=== PATIENT | male | born 1960 | race Caucasian/White ===

== ENCOUNTER 2018-07-07 12:13 | Inpatient (IN) | payer MEDICARE, MEDICAID ==
--- NOTE | 2018-07-07 12:55 | ED ---
General Adult HPI - General Chief complaint: Psychiatric Symptoms Stated complaint: mental health Time Seen by Provider: 07/07/18 12:26 Source: patient, RN notes reviewed Mode of arrival: ambulatory Limitations: no limitations - History of Present Illness Initial comments: Patient is a 58-year-old male presenting to the emergency room today with chief complaint of increased suicidal thoughts. Patient does admit that he had thoughts of jumping in front of a truck or a train. He states that the thoughts were becoming stronger last night so he came here today to be evaluated. Patient denies any thoughts of hurting anyone else. He denies any recent medication changes. Patient denies any recent fever, chills, shortness of breath, chest pain, back pain, abdominal pain, nausea or vomiting, numbness or tingling, dysuria or hematuria, constipation or diarrhea, headaches or visual changes, or any other complaints. - Related Data Home Medications Medication Instructions Recorded Confirmed Aspirin EC [Ecotrin Low Dose] 81 mg PO DAILY 07/07/18 07/07/18 Atorvastatin [Lipitor] 80 mg PO HS 07/07/18 07/07/18 Cyclobenzaprine [Flexeril] 5 mg PO HS PRN 07/07/18 07/07/18 Ergocalciferol (Vitamin D2) 50,000 unit PO Q7D 07/07/18 07/07/18 [Vitamin D2] Gabapentin 600 mg PO TID 07/07/18 07/07/18 HYDROcodone/APAP 10-325MG [[place] 1 tab PO BID PRN 07/07/18 07/07/18 10-325] Isosorbide Mononitrate ER [Imdur] 30 mg PO DAILY 07/07/18 07/07/18 Metoprolol Tartrate 25 mg PO DAILY 07/07/18 07/07/18 Multivitamin,Therapeutic [Thera] 1 tab PO DAILY 07/07/18 07/07/18 Nitroglycerin Sl Tabs [Nitrostat] 0.4 mg SUBLINGUAL Q5M PRN 07/07/18 07/07/18 Omeprazole 20 mg PO DAILY 07/07/18 07/07/18 QUEtiapine FUMARATE 400 mg PO HS 07/07/18 07/07/18 Ranitidine HCl 150 mg PO HS 07/07/18 07/07/18 Sertraline [Zoloft] 100 mg PO DAILY 07/07/18 07/07/18 buPROPion [Wellbutrin] 100 mg PO DAILY 07/07/18 07/07/18 traZODone HCL 12.5 mg PO QID PRN 07/07/18 07/07/18 Allergies Allergy/AdvReac Type Severity Reaction Status Date / Time No Known Allergies Allergy Verified 07/07/18 13:00 Review of Systems ROS Statement: Those systems with pertinent positive or pertinent negative responses have been documented in the HPI. ROS Other: All systems not noted in ROS Statement are negative. Past Medical History Past Medical History: Coronary Artery Disease (CAD), CVA/TIA, Hyperlipidemia, Myocardial Infarction ([place]) Additional Past Medical History / Comment(s): pneumonia, closed head injury History of Any Multi-Drug Resistant Organisms: None Reported Past Surgical History: Heart Catheterization With Stent, Orthopedic Surgery Additional Past Surgical History / Comment(s): esophogeal surgery, left femur and left hip with rods Past Psychological History: Anxiety, Depression Smoking Status: Current every day smoker Past Alcohol Use History: None Reported Past Drug Use History: Marijuana General Exam - General Exam Comments Initial Comments: General: The patient is awake and alert, in no distress, and does not appear acutely ill. Eye: There is normal conjunctiva bilaterally. No signs of icterus. Ears, nose, mouth and throat: There are moist mucous membranes and no oral lesions. Neck: The neck is supple Cardiovascular: There is a regular rate and rhythm. No murmur, rub or gallop is appreciated. Respiratory: Lungs are clear to auscultation, respirations are non-labored, breath sounds are equal. No wheezes, stridor, rales, or rhonchi. Musculoskeletal: Normal ROM, no tenderness. Neurological: A&O x 3. CN II-XII intact, There are no obvious motor or sensory deficits. Coordination appears grossly intact. Speech is normal. Skin: Skin is warm and dry and no rashes or lesions are noted. Psychiatric: Cooperative Limitations: no limitations Course Vital Signs 07/07/18 12:20 Temperature 98.2 F Pulse Rate 95 Respiratory 18 Rate Blood Pressure 130/82 O2 Sat by Pulse 97 Oximetry Medical Decision Making - Medical Decision Making Patient seen here in the emergency room by [facility]. They've recommended the patient be admitted to the hospital. Patient is willing to sign himself in. - Lab Data Lab Results 07/07/18 Range/Units 13:07 Urine Opiates Screen Not Detected (NotDetected) Ur Oxycodone Screen Not Detected (NotDetected) Urine Methadone Screen Not Detected (NotDetected) Ur Propoxyphene Screen Not Detected (NotDetected) Ur Barbiturates Screen Not Detected (NotDetected) U Tricyclic Antidepress Detected H (NotDetected) Ur Phencyclidine Scrn Not Detected (NotDetected) Ur Amphetamines Screen Not Detected (NotDetected) U Methamphetamines Scrn Not Detected (NotDetected) U Benzodiazepines Scrn Not Detected (NotDetected) Urine Cocaine Screen Not Detected (NotDetected) U Marijuana (THC) Screen Detected H (NotDetected) Disposition Clinical Impression: Suicidal ideation Disposition: TRANSFER TO PSYCH HOSP/UNIT Condition: Stable Is patient prescribed a controlled substance at d/c from ED?: No Referrals: [facility] [Primary Care Provider] - 1-2 days Time of Disposition: 15:28
[2018-07-07 13:38] LABS: Amphetamine Screen,Urine Not Detected (NotDetected); Barbiturate Screen,Urine Not Detected (NotDetected); Benzodiazepines Screen,Urine Not Detected (NotDetected); Cocaine Screen,Urine Not Detected (NotDetected); Methadone Screen, Urine Not Detected (NotDetected); Opiate Screen,Urine Not Detected (NotDetected); Oxycodone Screen, Urine Not Detected (NotDetected); Phencyclidine Screen,Urine Not Detected (NotDetected); Tricyclic Antidepressant,Urine Detected (NotDetected); Urn Cannabinoid Scrn Detected (NotDetected)
[2018-07-07] MEDS ORDERED: ACETAMINOPHEN TAB 500 MG TAB PO STA (16:34)
[2018-07-07] MEDS ORDERED: LORazepam 1 MG TAB PO PRN (17:54)
[2018-07-07] MEDS ORDERED: MAGNESIUM HYDROXIDE 2,400 MG/10 ML CUP PO PRN (17:54)
[2018-07-07] MEDS ORDERED: ZIPRASIDONE 20 MG VIAL IM PRN (17:54)
[2018-07-07] MEDS ORDERED: MAG HYDROX/AL HYDROX/SIMETH 30 ML CUP PO PRN (17:54)
[2018-07-07] MEDS ORDERED: CYCLOBENZAPRINE 5 MG TAB PO PRN (17:56)
[2018-07-07] MEDS ORDERED: traZODone HCL 50 MG TAB PO PRN (17:56)
[2018-07-07] MEDS ORDERED: NITROGLYCERIN SL TABS 0.4 MG TAB SUBLINGUAL PRN (17:56)
[2018-07-07] MEDS ORDERED: LORazepam 2 MG/ML INJ IM PRN (17:56)
[2018-07-07] MEDS: NICOTINE 14MG/24HR PATCH TRANSDERM SCH (19:18)
[2018-07-07] MEDS ORDERED: QUEtiapine 400 MG TAB PO SCH (21:00)
[2018-07-07] MEDS: FAMOTIDINE 20 MG TAB PO SCH (21:42)
[2018-07-07] MEDS: ATORVASTATIN 80 MG TAB PO SCH (21:42)
[2018-07-07] MEDS: GABAPENTIN 300 MG CAP PO SCH (21:42)
--- NOTE | 2018-07-08 00:55 | P.HPIM ---
History of Present Illness H&P Date: 07/08/18 Patient is a 58-year-old male with a PMH of lumbar spinal DJD, coronary artery disease status post multiple stents, and history of CVA presented to the ED due to worsening depression and suicidal ideation. The patient notes that he has been under a lot of stress recently and feels that he is not able to cope. He notes that along with caring for his disabled son and the patient's chronic debility due to his lower back pain and history of fracture, he has been having a difficult time with performing his ADLs. The patient notes that he had thought about possibly stepping in front of a bus or laying down on the train tracks and his life. He otherwise denied any active complaints including chest pain, shortness of breath, nausea, vomiting, fever, chills, or dysuria. The patient denied any active homicidal or suicidal ideations. Review of Systems Pertinent positives and negatives as discussed in HPI, a complete review of systems was performed and all other systems are negative. Past Medical History Past Medical History: Coronary Artery Disease (CAD), CVA/TIA, Hyperlipidemia, Myocardial Infarction ([place]) Additional Past Medical History / Comment(s): pneumonia, closed head injury History of Any Multi-Drug Resistant Organisms: None Reported Past Surgical History: Heart Catheterization With Stent, Orthopedic Surgery Additional Past Surgical History / Comment(s): esophogeal surgery, left femur and left hip with rods Past Psychological History: Anxiety, Depression Smoking Status: Current every day smoker Past Alcohol Use History: None Reported Past Drug Use History: Marijuana Medications and Allergies Home Medications Medication Instructions Recorded Confirmed Type Apixaban [Eliquis] 5 mg PO BID 07/07/18 07/07/18 History Aspirin EC [Ecotrin Low Dose] 81 mg PO DAILY 07/07/18 07/07/18 History Atorvastatin [Lipitor] 80 mg PO HS 07/07/18 07/07/18 History Cyclobenzaprine [Flexeril] 5 mg PO TID PRN 07/07/18 07/07/18 History Ergocalciferol (Vitamin D2) 50,000 unit PO Q7D 07/07/18 07/07/18 History [Vitamin D2] Gabapentin 600 mg PO TID 07/07/18 07/07/18 History Isosorbide Mononitrate ER [Imdur] 30 mg PO DAILY 07/07/18 07/07/18 History Metoprolol Tartrate 25 mg PO DAILY 07/07/18 07/07/18 History Multivitamin,Therapeutic [Thera] 1 tab PO DAILY 07/07/18 07/07/18 History Nitroglycerin Sl Tabs [Nitrostat] 0.4 mg SUBLINGUAL Q5M PRN 07/07/18 07/07/18 History Omeprazole 20 mg PO DAILY 07/07/18 07/07/18 History Pregabalin [Lyrica] 75 mg PO BID 07/07/18 07/07/18 History QUEtiapine FUMARATE [SEROquel] 300 mg PO HS 07/07/18 07/07/18 History Ranitidine HCl 150 mg PO HS 07/07/18 07/07/18 History Sertraline [Zoloft] 100 mg PO DAILY 07/07/18 07/07/18 History buPROPion [Wellbutrin] 100 mg PO DAILY 07/07/18 07/07/18 History traZODone HCL 12.5 mg PO QID PRN 07/07/18 07/07/18 History Allergies Allergy/AdvReac Type Severity Reaction Status Date / Time No Known Allergies Allergy Verified 07/07/18 13:00 Physical Exam Vitals: Vital Signs Temp Pulse Pulse Resp BP BP Pulse Ox 07/07/18 18:30 96.9 F L 72 16 117/72 07/07/18 16:03 86 15 136/77 96 07/07/18 12:20 98.2 F 95 18 130/82 97 Intake and Output 07/07/18 07/07/18 07/08/18 14:59 22:59 06:59 Other: Weight 90.628 kg General: non toxic, no distress, appears at stated age, normal weight Derm: no unusual rashes/lesions no unusual ecchymoses, warm, dry Head: atraumatic, normocephalic, symmetric Eyes: EOMI, no lid lag, anicteric sclera, pupils equal round reactive to light ENT: Nose and ears atraumatic, no thrush, no pharyngeal erythema Neck: No thyromegaly, no cervical lymphadenopathy, trachea midline, supple Mouth: no lip lesion, mucus membranes moist Cardiovascular: S1S2 reg, no murmur, positive posterior tibial pulse bilateral, no edema, capillary refill less than 2 seconds Lungs: CTA bilateral, no rhonchi, no rales , no accessory muscle use Abdominal: soft, nontender to palpation, no guarding, no appreciable organomegaly, normal bowel sounds Ext: no gross muscle atrophy, muscle strength 5 out of 5 in all 4 extremities grossly, no contractures, Neuro: CN II-XI grossly intact, light touch intact all 4 extremities, finger to nose within normal limits, Psych: Alert, oriented, appropriate affect Results Labs: Abnormal Lab Results - Last 24 Hours (Table) 07/07/18 Range/Units 13:07 U Tricyclic Antidepress Detected H (NotDetected) U Marijuana (THC) Screen Detected H (NotDetected) Assessment and Plan Plan: Suicidal ideation, depression -As per psychiatry -Follow-up TSH Coronary artery disease and history of CVA -Continue with home medications: Aspirin, Lipitor Thank you for allowing us to participate in the care of this patient. We will follow peripherally. Do not hesitate to contact us with questions. Someone can be reached from the [facility] hospitalist group at all hours of the day at [phone].
[2018-07-08 08:33] LABS: Basophils % (A) 1 %; Eosinophils # (A) 0.1 k/uL (0-0.7); Eosinophils % (A) 2 %; HCT 46.7 % (39.0-53.0); Lymphocytes # (A) 1.4 k/uL (1.0-4.8); Lymphocytes % (A) 25 %; MCH 28.9 pg (25.0-35.0); MCHC 32.2 g/dL (31.0-37.0); MCV 89.8 fL (80.0-100.0); Mean Platelet Volume 7.5; Monocytes # (A) 0.3 k/uL (0-1.0); Monocytes % (A) 6 %; Neutrophils # (A) 3.7 k/uL (1.3-7.7); Neutrophils % (A) 66 %; Platelet Count 190 k/uL (150-450); WBC 5.6 k/uL (3.8-10.6)
[2018-07-08] MEDS: PANTOPRAZOLE 40 MG TABLET PO SCH (08:46)
[2018-07-08] MEDS: ASPIRIN 81 MG PO SCH (08:46)
[2018-07-08] MEDS: ISOSORBIDE MONONITRATE ER 30 MG TAB.ER.24H PO SCH (08:47)
[2018-07-08] MEDS: METOPROLOL TARTRATE 25 MG TAB PO SCH (08:47)
[2018-07-08] MEDS: NICOTINE 14MG/24HR PATCH TRANSDERM SCH (08:47)
[2018-07-08] MEDS: SERTRALINE 100 MG TAB PO SCH (08:47)
[2018-07-08 08:49] LABS: ALT 34 U/L (21-72); AST 22 U/L (17-59); Albumin 3.8 g/dL (3.5-5.0); Alkaline Phosphatase 170 U/L (38-126); Anion Gap 5 mmol/L; Blood Urea Nitrogen 13 mg/dL (9-20); Calcium 9.6 mg/dL (8.4-10.2); Carbon Dioxide 26 mmol/L (22-30); Chloride 109 mmol/L (98-107); Cholesterol 160 mg/dL (<200); Glucose 97 mg/dL (74-99); HDL Cholesterol 54 mg/dL (40-60); LDL Cholesterol,Calculated 69 mg/dL (0-99); Potassium 4.7 mmol/L (3.5-5.1); Sodium 140 mmol/L (137-145); Total Bilirubin 0.4 mg/dL (0.2-1.3); Total Protein 6.3 g/dL (6.3-8.2); Triglycerides 185 mg/dL (<150)
[2018-07-08] MEDS: GABAPENTIN 300 MG CAP PO SCH ×3 (08:50→20:53)
[2018-07-08] MEDS ORDERED: buPROPion 100 MG TAB PO SCH (09:00)
--- NOTE | 2018-07-08 11:27 | HP ---
HISTORY AND PHYSICAL DATE OF SERVICE DICTATION: 07/08/2018 IDENTIFYING DATA: This patient is a 58-year-old male who was admitted to the mental health unit through the emergency room for acute suicidal ideation. HISTORY OF PRESENT ILLNESS: The patient had presented to the emergency room as he drove himself to the hospital stating he had acute suicidal ideation. He reported a plan of wanting to jump in front of a train or a semi-truck. He indicates his mood has been markedly depressed. He feels hopeless. He has been tearful on a regular basis. Sleep has been disturbed. Appetite is decreased. He finds he has low energy, motivation, and has feelings of anhedonia. He indicates that he is prescribed psychotropic medication, but has been noncompliant with those for approximately 12 days out of the last 30 days. He states he stopped taking them consistently as it did not matter as he was going to end his life anyway. He reports that he is homeless and he is overwhelmed with having nowhere to live and not being able to find any resources to get his own place. He indicates he has applied for senior housing [place] response. He reports his concentration and memory have been impacted by the stroke he suffered this past summer. He reports no thoughts of harming others. He endorses no current auditory or visual hallucinations or any specific delusions. He states for the last 3 years he had intermittently experienced an auditory hallucination that he named JED. He states that this voice would make several derogatory statements. He reports that he has not had that hallucination for the last 2 months. He endorses no hypomanic or manic episodes. He reports no ownership of firearms. PAST PSYCHIATRIC HISTORY: This would be his third or fourth inpatient admission. His last was at [facility] approximately 3 months ago. He indicates that he is open with [facility] and sees a therapist named Renee. He is unsure as to who his prescribing clinician is. He describes a history of being on Zoloft 100 mg daily, Seroquel 300 mg at bedtime, Wellbutrin 100 mg daily, trazodone 12.5 mg up to 4 times daily as needed. He does have a history of suicide attempts in the recent past where he stood on the train tracks, hoping an [employer] train would come. He states he was found by another individual and was talked into going to the hospital, which precipitated his admission to [facility]. He does not recall what other psychotropic medications he has been on in the past. PAST MEDICAL HISTORY: History of cerebrovascular accident last summer, history of 2 myocardial infarctions. He has a total of 4 stents placed, history of closed head injury where he fell off of a porch face-first, fracturing his cheek bones and palate. MEDICATIONS: He is currently on aspirin, Lipitor, Flexeril, vitamin D, Pepcid, Neurontin, Imdur, Lopressor, multivitamin, Nitrostat as needed, Protonix. ALLERGIES: No known drug allergies. CHEMICAL DEPENDENCY HISTORY: He reports using 1 to 2 beers per week. He reports using marijuana on a frequent basis for pain, as he is no longer on [place]. He reports no use of any other illicit drugs. He has never been placed in residential treatment for chemical dependency reasons. FAMILY PSYCHIATRIC HISTORY: A sibling had an undescribed psychiatric illness. No history of suicides in the family. FAMILY CHEMICAL DEPENDENCY HISTORY: Alcohol use has been prevalent in both sides of his family. SOCIAL HISTORY: The patient is 58 years old. He is . He is homeless. He is unemployed and has a disability income. He has an 8th grade education. No history of service. He has 1 living brother, 1 living sister. Two sisters are . He has 2 children, a 34-year-old daughter and a 36-year-old son. He states that his son incurred what appears to be an anoxic injury and has subsequent cognitive impairment. He is originally from [place]. LEGAL HISTORY: He was arrested in the s for DUI. ABUSE HISTORY: None reported. MENTAL STATUS EXAM: The patient is a male appearing his stated age. He has a disheveled appearance. He is dressed in hospital attire. He is ambulating with a wheeled walker. He indicates his mood is depressed. He feels hopeless. He has ongoing suicidal thoughts, although he feels safe here in the hospital. He reports no homicidal ideation, intent, or plan. He describes no current auditory or visual hallucinations or any specific delusions. He demonstrates no tangential thinking, loose associations or flight of ideas and does not appear hypomanic or manic. He does demonstrate word- finding difficulties throughout the conversation and he indicates having memory impairment. He demonstrates no verbal or physical aggressiveness. He demonstrates no involuntary repetitive movements. Affect is dysphoric. He is oriented to person, place, and dates. He has difficulty with short-term recall. He could not name the days of the week backwards as he omitted several days with his attempt. STRENGTHS: Willingness to receive treatment, income, open with [facility]. WEAKNESSES: Homelessness, medical comorbidities, intellect average. IMPRESSION: 1. Major depressive disorder, recurrent, severe, without psychosis. Rule out cannabis use disorder. 2. Medical comorbidities include history of cerebrovascular accident, myocardial infarction. 3. Homelessness, limited support. PLAN OF TREATMENT: The patient has been admitted to the mental health unit voluntarily. We reviewed his presenting symptoms and treatment options. We will continue him on the Seroquel at 300 mg at bedtime, Zoloft 100 mg daily, Wellbutrin will be changed to the XL formulation using 150 mg daily. We will review any available [facility] records in terms of medication management. He has already been seen by Internal Medicine for routine history and physical exam. Social Work has met with the patient to complete a psychosocial assessment and begin discharge planning. We will monitor him for safety and encourage full participation in the milieu. We will involve any available family, friends in treatment and discharge planning as he will allow. GRACE / ERIK: [id number] /
[2018-07-08] MEDS: MULTIVITAMINS, THERA 1 EACH TAB PO SCH (12:31)
[2018-07-08] MEDS: ACETAMINOPHEN TAB 325 MG TAB PO PRN (12:31)
[2018-07-08 17:36] LABS: Hemoglobin A1C 5.7 % (4.0-6.0)
[2018-07-08] MEDS: NYSTATIN 100,000 UNIT/GM POWD 15 GM TOPICAL SCH (20:52)
[2018-07-08] MEDS: FAMOTIDINE 20 MG TAB PO SCH (20:53)
[2018-07-08] MEDS: ATORVASTATIN 80 MG TAB PO SCH (20:53)
[2018-07-08] MEDS: QUEtiapine 100 MG TAB PO SCH (20:53)
[2018-07-09] MEDS: NICOTINE 14MG/24HR PATCH TRANSDERM SCH (09:06)
[2018-07-09] MEDS: PANTOPRAZOLE 40 MG TABLET PO SCH (09:06)
[2018-07-09] MEDS: GABAPENTIN 300 MG CAP PO SCH ×3 (09:06→21:36)
[2018-07-09] MEDS: ASPIRIN 81 MG PO SCH (09:06)
[2018-07-09] MEDS: SERTRALINE 100 MG TAB PO SCH (09:06)
[2018-07-09] MEDS: METOPROLOL TARTRATE 25 MG TAB PO SCH (09:06)
[2018-07-09] MEDS: buPROPion XL 150 MG TAB.ER.24H PO SCH (09:06)
[2018-07-09] MEDS: ISOSORBIDE MONONITRATE ER 30 MG TAB.ER.24H PO SCH (09:09)
[2018-07-09] MEDS: NYSTATIN 100,000 UNIT/GM POWD 15 GM TOPICAL SCH ×2 (09:40→21:34)
--- NOTE | 2018-07-09 10:57 | P.PN ---
Progress Note - Text Interval history: The patient is found at the medication window he follows me to an interview room. He indicates his mood is about the same in terms of feeling depressed and hopeless. He reports making an effort to attend some groups. Sleep was interrupted last night but staff reported he slept 7 hours. Appetite stable. He discussed having some phone contact with his son. The patient indicates that he has somewhere to stay for approximately a week and a half upon discharge but is still concerned that he needs another place to say permanently. We reviewed his psychotropic medications he has no questions or concerns regarding those today. Interestingly the patient states he does not recall our conversation at all from yesterday. Staff report that he does clearly have some short-term memory impairment as well as word finding difficulty. Mental status exam: The patient is alert he is a disheveled appearance he is ambulating without his walker. Hygiene grooming fair. Eye contact is intermittent. He does have spontaneous speech. He reports continued hopelessness thoughts with suicidal ideation although he feels safe here in the hospital. No homicidal ideation intent or plan. He is reporting no auditory or visual hallucinations or any specific delusions. He demonstrates no verbal or physical aggressiveness no involuntary repetitive movements. Insight and judgment impaired. Throughout the session he describes word finding difficulties and reports no recollection of our interaction yesterday. Plan: The patient will continue on his current psychotropic medications. We will continue to encourage his full participation in the milieu. We will monitor his vital signs. He requires continued psychiatric hospitalization for acute safety reasons.
[2018-07-09 11:54] VITALS: BMI 30.7
[2018-07-09] MEDS: MULTIVITAMINS, THERA 1 EACH TAB PO SCH (13:26)
[2018-07-09] MEDS ORDERED: INFLUENZA VACCINE (6 MOS+) 60 MCG/0.5 ML SYRINGE IM ONE (14:27)
[2018-07-09] MEDS: ACETAMINOPHEN TAB 325 MG TAB PO PRN (14:58)
[2018-07-09] MEDS: QUEtiapine 100 MG TAB PO SCH (21:30)
[2018-07-09] MEDS: FAMOTIDINE 20 MG TAB PO SCH (21:33)
[2018-07-09] MEDS: ATORVASTATIN 80 MG TAB PO SCH (21:33)
[2018-07-10] MEDS: buPROPion XL 150 MG TAB.ER.24H PO SCH (09:00)
[2018-07-10] MEDS: NICOTINE 14MG/24HR PATCH TRANSDERM SCH (09:00)
[2018-07-10] MEDS: ASPIRIN 81 MG PO SCH (09:00)
[2018-07-10] MEDS: NYSTATIN 100,000 UNIT/GM POWD 15 GM TOPICAL SCH ×2 (09:01→21:14)
[2018-07-10] MEDS: PANTOPRAZOLE 40 MG TABLET PO SCH (09:01)
[2018-07-10] MEDS: GABAPENTIN 300 MG CAP PO SCH ×3 (09:01→21:14)
[2018-07-10] MEDS: ISOSORBIDE MONONITRATE ER 30 MG TAB.ER.24H PO SCH (09:01)
[2018-07-10] MEDS: SERTRALINE 100 MG TAB PO SCH (09:01)
[2018-07-10] MEDS: METOPROLOL TARTRATE 25 MG TAB PO SCH (09:01)
--- NOTE | 2018-07-10 09:33 | P.PN ---
Progress Note - Text Interval history: The patient is found in the hallway he follows me to an interview room. He indicates that he feels a little better than yesterday. He still feels depressed and hopeless at times. He is feeling less anxious. Describes having some difficulty sleeping. He states historically he has done better with Seroquel at 400 mg at bedtime. He indicates he has been eating. He has no other questions regarding his psychotropic medication. He reports attending some groups. Mental status exam: The patient is alert he is a disheveled appearance he is dressed in his own clothing. Hygiene is adequate. Eye contact is appropriate speech is fluent spontaneous nonpressured. He indicates his mood is a little better than yesterday. He still feels down and sad at times with some hopeless thinking. He reports feeling safe here in the hospital in terms of suicidal ideation. He reports no homicidal ideation intent or plan. He is reporting no auditory or visual hallucinations or any specific delusions. He demonstrates no objective evidence of psychosis. He does struggle with word finding throughout the conversation. Short-term memory is impacted we presumed from his prior stroke. He is apologetic when he cannot remember details from yesterday. He demonstrates no verbal or physical aggressiveness. He maintains a constricted affect. He demonstrates no involuntary repetitive movements. He is oriented to day the week as is June is 2018. Plan: The patient will continue on his current medications however we will titrate the Seroquel to 400 mg at bedtime. We will monitor him for safety and encourage continued participation in the milieu. There appears to be some improvement since he has been here he may be appropriate for discharge as soon as Friday. We will continue to assess him for safety. Vital signs reviewed. He requires continued psychiatric hospitalization for assessment and treatment.
[2018-07-10] MEDS: MULTIVITAMINS, THERA 1 EACH TAB PO SCH (12:49)
[2018-07-10] MEDS: ACETAMINOPHEN TAB 325 MG TAB PO PRN (16:16)
[2018-07-10] MEDS: QUEtiapine 400 MG TAB PO SCH (21:14)
[2018-07-10] MEDS: FAMOTIDINE 20 MG TAB PO SCH (21:14)
[2018-07-10] MEDS: ATORVASTATIN 80 MG TAB PO SCH (21:14)
[2018-07-11] MEDS: METOPROLOL TARTRATE 25 MG TAB PO SCH (09:08)
[2018-07-11] MEDS: SERTRALINE 100 MG TAB PO SCH (09:08)
[2018-07-11] MEDS: PANTOPRAZOLE 40 MG TABLET PO SCH (09:08)
[2018-07-11] MEDS: buPROPion XL 150 MG TAB.ER.24H PO SCH (09:08)
[2018-07-11] MEDS: ASPIRIN 81 MG PO SCH (09:08)
[2018-07-11] MEDS: NICOTINE 14MG/24HR PATCH TRANSDERM SCH (09:08)
--- NOTE | 2018-07-11 09:10 | P.PN ---
Progress Note - Text Interval history: The patient is found in the hallway he follows me to an interview room. He indicates his mood is improving. He is looking forward to being discharged and we discussed Friday as a possible discharge date. He reports no suicidal ideation. Hopeless thinking is resolving. He states he slept much better with the titration of Seroquel staff reportedly slept 7 hours. Appetite stable he has been attending groups. He describes significant physical pain and acid we titrate the Neurontin further. Mental status exam: The patient is an overweight male he seated calmly in his chair. He is pleasant and cooperative. He denies having any acute suicidal or homicidal ideation intent or plan. Affect is brighter. He is reporting no auditory or visual hallucinations or any specific delusions. There is no observed evidence of psychosis. He does not appear hypomanic or manic. He demonstrates no verbal or physical aggressiveness he demonstrates no repetitive involuntary movements. Insight and judgment slowly improving. He continues to demonstrate the same word finding difficulty with short-term memory impairment. Plan: The patient will continue on his current psychotropics we will titrate the Neurontin 800 mg 3 times daily for pain. Vital signs reviewed. He is encouraged to continue participating in the milieu. We will monitor him for safety. If he continues to clinically improving anticipate a discharge of Friday.
[2018-07-11] MEDS: NYSTATIN 100,000 UNIT/GM POWD 15 GM TOPICAL SCH ×2 (09:13→21:08)
[2018-07-11] MEDS: ACETAMINOPHEN TAB 325 MG TAB PO PRN ×2 (09:14→17:42)
[2018-07-11] MEDS: ISOSORBIDE MONONITRATE ER 30 MG TAB.ER.24H PO SCH (09:25)
[2018-07-11] MEDS: GABAPENTIN 300 MG CAP PO SCH (09:28)
[2018-07-11] MEDS ORDERED: GABAPENTIN 300 MG CAP PO STA (10:39)
[2018-07-11] MEDS: MULTIVITAMINS, THERA 1 EACH TAB PO SCH (12:57)
[2018-07-11] MEDS: GABAPENTIN 400 MG CAP PO SCH ×2 (15:57→21:08)
[2018-07-11] MEDS: FAMOTIDINE 20 MG TAB PO SCH (21:08)
[2018-07-11] MEDS: ATORVASTATIN 80 MG TAB PO SCH (21:08)
[2018-07-11] MEDS: QUEtiapine 400 MG TAB PO SCH (21:08)
[2018-07-12] MEDS: buPROPion XL 150 MG TAB.ER.24H PO SCH (08:54)
[2018-07-12] MEDS: PANTOPRAZOLE 40 MG TABLET PO SCH (08:55)
[2018-07-12] MEDS: ASPIRIN 81 MG PO SCH (08:55)
[2018-07-12] MEDS: ISOSORBIDE MONONITRATE ER 30 MG TAB.ER.24H PO SCH (08:55)
[2018-07-12] MEDS: METOPROLOL TARTRATE 25 MG TAB PO SCH (08:55)
[2018-07-12] MEDS: GABAPENTIN 400 MG CAP PO SCH ×3 (08:55→21:03)
[2018-07-12] MEDS: NICOTINE 14MG/24HR PATCH TRANSDERM SCH (08:56)
[2018-07-12] MEDS: SERTRALINE 100 MG TAB PO SCH (08:56)
[2018-07-12] MEDS: NYSTATIN 100,000 UNIT/GM POWD 15 GM TOPICAL SCH ×2 (09:53→21:04)
[2018-07-12] MEDS: MULTIVITAMINS, THERA 1 EACH TAB PO SCH (11:50)
[2018-07-12] MEDS ORDERED: ERGOCALCIFEROL 50,000 UNIT CAP PO SCH (12:00)
--- NOTE | 2018-07-12 13:57 | P.PN ---
Progress Note - Text Interval history: The patient is found in the [facility] he follows me to an interview room. He indicates his mood is happy. He feels he progressively is doing better each day in terms of mood. He is looking forward to being discharged tomorrow. He has been attending groups. He has no questions or concerns regarding his medication. Mental status exam: The patient is alert he is dressed in his own clothing hygiene grooming are adequate. Speech is fluent spontaneous nonpressured. He denies having any suicidal or homicidal ideation intent or plan. He is no longer feeling hopeless. He is reporting no auditory or visual hallucinations or any specific delusions. He demonstrates no tangential thinking loose associations or flight of ideas he does not appear hypomanic or manic. He demonstrates no verbal or physical aggressiveness. Insight and judgment are improving. Plan: The patient will continue on his current psychiatric medication. He is clinically stabilizing we will anticipate a discharge tomorrow. We will continue monitoring him for safety and encouraging full participation in the milieu. Vital signs reviewed.
[2018-07-12] MEDS: FAMOTIDINE 20 MG TAB PO SCH (21:03)
[2018-07-12] MEDS: ATORVASTATIN 80 MG TAB PO SCH (21:03)
[2018-07-12] MEDS: QUEtiapine 400 MG TAB PO SCH (21:03)
[2018-07-13 06:49] VITALS: TEMP 98
[2018-07-13] MEDS: GABAPENTIN 400 MG CAP PO SCH (07:49)
[2018-07-13] MEDS: NICOTINE 14MG/24HR PATCH TRANSDERM SCH (07:49)
[2018-07-13] MEDS: ASPIRIN 81 MG PO SCH (07:49)
[2018-07-13] MEDS: buPROPion XL 150 MG TAB.ER.24H PO SCH (07:49)
[2018-07-13] MEDS: METOPROLOL TARTRATE 25 MG TAB PO SCH (07:49)
[2018-07-13] MEDS: ISOSORBIDE MONONITRATE ER 30 MG TAB.ER.24H PO SCH (07:49)
[2018-07-13] MEDS: PANTOPRAZOLE 40 MG TABLET PO SCH (07:50)
[2018-07-13] MEDS: SERTRALINE 100 MG TAB PO SCH (07:50)
[2018-07-13] MEDS: NYSTATIN 100,000 UNIT/GM POWD 15 GM TOPICAL SCH (07:56)
[2018-07-13 07:57] VITALS: BP 110/65; PULSE 74; RESP 18
--- NOTE | 2018-07-13 09:34 | P.DS ---
Providers Date of admission: 07/07/18 17:47 Expected date of discharge: 07/13/18 Attending physician: Ramon Hwang Consults: 07/07/18 17:54 Consult Physician Routine Consulting Provider: Keri Simental Consult Reason/Comments: H&P and medical Do you want consulting provider notified?: Yes Primary care physician: [facility] - Discharge Diagnosis(es) (1) Major depressive disorder, recurrent severe without psychotic features Current Visit: Yes Status: Acute Priority: High Hospital Course: Brief summary of admission note: This patient is a 58-year-old male who was admitted to the mental health unit through the emergency room for acute suicidal ideation. The patient had driven himself to the hospital with suicidal thoughts with a plan of jumping in front of a train or a semitruck. He reported feeling markedly depressed he was feeling hopeless and was tearful on a regular basis. Sleep appetite and energy were impaired. He had been partially compliant with his medications but reported missing numerous days. Confounding his situation, he is homeless. For full details please refer to my psychiatric evaluation dated 07/08/2018. Summary of hospital course: The patient was admitted to the mental health unit voluntarily. We reviewed his presenting symptoms and treatment options. We reinitiated his Zoloft Seroquel and Wellbutrin XL. The patient attended groups he demonstrated no agitated behavior. He was seen by internal medicine for routine history and physical exam. Social work met with the patient to complete a psychosocial assessment and for discharge planning purposes. During the course of the hospitalization the patient reported a resolution of his suicidal ideation. He demonstrated future oriented thinking. The patient attended groups and was able to attend to his activities of daily living here on the mental health unit. Mental status exam: The patient is a male appearing his stated age. He presents with adequate hygiene grooming eye contact is appropriate. He is dressed in his own clothing. Speech is fluent spontaneous nonpressured. He demonstrates no tangential thinking loose associations or flight of ideas. He does not appear hypomanic or manic. He is reporting no auditory or visual hallucinations or any specific delusions. There is no observed evidence of psychosis. He demonstrates no verbal or physical aggressiveness he demonstrates no involuntary repetitive movements. Affect is brighter he demonstrates an appropriate range of affect he identifies his mood as being good. Again he spontaneously describes future oriented thoughts. Insight and judgment have improved. Cognitively he does struggle with word finding and some short-term memory most likely due to his history of cerebrovascular accident. Impressions 1. Major depressive disorder recurrent severe without psychosis, rule out cannabis use disorder 2. Medical comorbidities include history of cerebrovascular accident myocardial infarction 3. Limited support Plan: The patient will be discharged mental health unit today he will reside with an acquaintance where he is renting a room. Social work will arrange his outpatient mental health follow-up. He will continue on Wellbutrin XL 150 mg in the morning Zoloft 100 mg in the evening Seroquel 400 mg in the evening. He will follow up with primary care and other specialists as needed. He is instructed to abstain from any use of alcohol marijuana or illicit drugs as these will elevate his safety risk. He did not wish to participate in inpatient chemical dependency treatment. At this time there is no imminent safety risk he is appropriate for transition to outpatient care. He is instructed to return to the hospital with any acute safety concerns. Patient Condition at Discharge: Stable Plan - Discharge Summary New Discharge Prescriptions: New buPROPion XL [Wellbutrin XL] 150 mg PO DAILY #30 tab.er.24h Cyclobenzaprine [Flexeril] 5 mg PO HS PRN #30 tab PRN Reason: Muscle Spasm Gabapentin [Neurontin] 800 mg PO TID #45 tablet Nicotine 14Mg/24Hr Patch [Habitrol] 1 patch TRANSDERM DAILY #10 patch Nystatin 100,000 Unit/gm Powd [Mycostatin Powder] 1 applic TOPICAL BID #1 applic QUEtiapine [SEROquel] 400 mg PO HS #30 tab Continue Aspirin EC [Ecotrin Low Dose] 81 mg PO DAILY #30 tablet. Atorvastatin [Lipitor] 80 mg PO HS #30 tab Ergocalciferol (Vitamin D2) [Vitamin D2] 50,000 unit PO Q7D #4 capsule Isosorbide Mononitrate ER [Imdur] 30 mg PO DAILY #30 tab.er.24h Metoprolol Tartrate 25 mg PO DAILY #30 tablet Multivitamin,Therapeutic [Thera] 1 tab PO DAILY #30 tablet Nitroglycerin Sl Tabs [Nitrostat] 0.4 mg SUBLINGUAL Q5M PRN #10 tab PRN Reason: CHEST PAIN Omeprazole 20 mg PO DAILY #30 capsule. Ranitidine HCl 150 mg PO HS #30 tablet Sertraline [Zoloft] 100 mg PO DAILY #30 tab Discontinued traZODone HCL 12.5 mg PO QID PRN PRN Reason: Pain Gabapentin 600 mg PO TID buPROPion [Wellbutrin] 100 mg PO DAILY Cyclobenzaprine [Flexeril] 5 mg PO TID PRN PRN Reason: Muscle Spasm QUEtiapine FUMARATE [SEROquel] 300 mg PO HS Pregabalin [Lyrica] 75 mg PO BID Apixaban [Eliquis] 5 mg PO BID Discharge Medication List Aspirin EC [Ecotrin Low Dose] 81 mg PO DAILY #30 tablet. 07/13/18 [Rx] Atorvastatin [Lipitor] 80 mg PO HS #30 tab 07/13/18 [Rx] Cyclobenzaprine [Flexeril] 5 mg PO HS PRN #30 tab 07/13/18 [Rx] Ergocalciferol (Vitamin D2) [Vitamin D2] 50,000 unit PO Q7D #4 capsule 07/13/18 [Rx] Gabapentin [Neurontin] 800 mg PO TID #45 tablet 07/13/18 [Rx] Isosorbide Mononitrate ER [Imdur] 30 mg PO DAILY #30 tab.er.24h 07/13/18 [Rx] Metoprolol Tartrate 25 mg PO DAILY #30 tablet 07/13/18 [Rx] Multivitamin,Therapeutic [Thera] 1 tab PO DAILY #30 tablet 07/13/18 [Rx] Nicotine 14Mg/24Hr Patch [Habitrol] 1 patch TRANSDERM DAILY #10 patch 07/13/18 [ Rx] Nitroglycerin Sl Tabs [Nitrostat] 0.4 mg SUBLINGUAL Q5M PRN #10 tab 07/13/18 [Rx ] Nystatin 100,000 Unit/gm Powd [Mycostatin Powder] 1 applic TOPICAL BID #1 applic 07/13/18 [Rx] Omeprazole 20 mg PO DAILY #30 capsule. 07/13/18 [Rx] QUEtiapine [SEROquel] 400 mg PO HS #30 tab 07/13/18 [Rx] Ranitidine HCl 150 mg PO HS #30 tablet 07/13/18 [Rx] Sertraline [Zoloft] 100 mg PO DAILY #30 tab 07/13/18 [Rx] buPROPion XL [Wellbutrin XL] 150 mg PO DAILY #30 tab.er.24h 07/13/18 [Rx] Follow up Appointment(s)/Referral(s): [facility] [Primary Care Provider] - 1-2 days
[2018-07-13] MEDS: MULTIVITAMINS, THERA 1 EACH TAB PO SCH (11:53)
== END 2018-07-13 12:08 | disposition home or self-care (01) | DRG 885 ==
LOC: EC 12:13 → 3MHU 17:47
PROVIDERS: ADMIT Psychiatry & Neurology Psychiatry; ATTEND Psychiatry & Neurology Psychiatry
DX: F33.2 Major depressive disorder, recurrent severe without psychotic features (principal); R45.851 Suicidal ideations; I69.311 Memory deficit following cerebral infarction; Z91.128 Patient's intentional underdosing of medication regimen for other reason; R40.2362 Coma scale, best motor response, obeys commands, at arrival to emergency department; R40.2142 Coma scale, eyes open, spontaneous, at arrival to emergency department; R40.2252 Coma scale, best verbal response, oriented, at arrival to emergency department; E78.5 Hyperlipidemia, unspecified; B37.2 Candidiasis of skin and nail; Z23 Encounter for immunization; F41.9 Anxiety disorder, unspecified; I25.10 Atherosclerotic heart disease of native coronary artery without angina pectoris; T43.96XA Underdosing of unspecified psychotropic drug, initial encounter; M19.90 Unspecified osteoarthritis, unspecified site; M54.5 Low back pain; G47.9 Sleep disorder, unspecified; F17.200 Nicotine dependence, unspecified, uncomplicated; Z71.6 Tobacco abuse counseling; Z79.01 Long term (current) use of anticoagulants; Z79.82 Long term (current) use of aspirin; Z79.899 Other long term (current) drug therapy; Z59.0 Homelessness; I25.2 Old myocardial infarction; Z87.01 Personal history of pneumonia (recurrent); Z87.820 Personal history of traumatic brain injury; Z95.5 Presence of coronary angioplasty implant and graft; Z91.5 Personal history of self-harm
CPT/HCPCS: 80053; 80061; 80306; 82075; 83036; 84443; 85025; 90686; 99285

== ENCOUNTER → 2021-12-19 | Outpatient (CLI) | payer MEDICARE, OTHER ==
[2021-12-19 14:28] VITALS: BP 115/79; PULSE 79; RESP 18; TEMP 97.7
--- NOTE | 2021-12-19 15:28 | P.PAINPG ---
PQRS Measure Charge Sheet Comment: HISTORY OF PRESENT ILLNESS: 64 yr old male as a referral from Dr Froylan Hawkins presents today with severe and chronic LBP x 3 yrs secondary to DDD and facet arthropathy for evaluation. Pt states his pain level is currently at 6/10 in intensity, constant, localized in the mid to lower aspect of his lumbar spine, sharp, shooting in character w radiation of pain towards the B hips. Pain is provoked w walking/ bending/ lifting consecutively for 15 minutes. Pain is alleviated with PT for 6 weeks 5 months ago, heat, medications (Crestview, Neurontin), laying supine, heat and rest. PMH: HTN, MDD/ Anxiety, Hyperlipidemia PSH: R TKA (2020), L hip Maurice Placement (1989), L Femur Fx s/p Fall (1989), Esophageal Surgery, Colonoscopy (2018) SH: 1/2 ppd tobacco user, Rare ETOH use, No illicit drug use FH: Non contributory All: NKDA Meds: See list REVIEW OF ORGAN SYSTEMS: CONSTITUTIONAL: No fevers or chills. No recent weight loss. NEUROLOGICAL: + numbness and tingling along the distal extremities. No seizure disorders or headaches. MUSCULOSKELETAL: + pain PSYCHIATRIC: Denies current depression or suicidal thoughts. Physical Examinations : Constitutional : Cooperative , not in acute distress . Neurologic : Cranial nerve II to XII intact. No focal neurological deficits. Psychiatric : alert & oriented x 3. Matching mood & appropriate affect. Judgment & insight intact. Musculoskeletal : Cervical Spine Motor strength in the deltoid and biceps: Normal right side. Normal Left side Motor strength biceps and the wrist extensors: Normal right side . Normal left side Motor strength in the triceps muscle: Normal right side. Normal left side Deep tendon reflexes: Normal at the biceps. Normal at Brachioradialis. Normal at triceps Vertebral body tenderness to deep palpation over Cervical facet loading test: positive bilaterally Spurling test: positive bilaterally Neck distraction test: positive bilaterally Ean sign: positive bilaterally Lumbar spine Motor strength lower extremities ,thigh and legs 5/5 Right side , 5/5 Left side Deep tendon reflexes : Normal Knee Jerk. Normal Ankle Jerk Vertebral body tenderness over L3, L4, L5 Lumbar facet Loading Test: positive Right / positive Left Range of motion of the lumbar spine Flexion 30 degrees, extension 10 degrees Straight Leg Raise test: Left/ Right positive at <30 degree Onesimo test: positive right / positive left. Severe tenderness over the Sacroiliac joint on the Right / Left sides Gaenslen test: positive bilaterally Seated flexion test: positive bilaterally. Sacral spine : Severe tenderness over the Sacroiliac joint: right side / left side Range of motion: Flexion of the lumbar spine <60 degrees Range of motion: Extension of the lumbar spine <20 degrees Gaenslen's Test positive Que's Test positive Onesimo test: positive right side / left side Thigh Thrust Test Sacral Thrust Test Imaging: At Dr Hamm's office in [place]. Attempts to call office but they closed at 1pm. Will need medical records for continuity of care. Assessment/ Plan : Lumbar DDD Recommendation of medication fills. Crestview 100/325 #18 NR, Zanaflex 4mg #90 NR. Pt may return to our clinic within 2-4 weeks when we obtain medical records for a re evaluation and to explore further treatment options. Risks, benefits of procedure discussed and patient verbalized understanding. Admits to Eliquis use and denies medical history of diabetes. Protocol for discontinuation/ continuation of medications honey procedure discussed. Need medical clearance from Dr. Larson in [place]. All questions answered. I have spent greater than 30 minutes on patient care today. Dr Snowden was available by phone for the evaluation of this patient. The time was used to review the medical records including relevant urine studies and Prescription history (MAPs), review of the available imaging, evaluation and examination of the patient, coordination of care with the medical staff and if applicable referring physicians, as well as creation of the medical record PQRS Narrative: Smoking Status Current every day smoker Home Medications: Ambulatory Orders Aspirin EC [Ecotrin Low Dose] 81 mg PO DAILY #30 tablet. 07/13/18 Atorvastatin [Lipitor] 80 mg PO HS #30 tab 07/13/18 Cyclobenzaprine [Flexeril] 5 mg PO HS PRN #30 tab 07/13/18 Ergocalciferol (Vitamin D2) [Vitamin D2] 50,000 unit PO Q7D #4 capsule 07/13/18 Gabapentin [Neurontin] 800 mg PO TID #45 tablet 07/13/18 Isosorbide Mononitrate ER [Imdur] 30 mg PO DAILY #30 tab.er.24h 07/13/18 Metoprolol Tartrate 25 mg PO DAILY #30 tablet 07/13/18 Multivitamin,Therapeutic [Thera] 1 tab PO DAILY #30 tablet 07/13/18 Nicotine 14Mg/24Hr Patch [Habitrol] 1 patch TRANSDERM DAILY #10 patch 07/13/18 Nitroglycerin Sl Tabs [Nitrostat] 0.4 mg SUBLINGUAL Q5M PRN #10 tab 07/13/18 Nystatin 100,000 Unit/gm Powd [Mycostatin Powder] 1 applic TOPICAL BID #1 applic 07/13/18 Omeprazole 20 mg PO DAILY #30 capsule.dr 07/13/18 QUEtiapine [SEROquel] 400 mg PO HS #30 tab 07/13/18 Sertraline [Zoloft] 100 mg PO DAILY #30 tab 07/13/18 buPROPion XL [Wellbutrin XL] 150 mg PO DAILY #30 tab.er.24h 07/13/18 raNITIdine HCL [Zantac] 150 mg PO HS #30 tablet 07/13/18 Controlled Substance Measures - Controlled Substance Measures Is patient prescribed a controlled substance at discharge?: Yes When asked, does pt state using other controlled substances?: Yes If prescribed controlled substance>3 days was MAPS reviewed?: Yes If Rx opioid, was Start Talking consent form obtained?: Yes If opioid is for acute pain is fill amount 7 days or less?: Yes Was information provided regarding opioid addiction?: Yes
== END ==
LOC: PNWHC3 13:24
PROVIDERS: ATTEND Specialist
DX: M51.36 Other intervertebral disc degeneration, lumbar region (principal); I10 Essential (primary) hypertension; F17.210 Nicotine dependence, cigarettes, uncomplicated; E78.2 Mixed hyperlipidemia; G47.09 Other insomnia; F41.0 Panic disorder [episodic paroxysmal anxiety]; G62.9 Polyneuropathy, unspecified; Z79.899 Other long term (current) drug therapy
CPT/HCPCS: 99211

== ENCOUNTER 2022-09-18 03:09 | Inpatient (IN) | payer MEDICAID, MEDICARE, OTHER ==
--- NOTE | 2022-09-18 03:38 | ED ---
Psych HPI - General Source: patient, RN notes reviewed Mode of arrival: ambulatory Limitations: no limitations <Paul Bull - Last Filed: 09/18/22 03:36> <Ghulam Trimble - Last Filed: 09/25/22 04:23> - General Chief Complaint: Psychiatric Symptoms Stated Complaint: DEPRESSION Time Seen by Provider: 09/18/22 03:32 - History of Present Illness Initial Comments: 62-year-old male presents emergency Department with chief complaint of depression, suicidal ideation. Patient states she's been having thoughts of harming himself he has not attempted to harm himself in any way. He does admit that he drinks alcohol on a regular basis states she's been trying to reach out to places but is not getting any help. He does admit to marijuana use. States that he started her mother himself in the past. Denies any homicidal ideation denies any physical complaints. (Paul Bull) - Related Data Home Medications Medication Instructions Recorded Confirmed HYDROcodone/APAP 5-325MG [[place] 1 tab PO BID PRN 09/18/22 09/18/22 5-325] Meloxicam [Mobic] 15 mg PO DAILY 09/18/22 09/18/22 Previous Rx's Medication Instructions Recorded ARIPiprazole [Abilify] 10 mg PO DAILY 30 Days #30 tab 09/20/22 Gabapentin [Neurontin] 800 mg PO TID 15 Days #45 tablet 09/20/22 Mirtazapine [Remeron] 15 mg PO HS 30 Days #30 tab 09/20/22 Multivitamins, Thera [Multivitamin 1 each PO DAILY 30 Days #30 tab 09/20/22 (formulary)] Nicotine 14Mg/24Hr Patch [Habitrol] 1 patch TRANSDERM DAILY 30 Days 09/20/22 #30 patch Thiamine [Vitamin B-1] 100 mg PO DAILY 30 Days #30 tab 09/20/22 Allergies Allergy/AdvReac Type Severity Reaction Status Date / Time No Known Allergies Allergy Verified 09/18/22 06:16 Review of Systems ROS Other: All systems not noted in ROS Statement are negative. <Paul Bull - Last Filed: 09/18/22 03:36> ROS Other: All systems not noted in ROS Statement are negative. <Ghulam Trimble - Last Filed: 09/25/22 04:23> ROS Statement: Those systems with pertinent positive or pertinent negative responses have been documented in the HPI. Past Medical History Past Medical History: Coronary Artery Disease (CAD), CVA/TIA, Hyperlipidemia, Myocardial Infarction (ID), Pneumonia Additional Past Medical History / Comment(s): pneumonia, closed head injury, neuropathy Last Myocardial Infarction Date:: unknown History of Any Multi-Drug Resistant Organisms: None Reported Past Surgical History: Heart Catheterization With Stent, Joint Replacement, Orthopedic Surgery Additional Past Surgical History / Comment(s): esophogeal surgery, left femur and left hip with rods, bilateral knee replacement Past Anesthesia/Blood Transfusion Reactions: No Reported Reaction Date of Last Stent Placement:: unknown Past Psychological History: Anxiety, Depression Smoking Status: Current every day smoker Past Alcohol Use History: Daily, Occasional Past Drug Use History: Marijuana <Paul Bull - Last Filed: 09/18/22 03:36> General Exam Limitations: no limitations General appearance: alert, in no apparent distress Head exam: Present: atraumatic, normocephalic, normal inspection Eye exam: Present: normal appearance, PERRL, EOMI. Absent: scleral icterus, conjunctival injection, periorbital swelling ENT exam: Present: normal exam, normal oropharynx, mucous membranes moist Neck exam: Present: normal inspection, full ROM. Absent: tenderness, meningismus, lymphadenopathy Respiratory exam: Present: normal lung sounds bilaterally. Absent: respiratory distress, wheezes, rales, rhonchi, stridor Cardiovascular Exam: Present: regular rate, normal rhythm, normal heart sounds. Absent: systolic murmur, diastolic murmur, rubs, gallop, clicks GI/Abdominal exam: Present: soft, normal bowel sounds. Absent: distended, tenderness, guarding, rebound, rigid Neurological exam: Present: alert, oriented X3 Psychiatric exam: Present: depressed Skin exam: Present: warm, dry, intact, normal color. Absent: rash <Paul Bull - Last Filed: 09/18/22 03:36> Course Vital Signs 09/18/22 03:13 Temperature 97.6 F Pulse Rate 79 Respiratory 18 Rate Blood Pressure 112/77 O2 Sat by Pulse 99 Oximetry Medical Decision Making - Lab Data Result diagrams: 09/19/22 07:55 09/19/22 07:55 <Ghulam Trimble - Last Filed: 09/25/22 04:23> - Medical Decision Making Was pt. sent in by a medical professional or institution (, [facility], [facility], urgent care, hospital, or assisted...) When possible be specific @ -[No] Did you speak to anyone other than the patient for history (EMS, parent, family, police, friend...)? What history was obtained from this source @ -[No] Did you review nursing and triage notes (agree or disagree)? Why? @ -[I reviewed and agree with nursing and triage notes] Were old charts reviewed (outside hosp., previous admission, EMS record, old EKG, old radiological studies, urgent care reports/EKG's, assisted records)? Report findings @ -[No old charts were reviewed] Differential Diagnosis (chest pain, altered mental status, abdominal pain women, abdominal pain men, vaginal bleeding, weakness, fever, dyspnea, syncope, headache, dizziness, GI bleed, back pain, seizure, CVA, palpatations, mental health, musculoskeletal)? @ -[Differential Mental Health Depression, anxiety, bipolar, psychosis, schizophrenia, borderline personality, situational depression, adjustment disorder, behavioral disorder, brain tumor, malingering, substance abuse, encephalopathy, medication reaction, dementia, hypothyroidism, degenerative neurologic disorder, lupus.... This is not meant to be all-inclusive list EKG interpreted by me (3pts min.). @ -[ X-rays interpreted by me (1pt min.). @ -[None done] CT interpreted by me (1pt min.). @ -[None done] U/S interpreted by me (1pt. min.). @ -[None done] What testing was considered but not performed or refused? (CT, X-rays, U/S, labs)? Why? @ -[None] What meds were considered but not given or refused? Why? @ -[None] Did you discuss the management of the patient with other professionals (professionals i.e. [facility]GAN Almeida, GEOCHEMIST, lab, RT, psych nurse, social welfare clerk, cardiovascular physician assistant, teacher, dog control officer, case maker)? Give summary @ -[Yes, EPS personnel Was smoking cessation discussed for >3mins.? @ -[No] Was critical care preformed (if so, how long)? @ -[No] Were there social determinants of health that impacted care today? How? (Homelessness, low income, unemployed, alcoholism, drug addiction, transportation, low edu. Level, literacy, decrease access to med. care, alf, rehab)? @ -[No] Was there de-escalation of care discussed even if they declined (Discuss DNR or withdrawal of care, Hospice)? DNR status @ -[No] What co-morbidities impacted this encounter? (DM, HTN, Smoking, COPD, CAD, Cancer, CVA, ARF, Chemo, Hep., AIDS, mental health diagnosis, sleep apnea, morbid obesity)? @ -[None] Was patient admitted / discharged? Hospital course, mention meds given and route, prescriptions, significant lab abnormalities, going to OR and other pertinent info. @ -[Admitted Undiagnosed new problem with uncertain prognosis? @ -[No] Drug Therapy requiring intensive monitoring for toxicity (Heparin, Nitro, Insulin, Cardizem)? @ -[No] Were any procedures done? @ -[No] Diagnosis/symptom? @ -[Mood disorder with suicidal ideation Acute, or Chronic, or Acute on Chronic? @ -[Acute Uncomplicated (without systemic symptoms) or Complicated (systemic symptoms)? @ -[default] Side effects of treatment? @ -[No] Exacerbation, Progression, or Severe Exacerbation? @ -[No] Poses a threat to life or bodily function? How? (Chest pain, [place], ID, pneumonia, PE, COPD, DKA, ARF, appy, cholecystitis, CVA, Diverticulitis, Homicidal, Suicidal, threat to staff... and all critical care pts) @ -[Yes, untreated suicidal ideation mainly to suicide attempt and (Ghulam Trimble) - Lab Data Lab Results 09/18/22 Range/Units 03:40 Coronavirus (PCR) Not Detected (Not Detectd) Disposition <Paul Bull - Last Filed: 09/18/22 03:36> Is patient prescribed a controlled substance at d/c from ED?: No <hGulam Trimble - Last Filed: 09/25/22 04:23> Clinical Impression: Suicidal ideation Disposition: ADMITTED IP TO THIS HOSP Condition: Stable
[2022-09-18] MEDS ORDERED: haloperidoL 5 MG TAB PO PRN (06:08)
[2022-09-18] MEDS ORDERED: HALOPERIDOL LACTATE 5 MG/ML 1 ML VIAL IM PRN (06:08)
[2022-09-18] MEDS ORDERED: MAG HYDROX/AL HYDROX/SIMETH 30 ML CUP PO PRN (06:08)
[2022-09-18] MEDS ORDERED: ACETAMINOPHEN TAB 325 MG TAB PO PRN (06:08)
[2022-09-18] MEDS ORDERED: MAGNESIUM HYDROXIDE 2,400 MG/10 ML CUP PO PRN (06:08)
[2022-09-18] MEDS ORDERED: diphenhydrAMINE 25 MG CAP PO PRN (06:14)
[2022-09-18] MEDS ORDERED: diphenhydrAMINE 50 MG/ML 1 ML VIAL IM PRN (06:14)
[2022-09-18] MEDS ORDERED: ARIPiprazole 5 MG TAB PO STA (10:01)
[2022-09-18] MEDS: NICOTINE 14MG/24HR PATCH TRANSDERM SCH (10:41)
[2022-09-18] MEDS: HYDROcodone/APAP 5-325MG 1 EACH TAB PO PRN ×2 (10:43→20:24)
--- NOTE | 2022-09-18 11:05 | P.HP ---
Psychiatric H&P - . H&P Date: 09/18/22 History & Physical: Allergies Allergy/AdvReac Type Severity Reaction Status Date / Time No Known Allergies Allergy Verified 09/18/22 06:16 Vital Signs Temp 97.9 F 09/18/22 07:04 Pulse 69 09/18/22 07:04 Resp 14 09/18/22 07:04 BP 112/66 09/18/22 07:04 Pulse Ox 98 09/18/22 07:04 FiO2 Intake & Output 09/17/22 09/18/22 09/18/22 18:59 06:59 18:59 Weight 73.482 kg 69.853 kg Laboratory Last Values Coronavirus (PCR) Not Detected (Not Detectd) 09/18/22 03:40 09/18/22 11:05 IDENTIFYING DATA: Patient is a 62-year-old single, on disability, male with significant history of depression who presented to our hospital on 09/18/2022, complaining of suicidal ideation with plan to "step in front of a train or jump off a bridge." HPI: Patient presented to the hospital on 09/18/2022 with a chief complaint of depression and suicidal ideation with a plan to step in front of a train. He was subsequently admitted to the psychiatric unit and signed voluntarily. He does report to this provider that he has been experiencing depression for the past few months and suicidal ideation over the past few weeks. He is unable to idenfy any acute stressors, but states that he and his long-time girlfriend broke up 7 months ago. He endorses low mood, anhedonia, low energy, poor sleep, decreased appetite, and suicidal ideation. He reports no prior attempts at suicide. Further worsening his depression, is the patient's alcohol use. He reports drinking 6-12 beers per day. He does admit to a history of withdrawal tremors but denies any history of seizure or DTs. The patient denies any homicidal ideation, intention, and/or plan. He reports no significant history of bipolar disorder and denies any periods of excessive energy, grandiosity, mood lability, or increased goal directed activity. The patient does endorse auditory hallucinations. He reports he hears a male voice that is often telling him he is "worthless." He states the voice also tells him, "The world [id number] better off if you're not around." He denies any visual hallucinations. He reports no paranoia or other delusions. He is agreeable for psychiatric admission. PAST PSYCHIATRIC HISTORY: Patient states that he has been previously diagnosed with depression. He reports being previously prescribed Zoloft. He denies any history of inpatient admissions. He reports that he is seeing a psychiatrist at the [facility]. He reports no prior attempts at suicide in the past. PMH: Past Medical History: Coronary Artery Disease (CAD), CVA/TIA, Hyperlipidemia, Myocardial Infarction ([place]), Pneumonia Additional Past Medical History / Comment(s): pneumonia, closed head injury, neuropathy Last Myocardial Infarction Date:: unknown History of Any Multi-Drug Resistant Organisms: None Reported Past Surgical History: Heart Catheterization With Stent, Joint Replacement, Orthopedic Surgery Additional Past Surgical History / Comment(s): esophogeal surgery, left femur and left hip with rods, bilateral knee replacement Past Anesthesia/Blood Transfusion Reactions: No Reported Reaction Date of Last Stent Placement:: unknown Past Psychological History: Anxiety, Depression Smoking Status: Current every day smoker Past Alcohol Use History: Daily, Occasional Past Drug Use History: Marijuana ALLERGIES: NO KNOWN DRUG ALLERGIES CHEMICAL DEPENDENCY HISTORY: The patient admits to heavy alcohol use. He reports that he has been drinking between 6-12 beers per day. He does this report that he has a pending charge for drunk driving. He reports marijuana use every other day. He denies any illicit drug use. He reports half pack per day of tobacco use. He does report that he went to rehab in the past for alcohol use however states that it has been many years. FAMILY PSYCHIATRIC/SUBSTANCE USE HISTORY: The patient reports that both his sister suffered from depression. SOCIAL HISTORY: Patient was born and raised in [place], [place]. He is single, never , but has 2 adult children. He currently lives with a friend at a mobile home. He is on disability. He completed only up to the ninth grade. He states that he is [employer]. Aside from his current charge of drunk driving, he denies any history of legal issues or concerns. MENTAL STATUS EXAM: General Appearance: Patient appears to be stated age is alert, directable, and attempts to cooperate. Patient appears to have slightly disheveled hygiene and grooming. Behavior: Patient is seated without any agitated behavior. Eye contact is appropriate. Speech: Patient's speech is fluent and nonpressured. Mood/Affect: Patient reports their mood is depressed, affect is congruent and constricted. Suicidality/Homicidality: Patient denies having any homicidal ideation, intention, and/or plan. He reports suicidal ideation. Perceptions: Patient denies any visual hallucinations her, the patient reports mood congruent auditory hallucinations. Though content/process: There is no evidence of any delusional thought content and thought process is linear and goal-directed. Memory and concentration: AOX3, grossly intact for the purposes of this session. Can spell "WORLD" backwards Judgment and insight: Fair STRENGTHS/WEAKNESSES: Strength is that the patient appears to have good insight and judgment. Weakness that the patient engages in heavy alcohol use. INTELLECT: average IMPRESSIONS: Major depressive disorder, recurrent, severe, with mood congruent psychotic features Alcohol use disorder Nicotine dependence Cannabis abuse PLAN: -Patient is admitted under voluntary status to MHU for stabilization of psychiatric symptoms and safety. Patient signed adult voluntary form and medication consent and is placed in patient's chart. -Medications : Will start patient on Remeron 7.5 mg by mouth at bedtime for depression/insomnia/appetite stimulation Abilify 5 mg by mouth daily for mood congruent psychotic features Continue home medications of gabapentin -Haldol PRN for agitation/aggression -Started thiamine, MVM for etoh use -Patient is currently not reporting any withdrawal symptoms. -Patient was counselled on substance abuse and desired to cut back on use -Patient was informed of the risks, benefits and side effects of the medication and patient verbally consented to taking the medications. Patient signed med consent form and was placed in chart. -Internal Medicine consult to perform medical evaluation and physical. -NRT - nicotine patch -SW on board for discharge planning. Encourage patient to participate in groups to work on coping skills. 09/18/22 11:05
--- NOTE | 2022-09-18 13:12 | P.MDCNMH ---
History of Present Illness H&P Date: 09/18/22 History of present illness; patient is 62-year-old gentleman with past medical significant for hyperlipidemia, depression who presented to the ER because of worsening depression. Patient stated that he has been having thoughts of hurting himself. Patient stated that he was planning to jump in front of the train. Patient denies any auditory or visual hallucinations. Patient denies any homicidal thoughts. Patient states that he used to take Eliquis in the past but his slabber took him off that couple of years ago. Patient stated that he has stents in his heart but does not any medications. Patient denies any history of high blood pressure, diabetes. Patient denies any chest chest pain or shortness of breath. Denies any lightheadedness or dizziness. Patient was admitted to inpatient psych for further evaluation and treatment REVIEW OF SYSTEMS: CONSTITUTIONAL: No fever, no malaise, no fatigue. HEENT: No recent visual problems or hearing problems. Denied any sore throat. CARDIOVASCULAR: No chest pain, orthopnea, PND, no palpitations, no syncope. PULMONARY: No shortness of breath, no cough, no hemoptysis. GASTROINTESTINAL: No diarrhea, no nausea, no vomiting, no abdominal pain. NEUROLOGICAL: No headaches, no weakness, no numbness. HEMATOLOGICAL: Denies any bleeding or petechiae. GENITOURINARY: Denies any burning micturition, frequency, or urgency. MUSCULOSKELETAL/RHEUMATOLOGICAL: Denies any joint pain, swelling, or any muscle pain. ENDOCRINE: Denies any polyuria or polydipsia. The rest of the 14-point review of systems is negative. PHYSICAL EXAMINATION: GENERAL: The patient is alert and oriented x3, not in any acute distress. Well developed, well nourished. HEENT: Pupils are round and equally reacting to light. EOMI. No scleral icterus. No conjunctival pallor. Normocephalic, atraumatic. No pharyngeal erythema. No thyromegaly. CARDIOVASCULAR: S1 and S2 present. No murmurs, rubs, or gallops. PULMONARY: Chest is clear to auscultation, no wheezing or crackles. ABDOMEN: Soft, nontender, nondistended, normoactive bowel sounds. No palpable organomegaly. MUSCULOSKELETAL: No joint swelling or deformity. EXTREMITIES: No cyanosis, clubbing, or pedal edema. NEUROLOGICAL: Gross neurological examination did not reveal any focal deficits. SKIN: No rashes. Assessment and plan Severe depression Suicidal thoughts Alcohol abuse History of coronary artery disease Plan; Suicide precautions Elopement precautions Continue psych meds per psychiatry team Patient med rec reviewed, when questioned about Eliquis he stated that he was taken off it. Patient denies taking any cardiac medications. Patient needs to follow-up outpatient with PCP, stated he recently moved to [facility], needs to follow up with a PCP here. Past Medical History Past Medical History: Coronary Artery Disease (CAD), CVA/TIA, Hyperlipidemia, Myocardial Infarction ([place]), Pneumonia Additional Past Medical History / Comment(s): pneumonia, closed head injury, neuropathy Last Myocardial Infarction Date:: unknown History of Any Multi-Drug Resistant Organisms: None Reported Past Surgical History: Heart Catheterization With Stent, Joint Replacement, Orthopedic Surgery Additional Past Surgical History / Comment(s): esophogeal surgery, left femur and left hip with rods, bilateral knee replacement Past Anesthesia/Blood Transfusion Reactions: No Reported Reaction Date of Last Stent Placement:: unknown Past Psychological History: Anxiety, Depression Smoking Status: Current every day smoker Past Alcohol Use History: Daily, Occasional Past Drug Use History: Marijuana Medications and Allergies Home Medications Medication Instructions Recorded Confirmed Type Gabapentin [Neurontin] 800 mg PO TID #45 tablet 07/13/18 09/18/22 Rx HYDROcodone/APAP 5-325MG [[place] 1 tab PO BID PRN 09/18/22 09/18/22 History 5-325] LORazepam 0.5 mg PO DAILY 09/18/22 09/18/22 History Meloxicam [Mobic] 15 mg PO DAILY 09/18/22 09/18/22 History QUEtiapine [SEROquel] 100 mg PO HS 09/18/22 09/18/22 History Sertraline HCl [Zoloft] 50 mg PO DAILY 09/18/22 09/18/22 History busPIRone HCL [Buspar] 30 mg PO BID 09/18/22 09/18/22 History traZODone HCL [Desyrel] 100 mg PO HS 09/18/22 09/18/22 History Allergies Allergy/AdvReac Type Severity Reaction Status Date / Time No Known Allergies Allergy Verified 09/18/22 06:16 Physical Exam Vitals: Vital Signs Temp Pulse Pulse Resp BP BP Pulse Ox 09/18/22 07:04 97.9 F 69 14 112/66 98 09/18/22 03:13 97.6 F 79 18 112/77 99 Intake and Output 09/17/22 09/18/22 09/18/22 22:59 06:59 14:59 Other: Weight 73.482 kg 69.853 kg Cranial Nerve Examination - Cranial Nerves Cranial Nerve II- Optic: Intact (Cranial nerve II through XII intact) Cranial Nerve III- Oculomotor: Intact Cranial Nerve IV- Trochlear: Intact Cranial Nerve V- Trigeminal: Intact Cranial Nerve - Abducens: Intact Cranial Nerve VII- Facial: Intact Cranial Nerve VIII- Auditory: Intact Cranial Nerve IX- Glossopharyngeal: Intact Cranial Nerve X- Vagus: Intact Cranial Nerve XI- Accessory: Intact Cranial Nerve XII- Hypoglossal: Intact
[2022-09-18 13:55] VITALS: BMI 24.8
[2022-09-18] MEDS: GABAPENTIN 400 MG CAP PO SCH ×2 (16:19→20:23)
[2022-09-18] MEDS ORDERED: MIRTAZAPINE 15 MG TAB PO SCH (21:00)
[2022-09-19 06:47] VITALS: RESP 16
[2022-09-19] MEDS: GABAPENTIN 400 MG CAP PO SCH ×3 (08:32→20:32)
[2022-09-19] MEDS: MULTIVITAMINS, THERA 1 EACH TAB PO SCH (08:33)
[2022-09-19] MEDS: THIAMINE 100 MG TAB PO SCH (08:33)
[2022-09-19] MEDS: ARIPiprazole 10 MG TAB PO SCH (08:33)
[2022-09-19] MEDS: NICOTINE 14MG/24HR PATCH TRANSDERM SCH (08:33)
[2022-09-19] MEDS: HYDROcodone/APAP 5-325MG 1 EACH TAB PO PRN ×2 (08:34→16:15)
[2022-09-19 08:47] LABS: Basophils % (A) 0 %; Eosinophils # (A) 0.1 k/uL (0-0.7); Eosinophils % (A) 1 %; HCT 47.3 % (39.0-53.0); HGB 14.9 gm/dL (13.0-17.5); Lymphocytes # (A) 1.5 k/uL (1.0-4.8); Lymphocytes % (A) 26 %; MCH 30.6 pg (25.0-35.0); MCHC 31.6 g/dL (31.0-37.0); MCV 97.1 fL (80.0-100.0); Mean Platelet Volume 8.3; Monocytes # (A) 0.4 k/uL (0-1.0); Monocytes % (A) 6 %; Neutrophils % (A) 66 %; Platelet Count 220 k/uL (150-450); RBC 4.87 m/uL (4.30-5.90); RDW 13.9 % (11.5-15.5)
[2022-09-19 09:05] LABS: ALT 22 U/L (4-49); AST 31 U/L (17-59); African American GFR (CKD) >90 (>60 ml/min/1.73 sqM); Albumin 2.8 g/dL (3.5-5.0); Alkaline Phosphatase 149 U/L (38-126); Anion Gap 6 mmol/L; Bilirubin, Delta 0.2 mg/dL (0.0-0.2); Bilirubin,Unconjugated 0.3 mg/dL (0.0-1.1); Blood Urea Nitrogen 5 mg/dL (9-20); Calcium 8.7 mg/dL (8.4-10.2); Carbon Dioxide 20 mmol/L (22-30); Chloride 110 mmol/L (98-107); Glucose 90 mg/dL (74-99); Non-African American GFR(CKD) >90 (>60 ml/min/1.73 sqM); Potassium 4.1 mmol/L (3.5-5.1); Sodium 136 mmol/L (137-145); Total Bilirubin 0.5 mg/dL (0.2-1.3)
[2022-09-19] MEDS: LORazepam 1 MG TAB PO PRN ×2 (10:30→20:11)
--- NOTE | 2022-09-19 11:06 | P.PN ---
Progress Note - Text Progress Note Date: 09/19/22 Interval History: Patient was seen in the common room and was directable and agreeable to speak with field underwriter in the office. At this time, the patient continues to endorse suicidal ideation and low mood. He does not mention and intention or plan. He states he feels like he is in a hole that he cannot get out of no matter how much he tries. He states he continues to have very poor appetite and difficulty with sleep. He reports that his anxiety is elevated. We discussed at length that he has been chronically prescribed narcotics and benzodiazepines and how these contribute to worsening mood and anxiety overall. He expresses understanding. He reports no auditory or visual hallucinations. He denies any paranoia or other delusions. Mental Status Exam: General Appearance: Patient appears to be stated age is alert, directable, and attempts to cooperate. Behavior: Patient is seated without any agitated behavior. Eye contact is appropriate. Ambulates with a wheelchair Speech: Patient's speech is fluent and nonpressured. Mood/Affect: Patient reports their mood is depressed, affect is congruent and constricted. Suicidality/Homicidality: Patient denies having any homicidal ideation, intention, and/or plan. He reports suicidal ideation. Perceptions: Patient denies any visual hallucinations her, the patient reports mood congruent auditory hallucinations. Though content/process: There is no evidence of any delusional thought content and thought process is linear and goal-directed. Memory and concentration: AOX3, grossly intact for the purposes of this session. Can spell "WORLD" backwards Judgment and insight: Fair Vital Signs Temp 97.6 F 09/19/22 06:46 Pulse 77 09/19/22 06:46 Resp 16 09/19/22 06:46 BP 130/68 09/19/22 06:46 Pulse Ox 97 09/19/22 06:46 FiO2 Intake & Output 09/18/22 09/19/22 09/19/22 18:59 06:59 18:59 Weight 69.853 kg Laboratory Results WBC 6.0 k/uL (3.8-10.6) 09/19/22 07:55 RBC 4.87 m/uL (4.30-5.90) 09/19/22 07:55 Hgb 14.9 gm/dL (13.0-17.5) 09/19/22 07:55 Hct 47.3 % (39.0-53.0) 09/19/22 07:55 MCV 97.1 fL (80.0-100.0) 09/19/22 07:55 MCH 30.6 pg (25.0-35.0) 09/19/22 07:55 MCHC 31.6 g/dL (31.0-37.0) 09/19/22 07:55 RDW 13.9 % (11.5-15.5) 09/19/22 07:55 Plt Count 220 k/uL (150-450) 09/19/22 07:55 MPV 8.3 09/19/22 07:55 Neutrophils % 66 % 09/19/22 07:55 Lymphocytes % 26 % 09/19/22 07:55 Monocytes % 6 % 09/19/22 07:55 Eosinophils % 1 % 09/19/22 07:55 Basophils % 0 % 09/19/22 07:55 Neutrophils # 4.0 k/uL (1.3-7.7) 09/19/22 07:55 Lymphocytes # 1.5 k/uL (1.0-4.8) 09/19/22 07:55 Monocytes # 0.4 k/uL (0-1.0) 09/19/22 07:55 Eosinophils # 0.1 k/uL (0-0.7) 09/19/22 07:55 Basophils # 0.0 k/uL (0-0.2) 09/19/22 07:55 Sodium 136 mmol/L (137-145) L 09/19/22 07:55 Potassium 4.1 mmol/L (3.5-5.1) 09/19/22 07:55 Chloride 110 mmol/L (98-107) H 09/19/22 07:55 Carbon Dioxide 20 mmol/L (22-30) L 09/19/22 07:55 Anion Gap 6 mmol/L 09/19/22 07:55 BUN 5 mg/dL (9-20) L 09/19/22 07:55 Creatinine 0.59 mg/dL (0.66-1.25) L 09/19/22 07:55 Est GFR (CKD-EPI)AfAm >90 (>60 ml/min/1.73 sqM) 09/19/22 07:55 Est GFR (CKD-EPI)NonAf >90 (>60 ml/min/1.73 sqM) 09/19/22 07:55 Glucose 90 mg/dL (74-99) 09/19/22 07:55 Calcium 8.7 mg/dL (8.4-10.2) 09/19/22 07:55 Total Bilirubin 0.5 mg/dL (0.2-1.3) 09/19/22 07:55 Conjugated Bilirubin 0.0 mg/dL (0.0-0.3) 09/19/22 07:55 Unconjugated Bilirubin 0.3 mg/dL (0.0-1.1) 09/19/22 07:55 Delta Bilirubin 0.2 mg/dL (0.0-0.2) 09/19/22 07:55 AST 31 U/L (17-59) 09/19/22 07:55 ALT 22 U/L (4-49) 09/19/22 07:55 Alkaline Phosphatase 149 U/L (38-126) H 09/19/22 07:55 Total Protein 5.0 g/dL (6.3-8.2) L 09/19/22 07:55 Albumin 2.8 g/dL (3.5-5.0) L 09/19/22 07:55 TSH 1.890 mIU/L (0.465-4.680) 09/19/22 07:55 Coronavirus (PCR) Not Detected (Not Detectd) 09/18/22 03:40 Assessment Major depressive disorder, recurrent, severe, with mood congruent psychotic features Alcohol use disorder Nicotine dependence Cannabis abuse Opiate dependence Benzodiazepine dependence. Plan: -Patient continues to meet criteria for inpatient psychiatric admission for symptom stabilization and safety. Patient has signed adult voluntary form and medication consent and was placed in patient's chart. -Medications: Remeron 15 mg by mouth at bedtime for depression/insomnia/appetite stimulation Abilify 10 mg by mouth daily for mood congruent psychotic features -MVM, thiamin -When necessary Ativan and Haldol for agitation/aggression. -NRT - nicotine patch -SW on board for discharge planning. Encouraged the patient to participate in milieu.
[2022-09-19 16:24] LABS: Chol/HDL Ratio 2.52 Ratio; LDL Cholesterol,Calculated 102.1 mg/dL (0.0-131.0)
[2022-09-19 16:57] LABS: Appearance,Urine Clear (Clear); Bilirubin,Urine Negative (Negative); Blood,Urine Negative (Negative); Color,Urine Yellow; Glucose,Urine (UA) Negative (Negative); Ketones,Urine Negative (Negative); Leukocyte Esterase,Urine Negative (Negative); Nitrite,Urine Negative (Negative); Protein,Urine Negative (Negative); Specific Gravity,Urine 1.014 (1.001-1.035); Urobilinogen,Urine <2.0 mg/dL (<2.0)
[2022-09-19 17:34] LABS: Amphetamine Screen,Urine Not Detected (NotDetected); Barbiturate Screen,Urine Not Detected (NotDetected); Benzodiazepines Screen,Urine Detected (NotDetected); Cocaine Screen,Urine Not Detected (NotDetected); Methadone Screen, Urine Not Detected (NotDetected); Opiate Screen,Urine Detected (NotDetected); Oxycodone Screen, Urine Not Detected (NotDetected); Phencyclidine Screen,Urine Not Detected (NotDetected); Tricyclic Antidepressant,Urine Not Detected (NotDetected); Urn Cannabinoid Scrn Detected (NotDetected)
[2022-09-19] MEDS ORDERED: MIRTAZAPINE 15 MG TAB PO SCH (21:00)
[2022-09-20 06:51] VITALS: BP 125/59; PULSE 71; TEMP 98.4
[2022-09-20] MEDS: NICOTINE 14MG/24HR PATCH TRANSDERM SCH (08:40)
[2022-09-20] MEDS: GABAPENTIN 400 MG CAP PO SCH (08:41)
[2022-09-20] MEDS: THIAMINE 100 MG TAB PO SCH (08:42)
[2022-09-20] MEDS: ARIPiprazole 10 MG TAB PO SCH (08:42)
[2022-09-20] MEDS: MULTIVITAMINS, THERA 1 EACH TAB PO SCH (08:42)
[2022-09-20] MEDS: HYDROcodone/APAP 5-325MG 1 EACH TAB PO PRN (08:42)
--- NOTE | 2022-09-20 11:43 | P.DS ---
Providers Date of admission: 09/18/22 06:03 Expected date of discharge: 09/20/22 Attending physician: Aly Boone MD Consults: 09/18/22 06:08 Consult Physician Routine Consulting Provider: [facility] Hospitalists Consult Reason/Comments: For H & P for Medical Follow Up Do you want consulting provider notified?: Yes, Notify in am Primary care physician: Froylan Hawkins - Discharge Diagnosis(es) (1) Major depressive disorder, recurrent, severe with psychotic features Current Visit: Yes Status: Acute Priority: High (2) Alcohol use disorder Current Visit: Yes Status: Chronic Priority: Medium (3) Nicotine dependence Current Visit: Yes Status: Chronic Priority: Medium (4) Cannabis abuse Current Visit: Yes Status: Chronic Priority: Medium Hospital Course: Admission HPI: Patient is a 62-year-old single, on disability, male with significant history of depression who presented to our hospital on 09/18/2022, complaining of suicidal ideation with plan to "step in front of a train or jump off a bridge." Patient presented to the hospital on 09/18/2022 with a chief complaint of depression and suicidal ideation with a plan to step in front of a train. He was subsequently admitted to the psychiatric unit and signed voluntarily. He does report to this provider that he has been experiencing depression for the past few months and suicidal ideation over the past few weeks. He is unable to idenfy any acute stressors, but states that he and his long-time girlfriend broke up 7 months ago. He endorses low mood, anhedonia, low energy, poor sleep, decreased appetite, and suicidal ideation. He reports no prior attempts at suicide. Further worsening his depression, is the patient's alcohol use. He reports drinking 6-12 beers per day. He does admit to a history of withdrawal tremors but denies any history of seizure or DTs. The patient denies any homicidal ideation, intention, and/or plan. He reports no significant history of bipolar disorder and denies any periods of excessive energy, grandiosity, mood lability, or increased goal directed activity. The patient does endorse auditory hallucinations. He reports he hears a male voice that is often telling him he is "worthless." He states the voice also tells him, "The world [id number] be better off if you're not around." He denies any visual hallucinations. He reports no paranoia or other delusions. He is agreeable for psychiatric admission. Patient states that he has been previously diagnosed with depression. He reports being previously prescribed Zoloft. He denies any history of inpatient admissions. He reports that he is seeing a psychiatrist at the [facility]. He reports no prior attempts at suicide in the past. Hospital course: Upon admission to the unit patient was initially presenting as depressed, suicidal, and endorsing congruent auditory hallucinations in the context of alcohol use. Patient was however directable and agreeable to commence treatment. Patient got along well with other patients on the unit and followed unit protocol. Patient was compliant with the medications and denied any side effects throughout hospital course. Patient was started on a regimen of Remeron and Abilify for management of depression and psychotic features. Patient spoke of his stressors and engaged in therapy both group and individual. Patient was also seen by medical team for history and physical exam. Over the course of the hospitalization, the patient displayed significant improvement in regards to his target symptoms of depression including improved appetite, improved sleep, decreased auditory hallucinations, and increased energy. He became more future and goal oriented and developed better insight and judgment. He was much more motivated to quit alcohol. On the day of discharge, the patient is not reporting any suicidal or homicidal ideation, intention, and/or plan. He is not reporting any auditory or visual hallucinations. He reports no access to firearms or other weapons. Patient denied any paranoia and did not endorse any delusions. Patient does have a significant history of substance abuse however was counseled on abstaining from all substances including tobacco, alcohol, marijuana, and all illicit drugs. Patient reports that he is interested in going to rehab shortly after discharge. Patient was also counseled on the medications and need for regular compliance and was encouraged to follow-up with their outpatient appointment for mental health and also for primary care. As the patient no longer met criteria for continued inpatient psychiatric hospitalization and reported no significant medical issues or concerns, he was subsequently discharged. Mental status exam: General Appearance: Patient appears to be stated age is alert, pleasant, and cooperative. Patient is in no acute distress and has fair hygiene and grooming Behavior: Patient is calmly seated without any agitated behavior. Ambulates via wheelchair. Slow antalgic gait secondary to arthritis. Speech: Patient's speech is fluent and nonpressured. Mood/Affect: Patient reports their mood is "much better", affect is congruent and euthymic to bright. Suicidality/Homicidality: Patient denies having any suicidal or homicidal ideation intent or plan. Perceptions: Patient denies any auditory or visual hallucinations. Though content/process: There is no evidence of any delusional thought content and thought process is linear and goal-directed. Patient is future oriented. Memory and concentration: AOX3, grossly intact for the purposes of this session. Can spell "WORLD" backwards correctly. Judgment and insight: Improved with guarded prognosis Impression: Major depressive disorder, recurrent, severe, with mood congruent psychotic features Alcohol use disorder Nicotine dependence Cannabis abuse Plan: -Continue with discharge today as patient has improved and stabilized psychiatrically and is not currently an imminent threat to himself and/or others. No remain at chronically elevated risk for suicide and self-harm due to his age, race, and gender demographic as well as his heavy alcohol use. -Continue medications: Abilify 10 mg by mouth daily for mood augmentation Remeron 15 mg by mouth at bedtime for depression/appetite stimulation Gabapentin 800 mg by mouth 3 times a day for neuropathy and for off label use f or anxiety Habitrol patches for nicotine cessation. -Patient was counseled on the need for medication compliance and appropriate follow-up at mental health and also primary care for medical issues. Patient verbalized understanding and agreed. -Social work to arrange for and conduct family meeting to ensure safety upon discharge and answer any questions/concerns. Social work also [facility] for [facility] care along with follow up with primary care provider. -Patient counseled on abstaining from recreational drugs and marijuana and alcohol. Was informed/educated on the adverse effects on their physical and mental health. Patient verbally agreed and understood. Patient plans to go to rehab in the near future. -Patient was instructed to return to the hospital or seek immediate medical care if their psychiatric or medical symptoms do worsen or reoccur. -Psychoeducation and supportive therapy provided to patient. Risks and benefits of pharmacological treatment versus the risks and benefits of nontreatment weight and discussed. Informed consent discussion held. Common side effects of psychotropics discussed such as, but not limited to headache, GI disturbance, sexual dysfunction, movement disorders, sedation, and orthostatic hypotension. Life threatening and blackbox warnings of prescribed medications also discussed. Potential risks of operating a vehicle or heavy machinery discussed with patient at length. Advised on importance of compliance and a reliable and responsible manner. Patient advised to review FDA consumer labeling of all medications prior to taking. Patient verbalized understanding of potential risks, and agrees with current treatment plan. Patient advised to medically contact physician/emergency personnel if any acute changes in condition occur. Vital Signs Temp 98.4 F 09/20/22 06:00 Pulse 71 09/20/22 06:00 Resp 16 09/20/22 06:00 BP 125/59 09/20/22 06:00 Pulse Ox 94 L 09/20/22 06:00 FiO2 Laboratory Results WBC 6.0 k/uL (3.8-10.6) 09/19/22 07:55 RBC 4.87 m/uL (4.30-5.90) 09/19/22 07:55 Hgb 14.9 gm/dL (13.0-17.5) 09/19/22 07:55 Hct 47.3 % (39.0-53.0) 09/19/22 07:55 MCV 97.1 fL (80.0-100.0) 09/19/22 07:55 MCH 30.6 pg (25.0-35.0) 09/19/22 07:55 MCHC 31.6 g/dL (31.0-37.0) 09/19/22 07:55 RDW 13.9 % (11.5-15.5) 09/19/22 07:55 Plt Count 220 k/uL (150-450) 09/19/22 07:55 MPV 8.3 09/19/22 07:55 Neutrophils % 66 % 09/19/22 07:55 Lymphocytes % 26 % 09/19/22 07:55 Monocytes % 6 % 09/19/22 07:55 Eosinophils % 1 % 09/19/22 07:55 Basophils % 0 % 09/19/22 07:55 Neutrophils # 4.0 k/uL (1.3-7.7) 09/19/22 07:55 Lymphocytes # 1.5 k/uL (1.0-4.8) 09/19/22 07:55 Monocytes # 0.4 k/uL (0-1.0) 09/19/22 07:55 Eosinophils # 0.1 k/uL (0-0.7) 09/19/22 07:55 Basophils # 0.0 k/uL (0-0.2) 09/19/22 07:55 Sodium 136 mmol/L (137-145) L 09/19/22 07:55 Potassium 4.1 mmol/L (3.5-5.1) 09/19/22 07:55 Chloride 110 mmol/L (98-107) H 09/19/22 07:55 Carbon Dioxide 20 mmol/L (22-30) L 09/19/22 07:55 Anion Gap 6 mmol/L 09/19/22 07:55 BUN 5 mg/dL (9-20) L 09/19/22 07:55 Creatinine 0.59 mg/dL (0.66-1.25) L 09/19/22 07:55 Est GFR (CKD-EPI)AfAm >90 (>60 ml/min/1.73 sqM) 09/19/22 07:55 Est GFR (CKD-EPI)NonAf >90 (>60 ml/min/1.73 sqM) 09/19/22 07:55 Glucose 90 mg/dL (74-99) 09/19/22 07:[address] Glu mg/dL 95 09/19/22 07:55 Hemoglobin A1c 4.9 % (0.0-6.0) 09/19/22 07:55 Calcium 8.7 mg/dL (8.4-10.2) 09/19/22 07:55 Total Bilirubin 0.5 mg/dL (0.2-1.3) 09/19/22 07:55 Conjugated Bilirubin 0.0 mg/dL (0.0-0.3) 09/19/22 07:55 Unconjugated Bilirubin 0.3 mg/dL (0.0-1.1) 09/19/22 07:55 Delta Bilirubin 0.2 mg/dL (0.0-0.2) 09/19/22 07:55 AST 31 U/L (17-59) 09/19/22 07:55 ALT 22 U/L (4-49) 09/19/22 07:55 Alkaline Phosphatase 149 U/L (38-126) H 09/19/22 07:55 Total Protein 5.0 g/dL (6.3-8.2) L 09/19/22 07:55 Albumin 2.8 g/dL (3.5-5.0) L 09/19/22 07:55 Triglycerides 104.00 mg/dL (0.00-149.00) 09/19/22 07:55 Cholesterol 204.00 mg/dL (0.00-200.00) H 09/19/22 07:55 LDL Cholesterol, Calc 102.1 mg/dL (0.0-131.0) 09/19/22 07:55 VLDL Cholesterol, Calc 20.80 mg/dL (5.00-40.00) 09/19/22 07:55 HDL Cholesterol 81.10 mg/dL (40.00-60.00) H 09/19/22 07:55 Cholesterol/HDL Ratio 2.52 Ratio 09/19/22 07:55 TSH 1.890 mIU/L (0.465-4.680) 09/19/22 07:55 Urine Color Yellow 09/19/22 16:21 Urine Appearance Clear (Clear) 09/19/22 16:21 Urine pH 6.0 (5.0-8.0) 09/19/22 16:21 Ur Specific [place] 1.014 (1.001-1.035) 09/19/22 16:21 Urine Protein Negative (Negative) 09/19/22 16:21 Urine Glucose (UA) Negative (Negative) 09/19/22 16:21 Urine Ketones Negative (Negative) 09/19/22 16:21 Urine Blood Negative (Negative) 09/19/22 16:21 Urine Nitrite Negative (Negative) 09/19/22 16:21 Urine Bilirubin Negative (Negative) 09/19/22 16:21 Urine Urobilinogen <2.0 mg/dL (<2.0) 09/19/22 16:21 Ur Leukocyte Esterase Negative (Negative) 09/19/22 16:21 Urine Opiates Screen Detected (NotDetected) H 09/19/22 16:21 Ur Oxycodone Screen Not Detected (NotDetected) 09/19/22 16:21 Urine Methadone Screen Not Detected (NotDetected) 09/19/22 16:21 Ur Propoxyphene Screen Not Detected (NotDetected) 09/19/22 16:21 Ur Barbiturates Screen Not Detected (NotDetected) 09/19/22 16:21 U Tricyclic Antidepress Not Detected (NotDetected) 09/19/22 16:21 Ur Phencyclidine Scrn Not Detected (NotDetected) 09/19/22 16:21 Ur Amphetamines Screen Not Detected (NotDetected) 09/19/22 16:21 U Methamphetamines Scrn Not Detected (NotDetected) 09/19/22 16:21 U Benzodiazepines Scrn Detected (NotDetected) H 09/19/22 16:21 Urine Cocaine Screen Not Detected (NotDetected) 09/19/22 16:21 U Marijuana (THC) Screen Detected (NotDetected) H 09/19/22 16:21 Coronavirus (PCR) Not Detected (Not Detectd) 09/18/22 03:40 Allergies Allergy/AdvReac Type Severity Reaction Status Date / Time No Known Allergies Allergy Verified 09/18/22 06:16 Patient Condition at Discharge: Stable Plan - Discharge Summary Discharge Rx Participant: Yes New Discharge Prescriptions: New ARIPiprazole [Abilify] 10 mg PO DAILY 30 Days #30 tab Mirtazapine [Remeron] 15 mg PO HS 30 Days #30 tab Nicotine 14Mg/24Hr Patch [Habitrol] 1 patch TRANSDERM DAILY 30 Days #30 patch Multivitamins, Thera [Multivitamin (formulary)] 1 each PO DAILY 30 Days #30 tab Thiamine [Vitamin B-1] 100 mg PO DAILY 30 Days #30 tab Continue HYDROcodone/APAP 5-325MG [[place] 5-325] 1 tab PO BID PRN PRN Reason: lumbago Meloxicam [Mobic] 15 mg PO DAILY Gabapentin [Neurontin] 800 mg PO TID 15 Days #45 tablet Discontinued traZODone HCL [Desyrel] 100 mg PO HS QUEtiapine [SEROquel] 100 mg PO HS busPIRone HCL [Buspar] 30 mg PO BID LORazepam 0.5 mg PO DAILY Sertraline HCl [Zoloft] 50 mg PO DAILY Discharge Medication List HYDROcodone/APAP 5-325MG [[place] 5-325] 1 tab PO BID PRN 09/18/22 [History] Meloxicam [Mobic] 15 mg PO DAILY 09/18/22 [History] ARIPiprazole [Abilify] 10 mg PO DAILY 30 Days #30 tab 09/20/22 [Rx] Gabapentin [Neurontin] 800 mg PO TID 15 Days #45 tablet 09/20/22 [Rx] Mirtazapine [Remeron] 15 mg PO HS 30 Days #30 tab 09/20/22 [Rx] Multivitamins, Thera [Multivitamin (formulary)] 1 each PO DAILY 30 Days #30 tab 09/20/22 [Rx] Nicotine 14Mg/24Hr Patch [Habitrol] 1 patch TRANSDERM DAILY 30 Days #30 patch 09/20/22 [Rx] Thiamine [Vitamin B-1] 100 mg PO DAILY 30 Days #30 tab 09/20/22 [Rx] Follow up Appointment(s)/Referral(s): Froylan Hawkins MD [Primary Care Provider] - 1-2 days Patient Instructions/Handouts: Depression (DC), Suicide Prevention (DC) Activity/Diet/Wound Care/Special Instructions: Avoid the use of street drugs and alcohol. Take all medications as prescribed. When you are in need of refills on your medications, please contact your medical provider and/or outpatient psychiatrist to have this done. Please go to scheduled outpatient appointments for aftercare treatment. If symptoms return or become worse, call the crisis line at and/or go to the nearest emergency room for evaluation. Discharge Disposition: HOME SELF-CARE
[2022-09-20] MEDS: LORazepam 1 MG TAB PO PRN (12:21)
== END 2022-09-20 13:48 | disposition home or self-care (01) | DRG 751 ==
LOC: EC 03:09 → 3MHU 06:03
PROVIDERS: ADMIT Psychiatry & Neurology Psychiatry; ATTEND Psychiatry & Neurology Psychiatry
DX: F33.3 Major depressive disorder, recurrent, severe with psychotic symptoms (principal); F13.20 Sedative, hypnotic or anxiolytic dependence, uncomplicated; R45.851 Suicidal ideations; F11.20 Opioid dependence, uncomplicated; F10.10 Alcohol abuse, uncomplicated; Z20.822 Contact with and (suspected) exposure to COVID-19; F12.10 Cannabis abuse, uncomplicated; F41.9 Anxiety disorder, unspecified; E78.5 Hyperlipidemia, unspecified; G62.9 Polyneuropathy, unspecified; M19.90 Unspecified osteoarthritis, unspecified site; I25.10 Atherosclerotic heart disease of native coronary artery without angina pectoris; F17.210 Nicotine dependence, cigarettes, uncomplicated; I25.2 Old myocardial infarction; Z71.6 Tobacco abuse counseling; Z79.1 Long term (current) use of non-steroidal anti-inflammatories (NSAID); Z79.82 Long term (current) use of aspirin; Z79.899 Other long term (current) drug therapy; Z96.653 Presence of artificial knee joint, bilateral; Z86.73 Personal history of transient ischemic attack (TIA), and cerebral infarction without residual deficits; Z87.820 Personal history of traumatic brain injury
CPT/HCPCS: 80053; 80061; 80306; 81003; 82075; 82248; 83036; 84443; 85025; 87635; 99285

== ENCOUNTER 2023-10-28 20:56 | Inpatient (IN) | payer MEDICARE, MEDICAID ==
--- NOTE | 2023-10-28 22:17 | ED ---
General Adult HPI - General Chief complaint: Psychiatric Symptoms Stated complaint: Suicidal Time Seen by Provider: 10/28/23 22:00 Source: patient, RN notes reviewed, old records reviewed Mode of arrival: ambulatory Limitations: no limitations - History of Present Illness Initial comments: Patient is a 63-year-old male presents emergency department for psychiatric evaluation. Patient presents with depression as well as suicidal ideations to jump off a bridge. These are somewhat chronic but worse over the last few days. Has not acted on them. Does have a cardiac history. Also history of hypertension. Denies any homicidal ideations, intents, plans. Denies any visual auditory hallucinations. Denies any other acute complaints at this time other than chronic pain. Presents for further evaluation. - Related Data Home Medications Medication Instructions Recorded Confirmed HYDROcodone/APAP 5-325MG [[place] 1 tab PO BID PRN 09/18/22 10/29/23 5-325] Meloxicam [Mobic] 15 mg PO DAILY 09/18/22 10/29/23 Previous Rx's Medication Instructions Recorded ARIPiprazole [Abilify] 10 mg PO DAILY 30 Days #30 tab 09/20/22 Gabapentin [Neurontin] 800 mg PO TID 15 Days #45 tablet 09/20/22 Mirtazapine [Remeron] 15 mg PO HS 30 Days #30 tab 09/20/22 Multivitamins, Thera [Multivitamin 1 each PO DAILY 30 Days #30 tab 09/20/22 (formulary)] Nicotine 14Mg/24Hr Patch [Habitrol] 1 patch TRANSDERM DAILY 30 Days 09/20/22 #30 patch Thiamine [Vitamin B-1] 100 mg PO DAILY 30 Days #30 tab 09/20/22 Allergies Allergy/AdvReac Type Severity Reaction Status Date / Time No Known Allergies Allergy Verified 10/29/23 02:08 Review of Systems ROS Statement: Those systems with pertinent positive or pertinent negative responses have been documented in the HPI. Review of Systems: CONST: Denies fever EYES: Denies blurry vision ENT: Denies nasal congestion C/V: Denies Chest pain RESP: Denies shortness of breath GI: Denies abdominal pain : Denies dysuria SKIN: Denies rash. MSK: Denies joint pain. NEURO: Denies headache ROS Other: All systems not noted in ROS Statement are negative. Past Medical History Past Medical History: Coronary Artery Disease (CAD), CVA/TIA, Hyperlipidemia, Myocardial Infarction (PA), Pneumonia Additional Past Medical History / Comment(s): pneumonia, closed head injury, neuropathy Last Myocardial Infarction Date:: unknown History of Any Multi-Drug Resistant Organisms: None Reported Past Surgical History: Heart Catheterization With Stent, Joint Replacement, Orthopedic Surgery Additional Past Surgical History / Comment(s): esophogeal surgery, left femur and left hip with rods, bilateral knee replacement Past Anesthesia/Blood Transfusion Reactions: No Reported Reaction Date of Last Stent Placement:: unknown Past Psychological History: Anxiety, Depression Smoking Status: Current every day smoker Past Alcohol Use History: Daily, Occasional Past Drug Use History: Marijuana General Exam - General Exam Comments Initial Comments: General: Appears in no acute distress. HEAD: Normal with no signs of head trauma. EYES: EOMI ENT: Hearing grossly intact, normal oropharynx. RESPIRATORY: Clear breath sounds bilaterally. No wheezes, rales, or rhonchi. C/V: Regular rate and rhythm. S1 and S2 auscultated, no edema, peripheral pulses 2+ and intact throughout ABD: Abd is soft, nontender, nondistended EXT: no obvious deformity SKIN: No rashes or lesions observed on exposed skin. NEURO: Alert and oriented x 4 Limitations: no limitations Course Vital Signs 10/28/23 10/29/23 20:58 02:52 Temperature 98.6 F 98.6 F Pulse Rate 69 56 L Respiratory 18 18 Rate Blood Pressure 135/73 132/69 O2 Sat by Pulse 97 98 Oximetry Medical Decision Making - Medical Decision Making Was pt. sent in by a medical professional or institution (, PA, AQUATIC FACILITY MANAGER, urgent care, hospital, or care home...) When possible be specific @ -No Did you speak to anyone other than the patient for history (EMS, parent, family, police, friend...)? What history was obtained from this source @ -No Did you review nursing and triage notes (agree or disagree)? Why? @ -I reviewed and agree with nursing and triage notes Were old charts reviewed (outside hosp., previous admission, EMS record, old EKG, old radiological studies, urgent care reports/EKG's, care home records)? Report findings @ -Old charts reviewed which shows patient was diagnosed with depression and admitted to inpatient psychiatry in September 2022 Differential Diagnosis (chest pain, altered mental status, abdominal pain women, abdominal pain men, vaginal bleeding, weakness, fever, dyspnea, syncope, headache, dizziness, GI bleed, back pain, seizure, CVA, palpatations, mental health, musculoskeletal)? @ -Differential Mental Health Depression, anxiety, bipolar, psychosis, schizophrenia, borderline personality, situational depression, adjustment disorder, behavioral disorder, brain tumor, malingering, substance abuse, encephalopathy, medication reaction, dementia, hypothyroidism, degenerative neurologic disorder, lupus.... This is not meant to be all-inclusive list EKG interpreted by me (3pts min.). @ -As above X-rays interpreted by me (1pt min.). @ -None done CT interpreted by me (1pt min.). @ -None done U/S interpreted by me (1pt. min.). @ -None done What testing was considered but not performed or refused? (CT, X-rays, U/S, labs)? Why? @ -None What meds were considered but not given or refused? Why? @ -None Did you discuss the management of the patient with other professionals (professionals i.e. , PA, AQUATIC FACILITY MANAGER, lab, RT, psych nurse, aids social worker, product consultant, teacher, radio division officer, protective services case worker)? Give summary @ -EPS notified of the consult Was smoking cessation discussed for >3mins.? @ -No Was critical care preformed (if so, how long)? @ -No Were there social determinants of health that impacted care today? How? (Homelessness, low income, unemployed, alcoholism, drug addiction, transportation, low edu. Level, literacy, decrease access to med. care, nursing home, rehab)? @ -No Was there de-escalation of care discussed even if they declined (Discuss DNR or withdrawal of care, Hospice)? DNR status @ -No What co-morbidities impacted this encounter? (DM, HTN, Smoking, COPD, CAD, Cancer, CVA, ARF, Chemo, Hep., AIDS, mental health diagnosis, sleep apnea, morbid obesity)? @ -None Was patient admitted / discharged? Hospital course, mention meds given and route, prescriptions, significant lab abnormalities, going to OR and other pertinent info. @ -Patient presents for psychiatric evaluation. Complaining of depression and suicidal ideations to jump off a bridge. Sitter order placed. Suicide precautions ordered. Will obtain basic labs due to the patient's age as well as a screening EKG. Patient in agreement this plan. Vital signs within acceptable limits. He will be given a Tylenol for chronic knee pain. EKG shows no signs of acute ischemia.Patient's laboratory studies returned within acceptable limits. EKG shows no signs of acute ischemia. At this time, patient is medically cleared for evaluation by psychiatry. Disposition pending psychiatric evaluation. EPS notified of the consult. EPS evaluated the patient. Determined that he does meet inpatient criteria for admission. Patient admitted to inpatient psychiatry in stable condition. Undiagnosed new problem with uncertain prognosis? @ -No Drug Therapy requiring intensive monitoring for toxicity (Heparin, Nitro, Insulin, Cardizem)? @ -No Were any procedures done? @ -No Diagnosis/symptom? @ -Encounter for psychiatric evaluation, suicidal ideations with plan, depression Acute, or Chronic, or Acute on Chronic? @ -Acute Uncomplicated (without systemic symptoms) or Complicated (systemic symptoms)? @ -Complicated Side effects of treatment? @ -None Exacerbation, Progression, or Severe Exacerbation] @ -No Poses a threat to life or bodily function? @ -Yes - Lab Data Result diagrams: 10/28/23 22:08 10/28/23 22:08 Lab Results 10/28/23 10/28/23 10/29/23 Range/Units 22:08 22:08 00:43 WBC 5.6 (3.8-10.6) k/uL RBC 3.80 L (4.30-5.90) m/uL Hgb 11.7 L (13.0-17.5) gm/dL Hct 36.3 L (39.0-53.0) % MCV 95.7 (80.0-100.0) fL MCH 30.9 (25.0-35.0) pg MCHC 32.3 (31.0-37.0) g/dL RDW 14.4 (11.5-15.5) % Plt Count 186 (150-450) k/uL MPV 8.1 Neutrophils % 55 % Lymphocytes % 34 % Monocytes % 6 % Eosinophils % 2 % Basophils % 1 % Neutrophils # 3.1 (1.3-7.7) k/uL Lymphocytes # 1.9 (1.0-4.8) k/uL Monocytes # 0.3 (0-1.0) k/uL Eosinophils # 0.1 (0-0.7) k/uL Basophils # 0.0 (0-0.2) k/uL Sodium 136 L (137-145) mmol/L Potassium 4.2 (3.5-5.1) mmol/L Chloride 110 H (98-107) mmol/L Carbon Dioxide 21 L (22-30) mmol/L Anion Gap 5 mmol/L BUN 10 (9-20) mg/dL Creatinine 0.60 L (0.66-1.25) mg/dL Est GFR (CKD-EPI)AfAm >90 (>60 ml/min/1.73 sqM) Est GFR (CKD-EPI)NonAf >90 (>60 ml/min/1.73 sqM) Glucose 101 H (74-99) mg/dL Calcium 9.1 (8.4-10.2) mg/dL Urine Color Urine Appearance (Clear) Urine pH (5.0-8.0) Ur Specific [place] (1.001-1.035) Urine Protein (Negative) Urine Glucose (UA) (Negative) Urine Ketones (Negative) Urine Blood (Negative) Urine Nitrite (Negative) Urine Bilirubin (Negative) Urine Urobilinogen (<2.0) mg/dL Ur Leukocyte Esterase (Negative) Urine Opiates Screen Detected H (NotDetected) Ur Oxycodone Screen Not Detected (NotDetected) Urine Methadone Screen Not Detected (NotDetected) Ur Barbiturates Screen Not Detected (NotDetected) U Tricyclic Antidepress Detected H (NotDetected) Ur Phencyclidine Scrn Not Detected (NotDetected) Ur Amphetamines Screen Not Detected (NotDetected) U Methamphetamines Scrn Not Detected (NotDetected) U Benzodiazepines Scrn Detected H (NotDetected) Urine Cocaine Screen Not Detected (NotDetected) U Marijuana (THC) Screen Not Detected (NotDetected) Serum Alcohol <10 mg/dL Influenza Type A (PCR) (Not Detectd) Influenza Type B (PCR) (Not Detectd) RSV (PCR) (Not Detectd) SARS-CoV-2 (PCR) (Not Detectd) 10/29/23 10/29/23 Range/Units 00:43 00:43 WBC (3.8-10.6) k/uL RBC (4.30-5.90) m/uL Hgb (13.0-17.5) gm/dL Hct (39.0-53.0) % MCV (80.0-100.0) fL MCH (25.0-35.0) pg MCHC (31.0-37.0) g/dL RDW (11.5-15.5) % Plt Count (150-450) k/uL MPV Neutrophils % % Lymphocytes % % Monocytes % % Eosinophils % % Basophils % % Neutrophils # (1.3-7.7) k/uL Lymphocytes # (1.0-4.8) k/uL Monocytes # (0-1.0) k/uL Eosinophils # (0-0.7) k/uL Basophils # (0-0.2) k/uL Sodium (137-145) mmol/L Potassium (3.5-5.1) mmol/L Chloride (98-107) mmol/L Carbon Dioxide (22-30) mmol/L Anion Gap mmol/L BUN (9-20) mg/dL Creatinine (0.66-1.25) mg/dL Est GFR (CKD-EPI)AfAm (>60 ml/min/1.73 sqM) Est GFR (CKD-EPI)NonAf (>60 ml/min/1.73 sqM) Glucose (74-99) mg/dL Calcium (8.4-10.2) mg/dL Urine Color Colorless Urine Appearance Clear (Clear) Urine pH 5.5 (5.0-8.0) Ur Specific [place] 1.014 (1.001-1.035) Urine Protein Negative (Negative) Urine Glucose (UA) Negative (Negative) Urine Ketones Negative (Negative) Urine Blood Negative (Negative) Urine Nitrite Negative (Negative) Urine Bilirubin Negative (Negative) Urine Urobilinogen <2.0 (<2.0) mg/dL Ur Leukocyte Esterase Negative (Negative) Urine Opiates Screen (NotDetected) Ur Oxycodone Screen (NotDetected) Urine Methadone Screen (NotDetected) Ur Barbiturates Screen (NotDetected) U Tricyclic Antidepress (NotDetected) Ur Phencyclidine Scrn (NotDetected) Ur Amphetamines Screen (NotDetected) U Methamphetamines Scrn (NotDetected) U Benzodiazepines Scrn (NotDetected) Urine Cocaine Screen (NotDetected) U Marijuana (THC) Screen (NotDetected) Serum Alcohol mg/dL Influenza Type A (PCR) Not Detected (Not Detectd) Influenza Type B (PCR) Not Detected (Not Detectd) RSV (PCR) Not Detected (Not Detectd) SARS-CoV-2 (PCR) Not Detected (Not Detectd) - EKG Data -: EKG Interpreted by Me EKG Comments: 12-lead Electrocardiogram Interpretation Note EKG was reviewed and interpreted by myself. 12-lead ECG performed at 2213 is interpreted by me as revealing sinus bradycardia at a rate of 54 beats per minute. [place] is normal. [place] interval is 135 ms, QRS duration is 101 ms, QTc is 401 ms.. There were no ST or T wave abnormalities to suggest myocardial ischemi a or injury. R wave progression across the precordium was satisfactory. By my interpretation this EKG is non-diagnostic for acute ischemia. Disposition Clinical Impression: Depression, Encounter for psychiatric assessment, Suicidal ideation Disposition: TRANSFER TO PSYCH HOSP/UNIT Condition: Stable
[2023-10-28 22:18] LABS: Basophils % (A) 1 %; Eosinophils # (A) 0.1 k/uL (0-0.7); Eosinophils % (A) 2 %; HCT 36.3 % (39.0-53.0); HGB 11.7 gm/dL (13.0-17.5); Lymphocytes # (A) 1.9 k/uL (1.0-4.8); Lymphocytes % (A) 34 %; MCH 30.9 pg (25.0-35.0); MCHC 32.3 g/dL (31.0-37.0); MCV 95.7 fL (80.0-100.0); Mean Platelet Volume 8.1; Monocytes # (A) 0.3 k/uL (0-1.0); Monocytes % (A) 6 %; Neutrophils # (A) 3.1 k/uL (1.3-7.7); Neutrophils % (A) 55 %; Platelet Count 186 k/uL (150-450); RDW 14.4 % (11.5-15.5); WBC 5.6 k/uL (3.8-10.6)
[2023-10-28] MEDS: ACETAMINOPHEN TAB 325 MG TAB PO STA (22:23)
[2023-10-28 22:30] LABS: African American GFR (CKD) >90 (>60 ml/min/1.73 sqM); Alcohol <10 mg/dL; Anion Gap 5 mmol/L; Blood Urea Nitrogen 10 mg/dL (9-20); Calcium 9.1 mg/dL (8.4-10.2); Carbon Dioxide 21 mmol/L (22-30); Chloride 110 mmol/L (98-107); Glucose 101 mg/dL (74-99); Non-African American GFR(CKD) >90 (>60 ml/min/1.73 sqM); Potassium 4.2 mmol/L (3.5-5.1); Sodium 136 mmol/L (137-145)
[2023-10-29 01:30] LABS: Cocaine Screen,Urine Not Detected (NotDetected); Phencyclidine Screen,Urine Not Detected (NotDetected); Urn Cannabinoid Scrn Not Detected (NotDetected)
[2023-10-29 01:31] LABS: Amphetamine Screen,Urine Not Detected (NotDetected); Barbiturate Screen,Urine Not Detected (NotDetected); Benzodiazepines Screen,Urine Detected (NotDetected); Methadone Screen, Urine Not Detected (NotDetected); Opiate Screen,Urine Detected (NotDetected); Oxycodone Screen, Urine Not Detected (NotDetected); Tricyclic Antidepressant,Urine Detected (NotDetected)
[2023-10-29] MEDS ORDERED: LORazepam 2 MG/ML INJ IM PRN (01:52)
[2023-10-29] MEDS ORDERED: HALOPERIDOL LACTATE 5 MG/ML 1 ML VIAL IM PRN (01:52)
[2023-10-29] MEDS ORDERED: haloperidoL 5 MG TAB PO PRN (01:52)
[2023-10-29] MEDS ORDERED: GABAPENTIN 400 MG CAP PO PRN (01:59)
[2023-10-29 02:49] LABS: Appearance,Urine Clear (Clear); Bilirubin,Urine Negative (Negative); Blood,Urine Negative (Negative); Color,Urine Colorless; Glucose,Urine (UA) Negative (Negative); Ketones,Urine Negative (Negative); Leukocyte Esterase,Urine Negative (Negative); Nitrite,Urine Negative (Negative); PH, Urine 5.5 (5.0-8.0); Protein,Urine Negative (Negative); Specific Gravity,Urine 1.014 (1.001-1.035); Urobilinogen,Urine <2.0 mg/dL (<2.0)
[2023-10-29] MEDS: traZODone HCL 50 MG TAB PO PRN (03:23)
[2023-10-29] MEDS: LORazepam 1 MG TAB PO PRN (03:23)
[2023-10-29] MEDS ORDERED: MAG HYDROX/AL HYDROX/SIMETH 355 ML BOTTLE PO PRN (08:00)
[2023-10-29] MEDS: SERTRALINE 100 MG TAB PO SCH (08:46)
[2023-10-29] MEDS: PANTOPRAZOLE 40 MG TABLET PO SCH (08:46)
[2023-10-29] MEDS: DULoxetine HCL 60 MG CAPSULE.DR PO SCH (08:46)
[2023-10-29] MEDS: HYDROcodone/APAP 7.5-325MG 1 EACH TAB PO PRN (08:47)
[2023-10-29] MEDS: NICOTINE 14MG/24HR PATCH TRANSDERM SCH (08:47)
[2023-10-29] MEDS ORDERED: MAGNESIUM HYDROXIDE 2,400 MG/30 ML CUP PO PRN (09:00)
[2023-10-29 09:12] LABS: Albumin 3.9 g/dL (3.5-5.0); Bilirubin, Delta 0.2 mg/dL (0.0-0.2); Bilirubin,Unconjugated 0.1 mg/dL (0.0-1.1); Total Bilirubin 0.3 mg/dL (0.2-1.3)
[2023-10-29] MEDS: GABAPENTIN 400 MG CAP PO PRN (10:48)
--- NOTE | 2023-10-29 14:11 | P.HP ---
Psychiatric H&P - . H&P Date: 10/29/23 History & Physical: Allergies Allergy/AdvReac Type Severity Reaction Status Date / Time No Known Allergies Allergy Verified 10/29/23 02:08 Vital Signs Temp 97.3 F L 10/29/23 03:32 Pulse 93 10/29/23 08:47 Resp 18 10/29/23 08:47 BP 99/51 10/29/23 08:47 Pulse Ox 98 10/29/23 08:47 FiO2 Intake & Output 10/28/23 10/29/23 10/29/23 18:59 06:59 18:59 Weight 67.755 kg Laboratory Last Values WBC 5.6 k/uL (3.8-10.6) 10/28/23 22:08 RBC 3.80 m/uL (4.30-5.90) L 10/28/23 22:08 Hgb 11.7 gm/dL (13.0-17.5) L 10/28/23 22:08 Hct 36.3 % (39.0-53.0) L 10/28/23 22:08 MCV 95.7 fL (80.0-100.0) 10/28/23 22:08 MCH 30.9 pg (25.0-35.0) 10/28/23 22:08 MCHC 32.3 g/dL (31.0-37.0) 10/28/23 22:08 RDW 14.4 % (11.5-15.5) 10/28/23 22:08 Plt Count 186 k/uL (150-450) 10/28/23 22:08 MPV 8.1 10/28/23 22:08 Neutrophils % 55 % 10/28/23 22:08 Lymphocytes % 34 % 10/28/23 22:08 Monocytes % 6 % 10/28/23 22:08 Eosinophils % 2 % 10/28/23 22:08 Basophils % 1 % 10/28/23 22:08 Neutrophils # 3.1 k/uL (1.3-7.7) 10/28/23 22:08 Lymphocytes # 1.9 k/uL (1.0-4.8) 10/28/23 22:08 Monocytes # 0.3 k/uL (0-1.0) 10/28/23 22:08 Eosinophils # 0.1 k/uL (0-0.7) 10/28/23 22:08 Basophils # 0.0 k/uL (0-0.2) 10/28/23 22:08 Sodium 136 mmol/L (137-145) L 10/28/23 22:08 Potassium 4.2 mmol/L (3.5-5.1) 10/28/23 22:08 Chloride 110 mmol/L (98-107) H 10/28/23 22:08 Carbon Dioxide 21 mmol/L (22-30) L 10/28/23 22:08 Anion Gap 5 mmol/L 10/28/23 22:08 BUN 10 mg/dL (9-20) 10/28/23 22:08 Creatinine 0.60 mg/dL (0.66-1.25) L 10/28/23 22:08 Est GFR (CKD-EPI)AfAm >90 (>60 ml/min/1.73 sqM) 10/28/23 22:08 Est GFR (CKD-EPI)NonAf >90 (>60 ml/min/1.73 sqM) 10/28/23 22:08 Glucose 101 mg/dL (74-99) H 10/28/23 22:08 Calcium 9.1 mg/dL (8.4-10.2) 10/28/23 22:08 Urine Color Colorless 10/29/23 00:43 Urine Appearance Clear (Clear) 10/29/23 00:43 Urine pH 5.5 (5.0-8.0) 10/29/23 00:43 Ur Specific [place] 1.014 (1.001-1.035) 10/29/23 00:43 Urine Protein Negative (Negative) 10/29/23 00:43 Urine Glucose (UA) Negative (Negative) 10/29/23 00:43 Urine Ketones Negative (Negative) 10/29/23 00:43 Urine Blood Negative (Negative) 10/29/23 00:43 Urine Nitrite Negative (Negative) 10/29/23 00:43 Urine Bilirubin Negative (Negative) 10/29/23 00:43 Urine Urobilinogen <2.0 mg/dL (<2.0) 10/29/23 00:43 Ur Leukocyte Esterase Negative (Negative) 10/29/23 00:43 Urine Opiates Screen Detected (NotDetected) H 10/29/23 00:43 Ur Oxycodone Screen Not Detected (NotDetected) 10/29/23 00:43 Urine Methadone Screen Not Detected (NotDetected) 10/29/23 00:43 Ur Barbiturates Screen Not Detected (NotDetected) 10/29/23 00:43 U Tricyclic Antidepress Detected (NotDetected) H 10/29/23 00:43 Ur Phencyclidine Scrn Not Detected (NotDetected) 10/29/23 00:43 Ur Amphetamines Screen Not Detected (NotDetected) 10/29/23 00:43 U Methamphetamines Scrn Not Detected (NotDetected) 10/29/23 00:43 U Benzodiazepines Scrn Detected (NotDetected) H 10/29/23 00:43 Urine Cocaine Screen Not Detected (NotDetected) 10/29/23 00:43 U Marijuana (THC) Screen Not Detected (NotDetected) 10/29/23 00:43 Serum Alcohol <10 mg/dL 10/28/23 22:08 Influenza Type A (PCR) Not Detected (Not Detectd) 10/29/23 00:43 Influenza Type B (PCR) Not Detected (Not Detectd) 10/29/23 00:43 RSV (PCR) Not Detected (Not Detectd) 10/29/23 00:43 SARS-CoV-2 (PCR) Not Detected (Not Detectd) 10/29/23 00:43 10/29/23 09:05 IDENTIFYING DATA: Patient is a 63-year-old male. Lives alone in an apartment. Collects SSI HPI: Patient presented to the hospital on 10/27. As per EPS note, "Pt presents voluntary to EC /c c/o suicidal ideation /c a plan; pt states "I was going to either jump in front of a train or jump off a bridge or walk into traffic." Pt denies HI, denies hallucinations; "I used to have them, but not anymore," and no delusional thoughts verbalized. Pt states "I've just been having some really bad thoughts to hurt myself. I've just been feeling bad about myself for the past week. I've been diagnosed /c Manic Depressive Disorder /c Reoccurring Bipolar Depression, psychotic features...something like that." Pt states he called [facility], talked to Jessi today "who told me I should come to the EC." Pt states he takes his meds as prescribed by his PCP. Pt couldn't identify any triggers for his suicidal thoughts. Pt states if he was discharged from the EC, he couldn't keep himself safe; "I don't think so; I think I would try to hurt/kill myself." Pt is willing to sign in AFV. " Patient was seen today taking part in group agreeable to speak to telegraphic typewriter operator. He was using a walker, he claims that he was feeling suicidal before he came into the hospital. Related that he had a plan to possibly jump into traffic or jump off a bridge. He states that his depression has been getting worse for the past several weeks. Claims that he has been having multiple stressors including recovering from several surgeries mainly orthopedic surgeries. He states that he is still dealing with pain and pain control/management. He states that he is recently just out of a relationship with his girlfriend. He claims that he is also having legal issues with the courts related to a OUI charge pack from 2022. Claims that he does have a history of anxiety. States that he has been going to [facility] and has been taking his medications at home. States that his sleep has been fairly poor, fairly preoccupied with his sleep medications. States that his appetite is fair. Patient denies any current suicidal or homicidal ideations intent or plan. At this time patient denies any auditory or visual hallucinations. Patient denies any flight of ideas racing thoughts and increased in goal directed behavior. Patient states he has been sober for 1 year. Claims that he is not using any recreational drugs at this time or cigarettes. PAST PSYCHIATRIC HISTORY: Patient states that he has been previously diagnosed with depression. He reports being previously prescribed Zoloft. He was last inpatient on this unit in September 2022. He reports that he is seeing a nurse practitioner at [facility]. Last hospitalized at [facility] 12/2022. PMH:As per ER note ALLERGIES: as per EMR CHEMICAL DEPENDENCY HISTORY: as per HPI FAMILY PSYCHIATRIC/SUBSTANCE USE HISTORY: the patient reports that both his sisters suffered from depression. SOCIAL HISTORY: Patient was born and raised in [place], [place]. He is single, never , but has 2 adult children. He currently lives in a senior housing apartment with his cat. He is on disability. He completed only up to the ninth grade. He states that he is Religious. He currently has no legal history, past history of DUI MENTAL STATUS EXAM: General Appearance: Patient appears to be balding, using a walker, stated age is alert, directable, and attempts to cooperate. Patient appears to have fair hygiene and grooming. Behavior: Patient is seated without any agitated behavior. Fairly pleasant Speech: Patient's speech is fluent and nonpressured. Rambles at times Mood/Affect: Patient reports their mood is depressed and anxious, affect is congruent and constricted. Suicidality/Homicidality: Patient denies having any homicidal ideation intent or plan. Denies any suicidal ideations intent or plan Perceptions: Patient denies any visual hallucinations and denies any auditory hallucinations Though content/process: There is no evidence of any delusional thought content and thought process is linear and goal-directed. Rambles at times. Focused on his stressors Memory and concentration: AOX3, grossly intact for the purposes of this session. Can spell "WORLD" backwards Judgment and insight: Poor STRENGTHS/WEAKNESSES: strength is that patient is resilient. Weakness is that patient has poor judgment and is impulsive INTELLECT: Average IMPRESSIONS: Major depressive disorder, recurrent, severe, without psychotic features Anxiety disorder unspecified PLAN: -Patient is admitted under voluntary status to MHU for stabilization of psychiatric symptoms and safety. Patient has signed adult voluntary form and medication consent and is placed in patient's chart. -Medications : Will start patient on Cymbalta 60 mg daily +30 mg nightly for mood/anxiety/pain, Seroquel 200 mg nightly for mood stabilization/insomnia. Trazodone 100 mg nightly as needed for insomnia. -Ativan and Haldol PRN for agitation/aggression -Patient was informed of the risks, benefits and side effects of the medication and patient verbally consented to taking the medications. -Internal Medicine consult to perform medical evaluation and physical. -NRT -not needed as patient does not smoke. -SW on board for discharge planning. Encourage patient to participate in groups to work on coping skills. 10/29/23 14:05
[2023-10-29] MEDS: IBUPROFEN 600 MG TAB PO PRN (15:05)
[2023-10-29] MEDS: DULoxetine HCL 30 MG CAPSULE.DR PO SCH (21:36)
[2023-10-29] MEDS: QUEtiapine 200 MG TAB PO SCH (21:36)
--- NOTE | 2023-10-29 22:19 | CONS ---
CONSULTATION CHIEF COMPLAINT: Major depression with suicidal thoughts. HISTORY OF PRESENT ILLNESS: This gentleman presented to the emergency room with suicidal thoughts. He had a plan to jump off the bridge. REVIEW OF SYSTEMS: He has had no headaches, chest pain, shortness of breath, abdominal pain, etc. Past medical history, family history, personal and social histories are all otherwise unremarkable and noncontributory. PHYSICAL EXAMINATION: VITAL SIGNS: Normal. HEAD, EARS, EYES, NOSE, MOUTH, AND THROAT: Normal. CHEST: Clear. CARDIAC: Normal. ABDOMEN: Soft and nontender. EXTREMITIES: Normal. He is walking with a walker. IMPRESSION: Major depression with suicidal thoughts. RECOMMENDATIONS: None. MMODL / IJN: [id number] /
[2023-10-30 08:40] LABS: Chol/HDL Ratio 2.66 Ratio; LDL Cholesterol,Calculated 71.4 mg/dL (0.0-131.0); VLDL Calculation 17.24 mg/dL (5.00-40.00)
--- NOTE | 2023-10-30 12:10 | P.PN ---
Progress Note - Text Progress Note Date: 10/30/23 Interval History: Patient was seen wandering the hallways and was directable and agreeable to sp mercy with keno writer in the office. Patient states that he slept very well last night, and he feels blessed and happy today. Patient is focused on higher doses of his medication, keno writer told patient that the medications have to gradually increase, to prevent problems. Patient is focused on discharge, keno writer told patient that he would more than likely be staying until Friday, so the medications are working well for him, and he is more psychiatrically stable. Patient is attending groups, and being present on the unit. He states that his appetite is not all that great, but it is not unusual for him. At this time patient denies any suicidal or homicidal ideations, intent or plan. Patient denies any auditory, visual hallucinations and denies any paranoia or delusions. Patient denies any side effects from the medications and has been compliant with meds. MENTAL STATUS EXAM: General Appearance: Patient appears to be balding, using a walker, stated age is alert, directable, and attempts to cooperate. Patient appears to have fair hygiene and grooming. Behavior: Patient is seated without any agitated behavior. Fairly pleasant Speech: Patient's speech is fluent and nonpressured. Rambles at times Mood/Affect: Patient reports their mood is happy and blessed, affect is congruent and constricted. Suicidality/Homicidality: Patient denies having any homicidal ideation intent or plan. Denies any suicidal ideations intent or plan Perceptions: Patient denies any visual hallucinations and denies any auditory hallucinations Though content/process: There is no evidence of any delusional thought content and thought process is linear and goal-directed. Rambles at times. Focused on his medications Memory and concentration: AOX3, grossly intact for the purposes of this session. Judgment and insight: Poor IMPRESSIONS: Major depressive disorder, recurrent, severe, without psychotic features Anxiety disorder unspecified PLAN: -Patient is admitted under voluntary status to [facility]HU for stabilization of psychiatric symptoms and safety. -Medications : Cymbalta 60 mg daily +30 mg nightly for mood/anxiety/pain, increase Seroquel 300 mg nightly for mood stabilization/insomnia. Trazodone 100 mg nightly as needed for insomnia. -Ativan and Haldol PRN for agitation/aggression -SW on board for discharge planning. Encourage patient to participate in groups to work on coping skills. likely discharge friday
[2023-10-30] MEDS: QUEtiapine 100 MG TAB PO SCH (21:49)
[2023-10-31 07:00] VITALS: RESP 16
--- NOTE | 2023-10-31 11:37 | P.PN ---
Progress Note - Text Progress Note Date: 10/31/23 Interval History: Patient was seen wandering the hallways and was directable and agreeable to fatmata madrid with magnetic tape typewriter operator in the office. And has been taking part in group, states that he is learning a lot from group. Claims that he slept a bit better last night did admit to taking Ativan overnight. He did state that he does have some anxiety, was agreeable to have his Cymbalta increased. He claims that he is eating well, enjoying the company of other patients on the unit. Claims that his mood is gradually improving. At this time patient denies any suicidal or homicidal ideations, intent or plan. Patient denies any auditory, visual hallucinations and denies any paranoia or delusions. Patient denies any side effects from the medications and has been compliant with meds. MENTAL STATUS EXAM: General Appearance: Patient appears to be balding, using a walker, stated age is alert, directable, and attempts to cooperate. Patient appears to have fair hygiene and grooming. Behavior: Patient is seated without any agitated behavior. Fairly pleasant Speech: Patient's speech is fluent and nonpressured. Rambles at times, improving mildly Mood/Affect: Patient reports their mood is happy and blessed, affect is congruent and constricted. Suicidality/Homicidality: Patient denies having any homicidal ideation intent or plan. Denies any suicidal ideations intent or plan Perceptions: Patient denies any visual hallucinations and denies any auditory hallucinations Though content/process: There is no evidence of any delusional thought content and thought process is linear and goal-directed. Rambles at times. Focused on his medications Memory and concentration: AOX3, grossly intact for the purposes of this session. Judgment and insight: Improving mildly IMPRESSIONS: Major depressive disorder, recurrent, severe, without psychotic features Anxiety disorder unspecified PLAN: -Patient is admitted under voluntary status to MHU for stabilization of psychiatric symptoms and safety. -Medications : increase Cymbalta 60 mg BID for mood/anxiety/pain, Seroquel 300 mg nightly for mood stabilization/insomnia. Trazodone 100 mg nightly as needed for insomnia. -Ativan and Haldol PRN for agitation/aggression -SW on board for discharge planning. Encourage patient to participate in groups to work on coping skills. likely discharge friday if patient is doing well, will be going back home.
[2023-10-31] MEDS: DULoxetine HCL 60 MG CAPSULE.DR PO SCH (20:41)
[2023-10-31] MEDS: traZODone HCL 100 MG TAB PO PRN (22:20)
--- NOTE | 2023-11-01 14:34 | P.PN ---
Progress Note - Text Progress Note Date: 11/01/23 Interval History: Patient was seen wandering the hallways and was directable and agreeable to sp mercy with development writer in the office. He states that his mood has been "good ". He is euthymic and pleasant on interview. He reports having had some trouble sleeping last night and is agreeable with resuming home dose of Remeron. Patient denies anxiety or depression at this time. He received Ativan 1 mg as needed this morning agitation and asked about it being continued. He was reminded that this is not going to be scheduled or recommended long-term. He reports good appetite and continues to interact on the milieu. At this time patient denies any suicidal or homicidal ideations, intent or plan. Patient denies any auditory, visual hallucinations and denies any paranoia or delusions. Patient denies any side effects from the medications and has been compliant with meds. MENTAL STATUS EXAM: General Appearance: Patient appears to be balding, using a walker, stated age is alert, directable, and attempts to cooperate. Patient appears to have fair hygiene and grooming. Behavior: Patient is seated without any agitated behavior. Fairly pleasant Speech: Patient's speech is fluent and nonpressured. Mood/Affect: Patient reports their mood is happy, affect is congruent Suicidality/Homicidality: Patient denies having any homicidal ideation intent or plan. Denies any suicidal ideations intent or plan Perceptions: Patient denies any visual hallucinations and denies any auditory hallucinations Though content/process: There is no evidence of any delusional thought content and thought process is linear and goal-directed. Focused on his medications Memory and concentration: AOX3, grossly intact for the purposes of this session. Judgment and insight: Improving mildly IMPRESSIONS: Major depressive disorder, recurrent, severe, without psychotic features Anxiety disorder unspecified PLAN: -Patient is admitted under voluntary status to MHU for stabilization of psychiatric symptoms and safety. -Medications : Cymbalta 60 mg BID for mood/anxiety/pain, Seroquel 300 mg nightly for mood stabilization/insomnia. Trazodone 100 mg nightly as needed for insomnia. Add home Remeron 15 mg qHS for mood and sleep -Ativan and Haldol PRN for agitation/aggression -SW on board for discharge planning. Encourage patient to participate in groups to work on coping skills. likely discharge friday if patient is doing well, will be going back home.
[2023-11-01] MEDS: MIRTAZAPINE 15 MG TAB PO SCH (22:21)
[2023-11-02 08:49] VITALS: BP 98/58; PULSE 102; TEMP 97.5
--- NOTE | 2023-11-02 14:30 | P.PN ---
Progress Note - Text Progress Note Date: 11/02/23 Interval History: Patient was seen in the TV room and was directable and agreeable to speak with senior mortgage underwriter in the office. He states that his mood has been "good ". He is euthymic and pleasant on interview. He states that sleep has improved since being on Remeron. Patient denies anxiety or depression at this time. He received Ativan 1 mg as needed this afternoon for agitation. He reports good appetite and continues to interact on the milieu. At this time patient denies any suicidal or homicidal ideations, intent or plan. Patient denies any auditory, visual hallucinations and denies any paranoia or delusions. Patient denies any side effects from the medications and has been compliant with meds. MENTAL STATUS EXAM: General Appearance: Patient appears to be balding, using a walker, stated age is alert, directable, and attempts to cooperate. Patient appears to have fair hygiene and grooming. Behavior: Patient is seated without any agitated behavior. Fairly pleasant Speech: Patient's speech is fluent and nonpressured. Mood/Affect: Patient reports their mood is happy, affect is congruent Suicidality/Homicidality: Patient denies having any homicidal ideation intent or plan. Denies any suicidal ideations intent or plan Perceptions: Patient denies any visual hallucinations and denies any auditory hallucinations Though content/process: There is no evidence of any delusional thought content and thought process is linear and goal-directed. Focused on his medications Memory and concentration: AOX3, grossly intact for the purposes of this session. Judgment and insight: Improving mildly IMPRESSIONS: Major depressive disorder, recurrent, severe, without psychotic features Anxiety disorder unspecified PLAN: -Patient is admitted under voluntary status to MHU for stabilization of psychiatric symptoms and safety. -Medications : Cymbalta 60 mg BID for mood/anxiety/pain, Seroquel 300 mg nightly for mood stabilization/insomnia. Trazodone 100 mg nightly as needed for insomnia. Add home Remeron 15 mg qHS for mood and sleep -Ativan and Haldol PRN for agitation/aggression -SW on board for discharge planning. Encourage patient to participate in groups to work on coping skills. likely discharge friday if patient is doing well, will be going back home.
[2023-11-02] MEDS: ACETAMINOPHEN TAB 325 MG TAB PO PRN (22:21)
--- NOTE | 2023-11-03 10:22 | P.DS ---
Providers Date of admission: 10/29/23 01:47 Expected date of discharge: 11/03/23 Attending physician: Skyler Pearson MD Consults: 10/29/23 01:52 Consult Physician Routine Consulting Provider: Miguel Case Consult Reason/Comments: For H & P for Medical Follow Up Do you want consulting provider notified?: Yes, Notify in am Primary care physician: Miguel Case - Discharge Diagnosis(es) (1) Major depressive disorder, recurrent severe without psychotic features Current Visit: No Status: Acute Priority: High (2) Anxiety disorder Current Visit: Yes Status: Acute Priority: Medium Hospital Course: Admission HPI: Admission note was completed by ticket writer "Patient presented to the hospital on 10/27. As per EPS note, "Pt presents voluntary to EC /c c/o suicidal ideation /c a plan; pt states "I was going to either jump in front of a train or jump off a bridge or walk into traffic." Pt denies HI, denies hallucinations; "I used to have them, but not anymore," and no delusional thoughts verbalized. Pt states "I've just been having some really bad thoughts to hurt myself. I've just been feeling bad about myself for the past week. I've been diagnosed /c Manic Dep ressive Disorder /c Reoccurring Bipolar Depression, psychotic features...something like that." Pt states he called [facility], talked to Jessi today "who told me I should come to the EC." Pt states he takes his meds as prescribed by his PCP. Pt couldn't identify any triggers for his suicidal thoughts. Pt states if he was discharged from the EC, he couldn't keep himself safe; "I don't think so; I think I would try to hurt/kill myself." Pt is willing to sign in AFV. " Patient was seen today taking part in group agreeable to speak to ticket writer. He was using a walker, he claims that he was feeling suicidal before he came into the hospital. Related that he had a plan to possibly jump into traffic or jump off a bridge. He states that his depression has been getting worse for the past several weeks. Claims that he has been having multiple stressors including recovering from several surgeries mainly orthopedic surgeries. He states that he is still dealing with pain and pain control/management. He states that he is recently just out of a relationship with his girlfriend. He claims that he is also having legal issues with the courts related to a OUI charge pack from 2022. Claims that he does have a history of anxiety. States that he has been going to [facility] and has been taking his medications at home. States that his sleep has been fairly poor, fairly preoccupied with his sleep medications. States that his appetite is fair. Patient denies any current suicidal or homicidal ideations intent or plan. At this time patient denies any auditory or visual hallucinations. Patient denies any flight of ideas racing thoughts and increased in goal directed behavior. Patient states he has been sober for 1 year. Claims that he is not using any recreational drugs at this time or cigarettes." Hospital course: Upon admission to the unit patient was directable and agreeable to commence treatment and signed adult voluntary form. Patient got along well with other patients on the unit and followed unit protocol. Patient was compliant with the medications and denied any side effects throughout hospital course. Patient was started on Cymbalta and increased to dose of 60 mg twice daily for mood/anxiety/pain, Seroquel 300 mg nightly for mood stabilization/insomnia, trazodone 100 mg nightly as needed for insomnia, Remeron 15 mg nightly for mood/sleep.. Patient spoke of his stressors and engaged in therapy both group and individual. Patient was also seen by medical team for history and physical exam. Throughout the course of the hospitalization patient gradually improved with regards to mood, anxiety, sleep and returned back to their baseline level of functioning. On the day of discharge patient denied any suicidal or homicidal ideations intent or plan denied any auditory or visual hallucinations. Patient endorsed wanting to live for his health and family. The patient denied any access to guns or weapons. Patient denied any paranoia and did not endorse any delusions. Patient does not have a significant history of substance abuse and was counseled on abstaining from all substances including alcohol and marijuana. Patient was also counseled on the medications and need for regular compliance and was encouraged to follow-up with their outpatient appointment for mental health and also for primary care. Patient will be discharged today back home, he will be following with [facility]. Mental status exam: General Appearance: Patient appears to be thin, balding, using a walker, stated age is alert, pleasant, and cooperative. Patient is in no acute distress and has improved hygiene and grooming Behavior: Patient is calmly seated without any agitated behavior. Speech: Patient's speech is fluent and nonpressured. Mood/Affect: Patient reports their mood is "better", affect is congruent and euthymic. Suicidality/Homicidality: Patient denies having any suicidal or homicidal ideation intent or plan. Perceptions: Patient denies any auditory or visual hallucinations. Though content/process: There is no evidence of any delusional thought content and thought process is linear and goal-directed. More future oriented Memory and concentration: AOX3, grossly intact for the purposes of this session. Can spell "WORLD" backwards correctly. Judgment and insight: improved with guarded prognosis Impression: Major depressive disorder, recurrent, severe, without psychotic features Anxiety disorder unspecified Plan: -Continue with discharge today as patient has improved and stabilized psychiatrically and is not currently an imminent threat to himself and/or o thers. -Continue medications: Cymbalta 60 mg twice daily for mood/anxiety/pain, Seroquel 300 mg nightly for mood stabilization/insomnia, trazodone 100 mg nightly as needed for insomnia, Remeron 15 mg nightly for mood/sleep. -Patient was counseled on the need for medication compliance and appropriate follow-up at mental health and also primary care for medical issues. Patient verbalized understanding and agreed. -Social work to help coordinate patient's discharge today. Social work also to arrange for patients follow up appointments with [facility] for psychiatric care along with follow up with primary care provider. -Patient counseled on abstaining from recreational drugs and marijuana and alcohol. Was informed/educated on the adverse effects on their physical and mental health. Patient verbally agreed and understood. -Patient was instructed to return to the hospital or seek immediate medical care if their psychiatric or medical symptoms do worsen or reoccur. Allergies Allergy/AdvReac Type Severity Reaction Status Date / Time No Known Allergies Allergy Verified 10/29/23 02:08 Laboratory Results WBC 5.6 k/uL (3.8-10.6) 10/28/23 22:08 RBC 3.80 m/uL (4.30-5.90) L 10/28/23 22:08 Hgb 11.7 gm/dL (13.0-17.5) L 10/28/23 22:08 Hct 36.3 % (39.0-53.0) L 10/28/23 22:08 MCV 95.7 fL (80.0-100.0) 10/28/23 22:08 MCH 30.9 pg (25.0-35.0) 10/28/23 22:08 MCHC 32.3 g/dL (31.0-37.0) 10/28/23 22:08 RDW 14.4 % (11.5-15.5) 10/28/23 22:08 Plt Count 186 k/uL (150-450) 10/28/23 22:08 MPV 8.1 10/28/23 22:08 Neutrophils % 55 % 10/28/23 22:08 Lymphocytes % 34 % 10/28/23 22:08 Monocytes % 6 % 10/28/23 22:08 Eosinophils % 2 % 10/28/23 22:08 Basophils % 1 % 10/28/23 22:08 Neutrophils # 3.1 k/uL (1.3-7.7) 10/28/23 22:08 Lymphocytes # 1.9 k/uL (1.0-4.8) 10/28/23 22:08 Monocytes # 0.3 k/uL (0-1.0) 10/28/23 22:08 Eosinophils # 0.1 k/uL (0-0.7) 10/28/23 22:08 Basophils # 0.0 k/uL (0-0.2) 10/28/23 22:08 Sodium 136 mmol/L (137-145) L 10/28/23 22:08 Potassium 4.2 mmol/L (3.5-5.1) 10/28/23 22:08 Chloride 110 mmol/L (98-107) H 10/28/23 22:08 Carbon Dioxide 21 mmol/L (22-30) L 10/28/23 22:08 Anion Gap 5 mmol/L 10/28/23 22:08 BUN 10 mg/dL (9-20) 10/28/23 22:08 Creatinine 0.60 mg/dL (0.66-1.25) L 10/28/23 22:08 Est GFR (CKD-EPI)AfAm >90 (>60 ml/min/1.73 sqM) 10/28/23 22:08 Est GFR (CKD-EPI)NonAf >90 (>60 ml/min/1.73 sqM) 10/28/23 22:08 Glucose 101 mg/dL (74-99) H 10/28/23 22:[address] Glu mg/dL 111 mg/dL 10/29/23 07:48 Hemoglobin A1c 5.5 % (<=6.0) 10/29/23 07:48 Calcium 9.1 mg/dL (8.4-10.2) 10/28/23 22:08 Total Bilirubin 0.3 mg/dL (0.2-1.3) 10/29/23 07:48 Conjugated Bilirubin 0.0 mg/dL (0.0-0.3) 10/29/23 07:48 Unconjugated Bilirubin 0.1 mg/dL (0.0-1.1) 10/29/23 07:48 Delta Bilirubin 0.2 mg/dL (0.0-0.2) 10/29/23 07:48 AST 21 U/L (17-59) 10/29/23 07:48 ALT 12 U/L (4-49) 10/29/23 07:48 Alkaline Phosphatase 131 U/L (38-126) H 10/29/23 07:48 Total Protein 6.0 g/dL (6.3-8.2) L 10/29/23 07:48 Albumin 3.9 g/dL (3.5-5.0) 10/29/23 07:48 Triglycerides 86.20 mg/dL (0.00-149.00) 10/28/23 22:08 Cholesterol 142.00 mg/dL (0.00-200.00) 10/28/23 22:08 LDL Cholesterol, Calc 71.4 mg/dL (0.0-131.0) 10/28/23 22:08 VLDL Cholesterol, Calc 17.24 mg/dL (5.00-40.00) 10/28/23 22:08 HDL Cholesterol 53.40 mg/dL (40.00-60.00) 10/28/23 22:08 Cholesterol/HDL Ratio 2.66 Ratio 10/28/23 22:08 TSH 1.910 mIU/L (0.465-4.680) 10/29/23 07:48 Urine Color Colorless 10/29/23 00:43 Urine Appearance Clear (Clear) 10/29/23 00:43 Urine pH 5.5 (5.0-8.0) 10/29/23 00:43 Ur Specific [place] 1.014 (1.001-1.035) 10/29/23 00:43 Urine Protein Negative (Negative) 10/29/23 00:43 Urine Glucose (UA) Negative (Negative) 10/29/23 00:43 Urine Ketones Negative (Negative) 10/29/23 00:43 Urine Blood Negative (Negative) 10/29/23 00:43 Urine Nitrite Negative (Negative) 10/29/23 00:43 Urine Bilirubin Negative (Negative) 10/29/23 00:43 Urine Urobilinogen <2.0 mg/dL (<2.0) 10/29/23 00:43 Ur Leukocyte Esterase Negative (Negative) 10/29/23 00:43 Urine Opiates Screen Detected (NotDetected) H 10/29/23 00:43 Ur Oxycodone Screen Not Detected (NotDetected) 10/29/23 00:43 Urine Methadone Screen Not Detected (NotDetected) 10/29/23 00:43 Ur Barbiturates Screen Not Detected (NotDetected) 10/29/23 00:43 U Tricyclic Antidepress Detected (NotDetected) H 10/29/23 00:43 Ur Phencyclidine Scrn Not Detected (NotDetected) 10/29/23 00:43 Ur Amphetamines Screen Not Detected (NotDetected) 10/29/23 00:43 U Methamphetamines Scrn Not Detected (NotDetected) 10/29/23 00:43 U Benzodiazepines Scrn Detected (NotDetected) H 10/29/23 00:43 Urine Cocaine Screen Not Detected (NotDetected) 10/29/23 00:43 U Marijuana (THC) Screen Not Detected (NotDetected) 10/29/23 00:43 Serum Alcohol <10 mg/dL 10/28/23 22:08 Influenza Type A (PCR) Not Detected (Not Detectd) 10/29/23 00:43 Influenza Type B (PCR) Not Detected (Not Detectd) 10/29/23 00:43 RSV (PCR) Not Detected (Not Detectd) 10/29/23 00:43 SARS-CoV-2 (PCR) Not Detected (Not Detectd) 10/29/23 00:43 Vital Signs Temp 97.5 F L 11/02/23 08:38 Pulse 102 H 11/02/23 08:38 Resp 16 11/01/23 06:00 BP 98/58 11/02/23 08:38 Pulse Ox 99 11/02/23 08:38 FiO2 Intake & Output 11/02/23 11/03/23 11/03/23 18:59 06:59 18:59 Weight 69.6 kg Patient Condition at Discharge: Stable Plan - Discharge Summary Discharge Rx Participant: Yes New Discharge Prescriptions: New Pantoprazole [Protonix] 40 mg PO AC-BRKFST 30 Days #30 tab DULoxetine HCL [Cymbalta] 60 mg PO BID 30 Days #60 cap traZODone HCL [Desyrel] 100 mg PO HS PRN 30 Days #30 tab PRN Reason: Insomnia Nicotine 14Mg/24Hr Patch [Habitrol] 1 patch TRANSDERM DAILY 14 Days #14 patch QUEtiapine FUMARATE [SEROquel] 300 mg PO HS 30 Days #30 tablet Continue HYDROcodone/APAP 5-325MG [[place] 5-325] 1 tab PO BID PRN PRN Reason: lumbago Meloxicam [Mobic] 15 mg PO DAILY Multivitamins, Thera [Multivitamin (formulary)] 1 each PO DAILY 30 Days #30 tab Thiamine [Vitamin B-1] 100 mg PO DAILY 30 Days #30 tab Gabapentin [Neurontin] 800 mg PO TID 15 Days #45 tablet Mirtazapine [Remeron] 15 mg PO HS 30 Days #30 tab Discontinued ARIPiprazole [Abilify] 10 mg PO DAILY 30 Days #30 tab Nicotine 14Mg/24Hr Patch [Habitrol] 1 patch TRANSDERM DAILY 30 Days #30 patch LORazepam [Ativan] 0.5 mg PO DAILY PRN PRN Reason: Anxiety Discharge Medication List HYDROcodone/APAP 5-325MG [[place] 5-325] 1 tab PO BID PRN 09/18/22 [History] Meloxicam [Mobic] 15 mg PO DAILY 09/18/22 [History] Gabapentin [Neurontin] 800 mg PO TID 15 Days #45 tablet 09/20/22 [Rx] Multivitamins, Thera [Multivitamin (formulary)] 1 each PO DAILY 30 Days #30 tab 09/20/22 [Rx] Thiamine [Vitamin B-1] 100 mg PO DAILY 30 Days #30 tab 09/20/22 [Rx] DULoxetine HCL [Cymbalta] 60 mg PO BID 30 Days #60 cap 11/03/23 [Rx] Mirtazapine [Remeron] 15 mg PO HS 30 Days #30 tab 11/03/23 [Rx] Nicotine 14Mg/24Hr Patch [Habitrol] 1 patch TRANSDERM DAILY 14 Days #14 patch 11/03/23 [Rx] Pantoprazole [Protonix] 40 mg PO AC-BRKFST 30 Days #30 tab 11/03/23 [Rx] QUEtiapine FUMARATE [SEROquel] 300 mg PO HS 30 Days #30 tablet 11/03/23 [Rx] traZODone HCL [Desyrel] 100 mg PO HS PRN 30 Days #30 tab 11/03/23 [Rx] Follow up Appointment(s)/Referral(s): [facility] [Outside] - 11/05/23 12:00 pm (11/04@ 12pm with Mariana Rios 11/06@ 10am with Anil Sparrow-Group/class Dual Recovery Anonymous 11/13@ 10am with Anil Black/class Dual Recovery Anonymous 11/16@ 11am with Mariana Rogers NP) Miguel Case MD [Primary Care Provider] - 1-2 days Patient Instructions/Handouts: How to Stop Smoking (DC), Depression (GEN), Anxiety (GEN) Activity/Diet/Wound Care/Special Instructions: Avoid the use of street drugs and alcohol. Take all medications as prescribed. When you are in need of refills on your medications, please contact your medical provider and/or outpatient psychiatrist/provider to have this done. Please go to your scheduled outpatient appointment for aftercare treatment. If symptoms return or become worse, call the crisis line at and/or go to the nearest emergency room for evaluation. National Suicide Hotline 984 Discharge Disposition: HOME SELF-CARE
== END 2023-11-03 12:53 | disposition home or self-care (01) | DRG 885 ==
LOC: EC 20:56 → 3MHU 10-29 01:47
PROVIDERS: ADMIT Psychiatry & Neurology Psychiatry; ATTEND Psychiatry & Neurology Psychiatry
DX: F33.2 Major depressive disorder, recurrent severe without psychotic features (principal); R45.851 Suicidal ideations; E78.5 Hyperlipidemia, unspecified; F41.9 Anxiety disorder, unspecified; F17.200 Nicotine dependence, unspecified, uncomplicated; G89.29 Other chronic pain; G47.00 Insomnia, unspecified; Z96.653 Presence of artificial knee joint, bilateral; I25.2 Old myocardial infarction; Z79.1 Long term (current) use of non-steroidal anti-inflammatories (NSAID); Z79.899 Other long term (current) drug therapy; Z11.52 Encounter for screening for COVID-19
CPT/HCPCS: 36415; 80048; 80061; 80076; 80306; 80320; 81003; 82075; 83036; 84443; 85025; 87636; 93005; 99285

== ENCOUNTER 2023-11-18 19:27 | Inpatient (IN) | payer MEDICARE, MEDICAID ==
--- NOTE | 2023-11-18 21:01 | ED ---
General Adult HPI - General Source: patient Mode of arrival: ambulatory Limitations: no limitations <Burke Blanc - Last Filed: 12/02/23 10:29> <Deyanira Hurtado - Last Filed: 12/02/23 23:23> - General Chief complaint: Psychiatric Symptoms Stated complaint: Suicidal Time Seen by Provider: 11/18/23 20:55 - History of Present Illness Initial comments: Quick note 63-year-old male presenting to the ED for a chief complaint of suicidal ideations. Patient reports history of manic depression. Takes medications for this which he has been taking as prescribed. States today he had a nervous breakdown and has had some increasing suicidal ideations. States that he planned to jump off a bridge for jump in front of a train however came here instead for help (Burke Blanc) - Related Data Home Medications Medication Instructions Recorded Confirmed Meloxicam [Mobic] 15 mg PO DAILY 09/18/22 11/19/23 Previous Rx's Medication Instructions Recorded Gabapentin [Neurontin] 800 mg PO TID 15 Days #45 tablet 09/20/22 Thiamine [Vitamin B-1] 100 mg PO DAILY 30 Days #30 tab 09/20/22 DULoxetine HCL [Cymbalta] 60 mg PO BID 30 Days #60 cap 11/03/23 Mirtazapine [Remeron] 15 mg PO HS 30 Days #30 tab 11/03/23 Nicotine 14Mg/24Hr Patch [Habitrol] 1 patch TRANSDERM DAILY 14 Days 11/03/23 #14 patch Pantoprazole [Protonix] 40 mg PO AC-BRKFST 30 Days #30 tab 11/03/23 QUEtiapine FUMARATE [SEROquel] 300 mg PO HS 30 Days #30 tablet 11/03/23 traZODone HCL [Desyrel] 100 mg PO HS PRN 30 Days #30 tab 11/03/23 Allergies Allergy/AdvReac Type Severity Reaction Status Date / Time No Known Allergies Allergy Verified 11/18/23 20:08 Review of Systems ROS Other: All systems not noted in ROS Statement are negative. <Burke Blanc - Last Filed: 12/02/23 10:29> ROS Other: All systems not noted in ROS Statement are negative. <Deyanira Hurtado - Last Filed: 12/02/23 23:23> ROS Statement: Those systems with pertinent positive or pertinent negative responses have been documented in the HPI. Past Medical History Past Medical History: Coronary Artery Disease (CAD), CVA/TIA, Hyperlipidemia, Myocardial Infarction (NE), Pneumonia Additional Past Medical History / Comment(s): pneumonia, closed head injury, neuropathy Last Myocardial Infarction Date:: unknown History of Any Multi-Drug Resistant Organisms: None Reported Past Surgical History: Heart Catheterization With Stent, Joint Replacement, Orthopedic Surgery Additional Past Surgical History / Comment(s): esophogeal surgery, left femur and left hip with rods, bilateral knee replacement Past Anesthesia/Blood Transfusion Reactions: No Reported Reaction Date of Last Stent Placement:: unknown Past Psychological History: Anxiety, Depression Smoking Status: Current every day smoker Past Alcohol Use History: Occasional Past Drug Use History: Marijuana - Past Family History Mother History Unknown: Yes <Burke Blanc - Last Filed: 12/02/23 10:29> General Exam Limitations: no limitations <Burke Blanc - Last Filed: 12/02/23 10:29> General appearance: alert, in no apparent distress Head exam: Present: atraumatic, normocephalic, normal inspection Eye exam: Present: normal appearance, PERRL, EOMI. Absent: scleral icterus, conjunctival injection, periorbital swelling ENT exam: Present: normal exam, mucous membranes moist Neck exam: Present: normal inspection. Absent: tenderness, meningismus, lymphadenopathy Respiratory exam: Present: normal lung sounds bilaterally. Absent: respiratory distress, wheezes, rales, rhonchi, stridor Cardiovascular Exam: Present: regular rate, normal rhythm, normal heart sounds. Absent: systolic murmur, diastolic murmur, rubs, gallop, clicks GI/Abdominal exam: Present: soft, normal bowel sounds. Absent: distended, tenderness, guarding, rebound, rigid Extremities exam: Present: normal inspection, full ROM, normal capillary refill. Absent: tenderness, pedal edema, joint swelling, calf tenderness Back exam: Present: normal inspection Neurological exam: Present: alert, oriented X3, CN II-XII intact Psychiatric exam: Present: depressed Skin exam: Present: warm, dry, intact, normal color. Absent: rash <Deyanira Hurtado - Last Filed: 12/02/23 23:23> - General Exam Comments Initial Comments: Visual Physical Exam Vital signs reviewed General: Well-appearing, nontoxic, no acute distress. Head: Normocephalic, atraumatic Eyes: PERRLA, EOMI ENT: Airway patent Chest: Nonlabored breathing Skin: No visual rash, normal skin tone Neuro: Alert and oriented 3 Musculoskeletal: No gross abnormalities (Burke Blanc) Course Vital Signs 11/18/23 20:04 Temperature 98.1 F Pulse Rate 53 L Respiratory 16 Rate Blood Pressure 119/66 O2 Sat by Pulse 97 Oximetry Medical Decision Making - Lab Data Result diagrams: 11/19/23 11:16 11/19/23 11:16 <Burke Blanc - Last Filed: 12/02/23 10:29> - Lab Data Result diagrams: 11/19/23 11:16 11/19/23 11:16 <Deyanira Hurtado - Last Filed: 12/02/23 23:23> - Medical Decision Making Quicknote portion performed. Signed Burke Blanc PA-C Verbally signed, Burke Blanc PA-C. (Burke Blanc) Was pt. sent in by a medical professional or institution (, PA, [facility], urgent care, hospital, or detention...) When possible be specific @ -No Did you speak to anyone other than the patient for history (EMS, parent, family, police, friend...)? What history was obtained from this source @ -No Did you review nursing and triage notes (agree or disagree)? Why? @ -I reviewed and agree with nursing and triage notes Were old charts reviewed (outside hosp., previous admission, EMS record, old EKG, old radiological studies, urgent care reports/EKG's, detention records)? Report findings @ -No old charts were reviewed Differential Diagnosis (chest pain, altered mental status, abdominal pain women, abdominal pain men, vaginal bleeding, weakness, fever, dyspnea, syncope, headache, dizziness, GI bleed, back pain, seizure, CVA, palpatations, mental health, musculoskeletal)? @ -Differential Mental Health Depression, anxiety, bipolar, psychosis, schizophrenia, borderline personality, situational depression, adjustment disorder, behavioral disorder, brain tumor, malingering, substance abuse, encephalopathy, medication reaction, dementia, hypothyroidism, degenerative neurologic disorder, lupus.... This is not meant to be all-inclusive list EKG interpreted by me (3pts min.). @ -Not done X-rays interpreted by me (1pt min.). @ -None done CT interpreted by me (1pt min.). @ -None done U/S interpreted by me (1pt. min.). @ -None done What testing was considered but not performed or refused? (CT, X-rays, U/S, labs)? Why? @ -None What meds were considered but not given or refused? Why? @ -None Did you discuss the management of the patient with other professionals (ariana saul i.e. , PA, [facility], lab, RT, psych nurse, licensed social worker, per diem rn, teacher, quality officer, major case detective)? Give summary @ -EPS who does evaluate the patient Was smoking cessation discussed for >3mins.? @ -No Was critical care preformed (if so, how long)? @ -No Were there social determinants of health that impacted care today? How? (Homelessness, low income, unemployed, alcoholism, drug addiction, transportation, low edu. Level, literacy, decrease access to med. care, residential, rehab)? @ -No Was there de-escalation of care discussed even if they declined (Discuss DNR or withdrawal of care, Hospice)? DNR status @ -No What co-morbidities impacted this encounter? (DM, HTN, Smoking, COPD, CAD, Cancer, CVA, ARF, Chemo, Hep., AIDS, mental health diagnosis, sleep apnea, morbid obesity)? @ -Depression Was patient admitted / discharged? Hospital course, mention meds given and route, prescriptions, significant lab abnormalities, going to OR and other pertinent info. @ -Patient evaluated by EPS and does require admission Undiagnosed new problem with uncertain prognosis? @ -No Drug Therapy requiring intensive monitoring for toxicity (Heparin, Nitro, Insulin, Cardizem)? @ -No Were any procedures done? @ -No Diagnosis/symptom? @ -Acute depression Acute, or Chronic, or Acute on Chronic? @ -Acute Uncomplicated (without systemic symptoms) or Complicated (systemic symptoms)? @ -Complicated Side effects of treatment? @ -No Exacerbation, Progression, or Severe Exacerbation? @ -No Poses a threat to life or bodily function? How? (Chest pain, USA, NE, pneumonia, PE, COPD, DKA, ARF, appy, cholecystitis, CVA, Diverticulitis, Homicidal, Suicidal, threat to staff... and all critical care pts) @ -Yes as patient is suicidal (Deyanira Hurtado) - Lab Data Lab Results 11/18/23 11/18/23 Range/Units 23:27 23:27 Urine Color Colorless Urine Appearance Clear (Clear) Urine pH 5.5 (5.0-8.0) Ur Specific [place] 1.007 (1.001-1.035) Urine Protein Negative (Negative) Urine Glucose (UA) Negative (Negative) Urine Ketones Negative (Negative) Urine Blood Negative (Negative) Urine Nitrite Negative (Negative) Urine Bilirubin Negative (Negative) Urine Urobilinogen <2.0 (<2.0) mg/dL Ur Leukocyte Esterase Negative (Negative) Urine Opiates Screen Detected H (NotDetected) Ur Oxycodone Screen Not Detected (NotDetected) Urine Methadone Screen Not Detected (NotDetected) Ur Barbiturates Screen Not Detected (NotDetected) U Tricyclic Antidepress Not Detected (NotDetected) Ur Phencyclidine Scrn Not Detected (NotDetected) Ur Amphetamines Screen Not Detected (NotDetected) U Methamphetamines Scrn Not Detected (NotDetected) U Benzodiazepines Scrn Not Detected (NotDetected) Urine Cocaine Screen Not Detected (NotDetected) U Marijuana (THC) Screen Not Detected (NotDetected) Disposition <Burke Blanc - Last Filed: 12/02/23 10:29> Is patient prescribed a controlled substance at d/c from ED?: No <Deyanira Hurtado - Last Filed: 12/02/23 23:23> Clinical Impression: Depression Disposition: ADMITTED IP TO THIS [facility] Condition: Stable
[2023-11-18] MEDS: HYDROcodone/APAP 5-325MG 1 EACH TAB PO SCH (23:32)
[2023-11-18] MEDS: GABAPENTIN 400 MG CAP PO SCH (23:34)
[2023-11-19 00:17] LABS: Amphetamine Screen,Urine Not Detected (NotDetected); Barbiturate Screen,Urine Not Detected (NotDetected); Benzodiazepines Screen,Urine Not Detected (NotDetected); Cocaine Screen,Urine Not Detected (NotDetected); Methadone Screen, Urine Not Detected (NotDetected); Opiate Screen,Urine Detected (NotDetected); Oxycodone Screen, Urine Not Detected (NotDetected); Phencyclidine Screen,Urine Not Detected (NotDetected); Tricyclic Antidepressant,Urine Not Detected (NotDetected); Urn Cannabinoid Scrn Not Detected (NotDetected)
[2023-11-19] MEDS ORDERED: MAG HYDROX/AL HYDROX/SIMETH 355 ML BOTTLE PO PRN (01:00)
[2023-11-19] MEDS ORDERED: MAGNESIUM HYDROXIDE 2,400 MG/30 ML CUP PO PRN (01:00)
[2023-11-19] MEDS: MIRTAZAPINE 15 MG TAB PO SCH (01:32)
[2023-11-19] MEDS: QUEtiapine 100 MG TAB PO SCH (01:32)
[2023-11-19] MEDS: traZODone HCL 100 MG TAB PO PRN (01:33)
[2023-11-19 07:38] LABS: Appearance,Urine Clear (Clear); Bilirubin,Urine Negative (Negative); Blood,Urine Negative (Negative); Color,Urine Colorless; Glucose,Urine (UA) Negative (Negative); Ketones,Urine Negative (Negative); Leukocyte Esterase,Urine Negative (Negative); Nitrite,Urine Negative (Negative); PH, Urine 5.5 (5.0-8.0); Protein,Urine Negative (Negative); Specific Gravity,Urine 1.007 (1.001-1.035); Urobilinogen,Urine <2.0 mg/dL (<2.0)
[2023-11-19] MEDS: NICOTINE 14MG/24HR PATCH TRANSDERM SCH (08:54)
[2023-11-19] MEDS: MELOXICAM 7.5 MG TAB PO SCH (08:54)
[2023-11-19] MEDS: MULTIVITAMINS, THERA 1 EACH TAB PO SCH (08:55)
[2023-11-19] MEDS: THIAMINE 100 MG TAB PO SCH (08:55)
[2023-11-19] MEDS: GABAPENTIN 400 MG CAP PO SCH (08:55)
[2023-11-19] MEDS: PANTOPRAZOLE 40 MG TABLET PO SCH (08:55)
[2023-11-19] MEDS: DULoxetine HCL 60 MG CAPSULE.DR PO SCH (08:55)
[2023-11-19] MEDS: HYDROcodone/APAP 5-325MG 1 EACH TAB PO SCH (08:56)
[2023-11-19] MEDS ORDERED: NICOTINE 21MG/24HR PATCH TRANSDERM SCH (09:00)
[2023-11-19] MEDS ORDERED: HYDROcodone/APAP 5-325MG 1 EACH TAB PO SCH (09:00)
[2023-11-19 12:10] LABS: ALT 13 U/L (4-49); AST 23 U/L (17-59); African American GFR (CKD) >90 (>60 ml/min/1.73 sqM); Albumin 3.6 g/dL (3.5-5.0); Alkaline Phosphatase 121 U/L (38-126); Anion Gap 2 mmol/L; Blood Urea Nitrogen 11 mg/dL (9-20); Calcium 9.6 mg/dL (8.4-10.2); Carbon Dioxide 28 mmol/L (22-30); Chloride 109 mmol/L (98-107); Glucose 82 mg/dL (74-99); Non-African American GFR(CKD) >90 (>60 ml/min/1.73 sqM); Potassium 4.5 mmol/L (3.5-5.1); Sodium 139 mmol/L (137-145); Total Bilirubin 0.2 mg/dL (0.2-1.3); Total Protein 5.8 g/dL (6.3-8.2)
--- NOTE | 2023-11-19 12:31 | P.HP ---
Psychiatric H&P - . H&P Date: 11/19/23 History & Physical: Allergies Allergy/AdvReac Type Severity Reaction Status Date / Time No Known Allergies Allergy Verified 11/18/23 20:08 Vital Signs Temp 97.7 F 11/19/23 02:11 Pulse 58 L 11/19/23 02:11 Resp 18 11/19/23 02:11 BP 118/60 11/19/23 02:11 Pulse Ox 95 11/19/23 02:11 FiO2 Intake & Output 11/18/23 11/19/23 11/19/23 18:59 06:59 18:59 Weight 67.1 kg Laboratory Last Values Sodium 139 mmol/L (137-145) 11/19/23 11:16 Potassium 4.5 mmol/L (3.5-5.1) 11/19/23 11:16 Chloride 109 mmol/L (98-107) H 11/19/23 11:16 Carbon Dioxide 28 mmol/L (22-30) 11/19/23 11:16 Anion Gap 2 mmol/L 11/19/23 11:16 BUN 11 mg/dL (9-20) 11/19/23 11:16 Creatinine 0.65 mg/dL (0.66-1.25) L 11/19/23 11:16 Est GFR (CKD-EPI)AfAm >90 (>60 ml/min/1.73 sqM) 11/19/23 11:16 Est GFR (CKD-EPI)NonAf >90 (>60 ml/min/1.73 sqM) 11/19/23 11:16 Glucose 82 mg/dL (74-99) 11/19/23 11:16 Calcium 9.6 mg/dL (8.4-10.2) 11/19/23 11:16 Total Bilirubin 0.2 mg/dL (0.2-1.3) 11/19/23 11:16 AST 23 U/L (17-59) 11/19/23 11:16 ALT 13 U/L (4-49) 11/19/23 11:16 Alkaline Phosphatase 121 U/L (38-126) 11/19/23 11:16 Total Protein 5.8 g/dL (6.3-8.2) L 11/19/23 11:16 Albumin 3.6 g/dL (3.5-5.0) 11/19/23 11:16 Urine Color Colorless 11/18/23 23:27 Urine Appearance Clear (Clear) 11/18/23 23:27 Urine pH 5.5 (5.0-8.0) 11/18/23 23:27 Ur Specific [place] 1.007 (1.001-1.035) 11/18/23 23:27 Urine Protein Negative (Negative) 11/18/23 23:27 Urine Glucose (UA) Negative (Negative) 11/18/23 23:27 Urine Ketones Negative (Negative) 11/18/23 23:27 Urine Blood Negative (Negative) 11/18/23 23:27 Urine Nitrite Negative (Negative) 11/18/23 23:27 Urine Bilirubin Negative (Negative) 11/18/23 23:27 Urine Urobilinogen <2.0 mg/dL (<2.0) 11/18/23 23:27 Ur Leukocyte Esterase Negative (Negative) 11/18/23 23:27 Urine Opiates Screen Detected (NotDetected) H 11/18/23 23:27 Ur Oxycodone Screen Not Detected (NotDetected) 11/18/23 23:27 Urine Methadone Screen Not Detected (NotDetected) 11/18/23 23:27 Ur Barbiturates Screen Not Detected (NotDetected) 11/18/23 23:27 U Tricyclic Antidepress Not Detected (NotDetected) 11/18/23 23:27 Ur Phencyclidine Scrn Not Detected (NotDetected) 11/18/23 23:27 Ur Amphetamines Screen Not Detected (NotDetected) 11/18/23 23:27 U Methamphetamines Scrn Not Detected (NotDetected) 11/18/23 23:27 U Benzodiazepines Scrn Not Detected (NotDetected) 11/18/23 23:27 Urine Cocaine Screen Not Detected (NotDetected) 11/18/23 23:27 U Marijuana (THC) Screen Not Detected (NotDetected) 11/18/23 23:27 SARS-CoV-2 (PCR) Not Detected (Not Detectd) 11/19/23 23:55 11/19/23 12:30 Psychiatric Evaluation Identifying Data: Mr. Monroe is 63 years old, single, white male, who lives in [place], [place] in a senior citizens apartment. Chief Complaint: Depressed and scared. History of Psychiatric Illness- The patient noted that he was discharged 2 weeks ago from here but stated feeling very depressed, fearful and suicidal in past 2-3 days. The patient noted that he did not feel safe at home. The denied any other symptoms. He noted that he is feeling pretty good today. He was compliant with medications. The patient does not know why he got so depressed. He stated that he was talking to his and daughter and feeling pretty good. He noted that the daughter delivered fifth grandchild on November 09. He further indicated that he would be off probation on December 09. he reported no side effects of medications. Past Psychiatric History: The patient noted that he first started seeking help for depression around age 48. He was hospitalized to psychiatric hospital for depression and suicidal ideations. He had had 5-7 admissions since then. He has had 3-4 admissions to this hospital since 2019. He indicated that he has been going to [facility] since his first admission on a regular basis. His last admission was 2 weeks ago here. Leading questions: The patient admitted to Depression and Anxiety. Denied SI or HI. Denied symptoms consistent with psychosis Drugs and alcohol history: Alcohol dependence. Claims to be sober for last one year. He has not used Marijuana for 2 years. He denies of abusing Cocaine, Opioids and stimulants. Tobacco use: A pack a day. Past Medical history: As per EMR. Family History of Psychiatric Disorder: One sister suffered from depression. No h/o suicide or homicide. Social History and Family History: The patient was born and raised in [place], [place]. He grew-up with 4 siblings. He dropped out in 9th grade. 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 He is on SSD. He was twice. He has two children from first marriage. OTC: Tylenol Allergies: The patient denied. Objective: MSE: Alert and attentive. Orientation times three Dressed and Groomed: Appropriately. Pleasant and cooperative. Psychomotor Activity: Normal. Speech: Normal in tone, quality, and quantity. Mood: I am feeling fine today Affect: Approriate. SI or HI: None. Perceptual disturbance: None. Thought Content: No paranoia or other delusional thinking noted. Thought Process: Normal. Cognition: Intact Judgment and Insight: Poor. AIMS: Normal Labs: Available labs reviewed. Diagnosis: Major depressive disorder, severe, recurrent. Plan and Recommendations: Continue current Medications. Monitor MS and side effects of medications and adjust medications accordingly. Provide supportive psychotherapy and psychoeducation. The patient provided psychoeducation. Te patient provided with substance abuse counselling and advised to attend AA/NA Smoke cessation therapy. The patient to attend mchugh [facility]. Medication Consent with explanation of risk/benefits and side effects: Explained and obtained.
[2023-11-19 12:36] LABS: Basophils % (A) 0 %; Eosinophils # (A) 0.1 k/uL (0-0.7); Eosinophils % (A) 1 %; HCT 35.9 % (39.0-53.0); HGB 11.5 gm/dL (13.0-17.5); Hypochromasia Slight; Lymphocytes # (A) 1.3 k/uL (1.0-4.8); Lymphocytes % (A) 16 %; MCH 30.6 pg (25.0-35.0); MCHC 31.9 g/dL (31.0-37.0); MCV 95.7 fL (80.0-100.0); Mean Platelet Volume 8.6; Monocytes # (A) 0.5 k/uL (0-1.0); Monocytes % (A) 6 %; Neutrophils # (A) 5.8 k/uL (1.3-7.7); Neutrophils % (A) 75 %; Platelet Count 214 k/uL (150-450); RBC 3.76 m/uL (4.30-5.90); RDW 14.5 % (11.5-15.5); WBC 7.8 k/uL (3.8-10.6)
--- NOTE | 2023-11-20 03:16 | CONS ---
CONSULTATION CHIEF COMPLAINT: Major depression with suicidal thoughts. HISTORY OF PRESENT ILLNESS: This 63-year-old white male presented through the emergency room, expressing suicidal thoughts and was admitted. He has a long-standing psych history and apparently had been on his medications. REVIEW OF SYSTEMS: All he can complain about is wanting his Vicodin. He denies headaches, chest pain, abdominal pain, etc. The rest of his history can be found in his admitting summary. PHYSICAL EXAMINATION: VITAL SIGNS: Normal. HEENT: Head, ears, eyes, nose, and mouth are normal. CHEST: Clear. CARDIAC: Normal. ABDOMEN: Soft, nontender. EXTREMITIES: Normal. IMPRESSION: Major depression with suicidal thoughts. RECOMMENDATIONS: None. I did not order his opioid. MMODL / IJN: [id number] /
--- NOTE | 2023-11-20 12:38 | P.PN ---
Progress Note - Text Progress Note Date: 11/20/23 Follow-up Mediation Review Chief Complaint: I was told that I have colon ca. Subjective: The patient noted he saw Dr. Case yesterday and informed him to make sure the recommends continuing [place]. The patient noted that he has appointments for MRI and Cardiology. He is scheduling them for Friday. He noted feeling the same. He has been up and active on the mchugh. He reported no side effects. The patient has been attending the groups. The participation is good. The interaction with staff and peers is good. The patient is not / compliant with treatment recommendations. Leading questions: The patient admitted to Depression and Anxiety. Denied SI or HI. Denied symptoms consistent with psychosis Sleep and Appetite: Fair. Change in family/ living/job/financial/daily routine: No change. Change in medical condition: No change. Change in medications: No change. Side effects from Medications: None. Allergies: No change. Objective- MSE: Alert and attentive. Orientation times three. Dressed and Groomed: Appropriately. Pleasant and cooperative. Psychomotor Activity: Normal. Speech: Normal in tone, quality, and quantity. Mood: Depressed and anxious. Affect: Consistent with mood. SI or HI: None. Perceptual disturbance: None. Thought Content: No paranoia or other delusional thinking noted. Thought Process: Normal. Cognition: Intact Judgment and Insight: Poor. AIMS: Normal. Labs: No new labs. Diagnosis: No change. Plan and Recommendations: Continue current Medications. Monitor MS and side effects of medications and adjust medications accordingly. Provide supportive psychotherapy. The patient provided psychoeducation and advised The patient to attend mchugh activities. CBC with Diff, CMP, TSH, Lipid Profile, HbA1c, EKG. Medication Consent with explanation of risk/benefits and side effects: Explained and obtained.
[2023-11-20] MEDS: ACETAMINOPHEN TAB 325 MG TAB PO PRN (18:59)
--- NOTE | 2023-11-20 22:21 | PN ---
PROGRESS NOTE CHIEF COMPLAINT: Depression and suicidal thoughts with back pain. HISTORY OF PRESENT ILLNESS: The patient has to have his narcotic analgesics increased. When he was admitted, I explained that all medications were prescribed by the psychiatrist on the psychiatric unit and then I could not prescribe any mood altering drugs. Apparently, psychiatry has ordered 5 mg of his opioid and I would not recommend increasing it. IMPRESSION: 1. Back pain. 2. Depression. 3. Suicidal personality. PLAN: Hold opioid dose prescribed by psychiatrist. GRACE / ERIK: [id number] /
--- NOTE | 2023-11-21 12:45 | P.PN ---
Progress Note - Text Progress Note Date: 11/21/23 Follow-up Mediation Review Chief Complaint: I need to be discharged on Friday. Subjective: The patient noted he has nothing to talk about. In the morning group he expressed anger for not getting higher dose for narcotic- analgesic he had requested. Dr. Case did not want to approve the increased dose. He has been continued on the dose he was started at the admission day. He is being informed that he will have to get his prescription from his PCP for narcotics after discharge. He wont be discharged on this narcotic-analgesics. He noted feeling the same. He has been up and active on the mchugh. He reported no side effects. The patient has been attending the groups. The participation is good. The interaction with staff and peers is good. The patient is compliant with treatment recommendations. Leading questions: The patient admitted to Depression and Anxiety. Denied SI or HI. Denied symptoms consistent with psychosis Sleep and Appetite: Fair. Change in family/ living/job/financial/daily routine: No change. Change in medical condition: No change. Change in medications: No change. Side effects from Medications: None. Allergies: No change. Objective- MSE: Alert and attentive. Orientation times three. Dressed and Groomed: Appropriately. Pleasant and cooperative. Psychomotor Activity: Normal. Speech: Normal in tone, quality, and quantity. Mood: Depressed and anxious. Affect: Consistent with mood. SI or HI: None. Perceptual disturbance: None. Thought Content: No paranoia or other delusional thinking noted. Thought Process: Normal. Cognition: Intact Judgment and Insight: Poor. AIMS: Normal. Labs: No new labs. Diagnosis: No change. Plan and Recommendations: Continue current Medications. Monitor MS and side effects of medications and adjust medications accordingly. Provide supportive psychotherapy. The patient provided psychoeducation and advised The patient to attend mchugh activities. Medication Consent with explanation of risk/benefits and side effects: Explained and obtained.
[2023-11-21] MEDS: IBUPROFEN 600 MG TAB PO PRN (13:46)
--- NOTE | 2023-11-22 12:17 | P.PN ---
Subjective Progress Note Date: 11/22/23 Patient Name: Sandeep Monroe Date of : 1960 Patient Status: Inpatient Attending Provider: Hossein Adam Date: 11/22/23 Subjective: Data: The patient was seen and chart was reviewed and case discussed with nursing staff Patient was friendly and cooperative Patient reports that he is feeling a lot better and that he is scheduled to possibly go home by Friday He states that he has been here for about 4 times in different hospitals Patient reports that he used to be a fork truck operator by profession and used to enjoy just not having to deal with people in general He states that he had a nervous breakdown and had to be hospitalized but is doing much better now he did not go into any specifics about his symptomatology The patient has been attending the groups. The participation is good. The interaction with staff and peers is good. The patient is compliant with treatment recommendations. Sleep and Appetite: Fair. Change in family/ living/job/financial/daily routine: No change. Change in medical condition: No change. Change in medications: No change. Side effects from Medications: None. Allergies: No change. MSE: Alert and attentive. Orientation times three. Dressed and Groomed: Appropriately. Pleasant and cooperative. Psychomotor Activity: Normal. Speech: Normal in tone, quality, and quantity. Mood: Depressed and anxious. Affect: Consistent with mood. SI or HI: None. Perceptual disturbance: None. Thought Content: No paranoia or other delusional thinking noted. Thought Process: Normal. Cognition: Intact Judgment and Insight: Poor. AIMS: Normal. Labs: No new labs. Diagnosis: Major depressive disorder recurrent improved Plan and Recommendations: Continue current Medications. Monitor MS and side effects of medications and adjust medications accordingly. Provide supportive psychotherapy. The patient provided psychoeducation and advised The patient to attend mchugh activities. Medication Consent with explanation of risk/benefits and side effects: Active Medications Generic Name Dose Route Start Last Admin Trade Name Freq PRN Reason Stop Dose Admin Acetaminophen 650 mg 11/19/23 01:00 11/20/23 18:59 Acetaminophen Tab 325 Mg Tab PO 650 mg Q4HR PRN Administration Mild Pain (Scale 1 to 3) Hydrocodone Bitart/Acetaminophen 1 each 11/19/23 09:00 11/22/23 08:55 Hydrocodone/Apap 5-325mg 1 Each Tab PO 1 each BID SHAUN Administration Al Hydroxide/Mg Hydroxide 30 ml 11/19/23 01:00 Mag Hydrox/Al Hydrox/Simeth 355 Ml Bottle PO Q4HR PRN GI Upset Duloxetine HCl 60 mg 11/19/23 09:00 11/22/23 08:55 Duloxetine Hcl 60 Mg Capsule.Dr PO 60 mg BID SHAUN Administration Gabapentin 800 mg 11/19/23 09:00 11/22/23 08:54 Gabapentin 400 Mg Cap PO 800 mg TID SHAUN Administration Ibuprofen 600 mg 11/19/23 01:00 11/21/23 13:46 Ibuprofen 600 Mg Tab PO 600 mg Q6HR PRN Administration Moderate Pain (Scale 4 to 6) Magnesium Hydroxide 2,400 mg 11/19/23 01:00 Magnesium Hydroxide 2,400 Mg/30 Ml Cup PO DAILY PRN Constipation Meloxicam 15 mg 11/19/23 09:00 11/22/23 08:54 Meloxicam 7.5 Mg Tab PO 15 mg DAILY SHAUN Administration Mirtazapine 15 mg 11/19/23 01:30 11/21/23 22:20 Mirtazapine 15 Mg Tab PO 15 mg HS SHAUN Administration Multivitamins 1 each 11/19/23 09:00 11/22/23 08:54 Multivitamins, Thera 1 Each Tab PO 1 each DAILY SHAUN Administration Nicotine 1 patch 11/19/23 09:00 11/22/23 08:55 Nicotine 14mg/24hr Patch TRANSDERM 1 patch DAILY SHAUN Administration Pantoprazole Sodium 40 mg 11/19/23 07:30 11/22/23 08:54 Pantoprazole 40 Mg Tablet PO 40 mg AC-BRKFST SHAUN Administration Quetiapine Fumarate 300 mg 11/19/23 01:30 11/21/23 22:20 Quetiapine 100 Mg Tab PO 300 mg HS SHAUN Administration Thiamine HCl 100 mg 11/19/23 09:00 11/22/23 08:54 Thiamine 100 Mg Tab PO 100 mg DAILY SHAUN Administration Trazodone HCl 100 mg 11/19/23 01:05 11/19/23 01:33 Trazodone Hcl 100 Mg Tab PO 100 mg HS PRN Administration Insomnia Sam Robert MD Objective - Vital Signs Vital signs: Vital Signs Temp 97.6 F 11/22/23 06:00 Pulse 64 11/22/23 06:00 Resp 20 11/22/23 06:00 BP 130/70 11/22/23 06:00 Pulse Ox 98 11/22/23 06:00 FiO2 - Labs CBC & Chem 7: 11/19/23 11:16 11/19/23 11:16
[2023-11-23 07:15] VITALS: RESP 16
--- NOTE | 2023-11-23 08:58 | P.PN ---
Subjective Progress Note Date: 11/23/23 Patient Name: Sandeep Monroe Date of : 1960 Patient Status: Inpatient Attending Provider: Hossein Adam Date: 11/23/23 Subjective: Data: The patient was seen and chart was reviewed and case discussed with nursing staff Patient was friendly and cooperative Patient states that he slept very well He states that he started to feel much more positive and is not experiencing any depression He states that his anxiety sometimes comes and goes but overall he is feeling better Patient reports that he is feeling a lot better and that he is scheduled to possibly go home by Friday He states that he has been here for about 4 times in different hospitals Patient reports that he used to be a tanker truck driver by profession and used to enjoy just not having to deal with people in general He states that he had a nervous breakdown and had to be hospitalized but is doing much better now he did not go into any specifics about his symptomatology The patient has been attending the groups. The participation is good. The interaction with staff and peers is good. The patient is compliant with treatment recommendations. Sleep and Appetite: Fair. Change in family/ living/job/financial/daily routine: No change. Change in medical condition: No change. Change in medications: No change. Side effects from Medications: None. Allergies: No change. MSE: Alert and attentive. Orientation times three. Dressed and Groomed: Appropriately. Pleasant and cooperative. Psychomotor Activity: Normal. Speech: Normal in tone, quality, and quantity. Mood: Depressed and anxious. Affect: Consistent with mood. SI or HI: None. Perceptual disturbance: None. Thought Content: No paranoia or other delusional thinking noted. Thought Process: Normal. Cognition: Intact Judgment and Insight: Poor. AIMS: Normal. Labs: No new labs. Diagnosis: Major depressive disorder recurrent improved Plan and Recommendations: Continue current Medications. Monitor MS and side effects of medications and adjust medications accordingly. Provide supportive psychotherapy. The patient provided psychoeducation and advised The patient to attend mchugh activities. Medication Consent with explanation of risk/benefits and side effects: Active Medications Generic Name Dose Route Start Last Admin Trade Name Freq PRN Reason Stop Dose Admin Acetaminophen 650 mg 11/19/23 01:00 11/20/23 18:59 Acetaminophen Tab 325 Mg Tab PO 650 mg Q4HR PRN Administration Mild Pain (Scale 1 to 3) Hydrocodone Bitart/Acetaminophen 1 each 11/19/23 09:00 11/22/23 08:55 Hydrocodone/Apap 5-325mg 1 Each Tab PO 1 each BID SHAUN Administration Al Hydroxide/Mg Hydroxide 30 ml 11/19/23 01:00 Mag Hydrox/Al Hydrox/Simeth 355 Ml Bottle PO Q4HR PRN GI Upset Duloxetine HCl 60 mg 11/19/23 09:00 11/22/23 08:55 Duloxetine Hcl 60 Mg Capsule.Dr PO 60 mg BID SHAUN Administration Gabapentin 800 mg 11/19/23 09:00 11/22/23 08:54 Gabapentin 400 Mg Cap PO 800 mg TID SHAUN Administration Ibuprofen 600 mg 11/19/23 01:00 11/21/23 13:46 Ibuprofen 600 Mg Tab PO 600 mg Q6HR PRN Administration Moderate Pain (Scale 4 to 6) Magnesium Hydroxide 2,400 mg 11/19/23 01:00 Magnesium Hydroxide 2,400 Mg/30 Ml Cup PO DAILY PRN Constipation Meloxicam 15 mg 11/19/23 09:00 11/22/23 08:54 Meloxicam 7.5 Mg Tab PO 15 mg DAILY SHAUN Administration Mirtazapine 15 mg 11/19/23 01:30 11/21/23 22:20 Mirtazapine 15 Mg Tab PO 15 mg HS SHAUN Administration Multivitamins 1 each 11/19/23 09:00 11/22/23 08:54 Multivitamins, Thera 1 Each Tab PO 1 each DAILY SHAUN Administration Nicotine 1 patch 11/19/23 09:00 11/22/23 08:55 Nicotine 14mg/24hr Patch TRANSDERM 1 patch DAILY SHAUN Administration Pantoprazole Sodium 40 mg 11/19/23 07:30 11/22/23 08:54 Pantoprazole 40 Mg Tablet PO 40 mg AC-BRKFST SHAUN Administration Quetiapine Fumarate 300 mg 11/19/23 01:30 11/21/23 22:20 Quetiapine 100 Mg Tab PO 300 mg HS SHAUN Administration Thiamine HCl 100 mg 11/19/23 09:00 11/22/23 08:54 Thiamine 100 Mg Tab PO 100 mg DAILY SHAUN Administration Trazodone HCl 100 mg 11/19/23 01:05 11/19/23 01:33 Trazodone Hcl 100 Mg Tab PO 100 mg HS PRN Administration Insomnia Sam Yesica, MD Objective - Vital Signs Vital signs: Vital Signs Temp 97.7 F 11/23/23 06:31 Pulse 81 11/23/23 06:31 Resp 16 11/23/23 06:31 BP 137/75 11/23/23 06:31 Pulse Ox 97 11/23/23 06:31 FiO2 - Labs CBC & Chem 7: 11/19/23 11:16 11/19/23 11:16
[2023-11-24 07:18] VITALS: BP 129/75; PULSE 83; TEMP 98.5
--- NOTE | 2023-11-24 11:29 | P.DS ---
Providers Date of admission: 11/19/23 00:55 Expected date of discharge: 11/24/23 Attending physician: Hossein Adam MD Consults: 11/19/23 01:00 Consult Physician Routine Consulting Provider: Miguel Case Consult Reason/Comments: H&P for mental health admission Do you want consulting provider notified?: Yes, Notify in am Primary care physician: Miguel Case - Discharge Diagnosis(es) (1) Major depressive disorder, recurrent severe without psychotic features Current Visit: No Status: Acute Priority: High Hospital Course: Discharge Summary HPI: Identifying Data: Mr. Monroe is 63 years old, single, white male, who lives in [place], [place] in a senior citizens apartment. Chief Complaint: Depressed and scared. History of Psychiatric Illness- The patient noted that he was discharged 2 weeks ago from here but stated feeling very depressed, fearful and suicidal in past 2-3 days. The patient noted that he did not feel safe at home. The denied any other symptoms. He noted that he is feeling pretty good today. He was compliant with medications. The patient does not know why he got so depressed. He stated that he was talking to his and daughter and feeling pretty good. He noted that the daughter delivered fifth grandchild on November 09. He further indicated that he would be off probation on December 09. he reported no side effects of medications. Past Psychiatric History: The patient noted that he first started seeking help for depression around age 48. He was hospitalized to psychiatric hospital for depression and suicidal ideations. He had had 5-7 admissions since then. He has had 3-4 admissions to this hospital since 2019. He indicated that he has been going to [facility] since his first admission on a regular basis. His last admission was 2 weeks ago here. Leading questions: The patient admitted to Depression and Anxiety. Denied SI or HI. Denied symptoms consistent with psychosis Drugs and alcohol history: Alcohol dependence. Claims to be sober for last one year. He has not used Marijuana for 2 years. He denies of abusing Cocaine, Opioids and stimulants. Tobacco use: A pack a day. Past Medical history: As per EMR. Hospital Course: After admission, the patient was involved in pharmacotherapy, mchugh milieu, and individual psychodynamic psychotherapy. The patient was started Cymbalta, Neurontin, Remeron, Seroquel, and Trazodone. The dose was titrated to obtain the desire effects. The patient tolerated medications well without any side effects. The patient was also involved in mchugh activities. The patient attended the groups and participated well. The patient interacted with peers and staff well. The patient slowly started showing improvement. The hospital course was uneventful. The patient symptoms of depression, suicidal and homicidal ideations abated. The patient was stable to be discharged to out-patient care. The patient did not have any guns or weapons in possession at home. MSE: Alert and attentive. Orientation times three Dressed and Groomed: Appropriately. Pleasant and cooperative. Psychomotor Activity: Normal. Speech: Normal in tone, quality, and quantity. Mood: I am feeling fine today Affect: Appropriated. SI or HI: None. Perceptual disturbance: None. Thought Content: No paranoia or other delusional thinking noted. Thought Process: Normal. Cognition: Intact Judgment and Insight: Poor. AIMS: Normal Diagnosis: Major depressive disorder, severe, recurrent. Plan: The patient to be discharged today. The patient has attained good improvement since admission. He is stable to be followed as an outpatient. The patient is not suicidal or Homicidal. He does not pose any harm to self or others. The patient remains at a greater risk of self-harm or harm to others than general population on a chronic basis due to psychiatric illness and substance abuse. The patient will continue taking following medication post discharge. The importance of medication compliance and maintaining regular appointments at psychiatric out-pt and PCP clinic was explained and encouraged. The patient was also advised to seek alcohol counseling and attend AA/NA meetings. The understood and agreed with the recommendations. sheet metal worker helper to arrange for and conduct family meeting to ensure safety upon discharge and answer any questions. The social science teacher to arrange for patients follow-up appointments at [facility] for psychiatric care along with follow-up with PCP. The patient provided psychoeducation. Advised to call 911 or go to nearest ED or call this hospital in case of acute worsening of symptomatology, severe side effects or having suicidal, homicidal thoughts and feeling unsafe at home. Patient Condition at Discharge: Stable Plan - Discharge Summary Discharge Rx Participant: No New Discharge Prescriptions: Continue Pantoprazole [Protonix] 40 mg PO AC-BRKFST 30 Days #30 tab Meloxicam [Mobic] 15 mg PO DAILY Thiamine [Vitamin B-1] 100 mg PO DAILY 30 Days #30 tab Gabapentin [Neurontin] 800 mg PO TID 15 Days #45 tablet DULoxetine HCL [Cymbalta] 60 mg PO BID 30 Days #60 cap traZODone HCL [Desyrel] 100 mg PO HS PRN 30 Days #30 tab PRN Reason: Insomnia Nicotine 14Mg/24Hr Patch [Habitrol] 1 patch TRANSDERM DAILY 14 Days #14 patch QUEtiapine FUMARATE [SEROquel] 300 mg PO HS 30 Days #30 tablet Mirtazapine [Remeron] 15 mg PO HS 30 Days #30 tab Discontinued HYDROcodone/APAP 5-325MG [[place] 5-325] 1 tab PO BID PRN PRN Reason: lumbago Multivitamins, Thera [Multivitamin (formulary)] 1 each PO DAILY 30 Days #30 tab Discharge Medication List Meloxicam [Mobic] 15 mg PO DAILY 09/18/22 [History] Gabapentin [Neurontin] 800 mg PO TID 15 Days #45 tablet 09/20/22 [Rx] Thiamine [Vitamin B-1] 100 mg PO DAILY 30 Days #30 tab 09/20/22 [Rx] DULoxetine HCL [Cymbalta] 60 mg PO BID 30 Days #60 cap 11/03/23 [Rx] Mirtazapine [Remeron] 15 mg PO HS 30 Days #30 tab 11/03/23 [Rx] Nicotine 14Mg/24Hr Patch [Habitrol] 1 patch TRANSDERM DAILY 14 Days #14 patch 11/03/23 [Rx] Pantoprazole [Protonix] 40 mg PO AC-BRKFST 30 Days #30 tab 11/03/23 [Rx] QUEtiapine FUMARATE [SEROquel] 300 mg PO HS 30 Days #30 tablet 11/03/23 [Rx] traZODone HCL [Desyrel] 100 mg PO HS PRN 30 Days #30 tab 11/03/23 [Rx] Follow up Appointment(s)/Referral(s): Miguel Case MD [Primary Care Provider] - 1-2 days Patient Instructions/Handouts: How to Stop Smoking (DC), Depression (DC), At- Risk Alcohol Use (DC) Activity/Diet/Wound Care/Special Instructions: Avoid the use of street drugs and alcohol. Take all medications as prescribed. When you are in need of refills on your medications, please contact your medical provider and/or outpatient psychiatrist/provider to have this done. Please go to your scheduled outpatient appointment for aftercare treatment. If symptoms return or become worse, call the crisis line at and/or go to the nearest emergency room for evaluation. National Suicide Hotline 988 Discharge/Stand Alone Forms: AA Meetings [facility] 22 & 24 - [facility], AA Meetings [place] Discharge Disposition: HOME SELF-CARE
== END 2023-11-24 12:20 | disposition home or self-care (01) | DRG 885 ==
LOC: EC 19:27 → 3MHU 11-19 00:55
PROVIDERS: ADMIT Psychiatry & Neurology Psychiatry; ATTEND Psychiatry & Neurology Psychiatry
DX: F33.2 Major depressive disorder, recurrent severe without psychotic features (principal); R45.851 Suicidal ideations; C18.9 Malignant neoplasm of colon, unspecified; F10.21 Alcohol dependence, in remission; Z11.52 Encounter for screening for COVID-19; E78.5 Hyperlipidemia, unspecified; I25.2 Old myocardial infarction; G62.9 Polyneuropathy, unspecified; I25.10 Atherosclerotic heart disease of native coronary artery without angina pectoris; F41.9 Anxiety disorder, unspecified; M54.9 Dorsalgia, unspecified; F17.210 Nicotine dependence, cigarettes, uncomplicated; Z71.6 Tobacco abuse counseling; Z79.1 Long term (current) use of non-steroidal anti-inflammatories (NSAID); Z79.899 Other long term (current) drug therapy; Z96.653 Presence of artificial knee joint, bilateral
CPT/HCPCS: 80053; 80306; 81003; 82075; 85025; 87635; 99285

== ENCOUNTER → 2024-02-17 | Outpatient (CLI) | payer MEDICARE, MEDICAID ==
[2024-02-17 15:22] LABS: BUN/Creat Ratio 11.29 Ratio (12.00-20.00); Blood Urea Nitrogen 7.9 mg/dL (9.0-27.0); Calcium 8.7 mg/dL (8.7-10.3); Carbon Dioxide 20.7 mmol/L (21.6-31.8); Chloride 107 mmol/L (96-109); Glucose 84 mg/dL (70-110); Potassium 4.5 mmol/L (3.5-5.5); Sodium 138 mmol/L (135-145)
[2024-02-17 15:31] LABS: Basophils # (A) 0.03 X 10*3/uL (0.00-0.10); Basophils % (A) 0.4 %; Eosinophils # (A) 0.09 X 10*3/uL (0.04-0.35); Eosinophils % (A) 1.2 %; HCT 39.7 % (39.6-50.0); Lymphocytes # (A) 1.81 X 10*3/uL (0.90-5.00); Lymphocytes % (A) 23.7 %; MCHC 32.7 g/dL (32.0-37.0); MCV 94.7 FL (80.0-97.0); Mean Platelet Volume 11.2 FL (9.5-12.2); Monocytes # (A) 0.52 X 10*3/uL (0.20-1.00); Monocytes % (A) 6.8 %; NRBC Per 100 WBC 0 X 10*3/uL (0.00-0.01); Neutrophils # (A) 5.16 X 10*3/uL (1.80-7.70); Neutrophils % (A) 67.6 %; Platelet Count 199 X 10*3/uL (140-440); RBC 4.19 X 10*6/uL (4.40-5.60); WBC 7.63 X 10*3/uL (4.50-10.00)
[2024-02-17 16:50] LABS: Bacteria,Urine None Seen (None Seen)
[2024-02-17 17:20] LABS: Appearance,Urine Clear (Clear); Bilirubin,Urine Negative (Negative); Blood,Urine Negative (Negative); Color,Urine Dark Yellow (Yellow); Ketones,Urine Trace (Negative); Nitrite,Urine Negative (Negative); Specific Gravity,Urine >1.035 (1.001-1.030)
== END | disposition home or self-care (01) ==
LOC: LABWHC1 12:07
PROVIDERS: ATTEND Urology
DX: Z01.812 Encounter for preprocedural laboratory examination (principal); R97.20 Elevated prostate specific antigen [PSA]
CPT/HCPCS: 36415; 80048; 81001; 85025

== ENCOUNTER 2024-02-24 09:30 | Day surgery (SDC) | payer MEDICARE, OTHER ==
--- NOTE | 2024-02-17 17:00 | P.HPIHPCON ---
History of Present Illness H&P Date: 02/17/24 Chief Complaint: Elevated PSA This is a 63-year-old male with history of elevated PSA, underwent a prostate MRI that showed evidence of a PI-RADS 4 lesion along the right mid gland. Discussed with him given this finding I do recommend proceeding with an MRI fusion biopsy, aware of the risk of bleeding, infection. He understood all the risk and agreed to proceed with a transrectal MRI fusion biopsy of the prostate Consent for Procedure: I have explained the operation/procedure to the patient, including the risks, benefits, side effects, alternative therapies (including not receiving the proposed treatment or service), the likelihood of the patient achieving his/her goals, and potential recuperation problems for the procedure/sedation/analgesia, as well as any blood products, if indicated. I also explained to the patient the risks, benefits and side effects of the alternatives, as well as the risks related to not receiving the proposed procedure, care, treatment, or services. Past Medical History Past Medical History: Coronary Artery Disease (CAD), CVA/TIA, Hyperlipidemia, Myocardial Infarction (NE), Pneumonia Additional Past Medical History / Comment(s): pneumonia, closed head injury, neuropathy Last Myocardial Infarction Date:: unknown History of Any Multi-Drug Resistant Organisms: None Reported Past Surgical History: Back Surgery, Heart Catheterization With Stent, Joint Replacement, Orthopedic Surgery Additional Past Surgical History / Comment(s): esophogeal surgery, left femur and left hip with rods, bilateral knee replacement Past Anesthesia/Blood Transfusion Reactions: No Reported Reaction Date of Last Stent Placement:: unknown Past Alcohol Use History: None Reported - Past Family History Mother History Unknown: Yes Medications and Allergies Home Medications Medication Instructions Recorded Confirmed Type Meloxicam [Mobic] 15 mg PO DAILY 09/18/22 11/19/23 History Gabapentin [Neurontin] 800 mg PO TID 15 Days #45 tablet 09/20/22 11/19/23 Rx Thiamine [Vitamin B-1] 100 mg PO DAILY 30 Days #30 tab 09/20/22 11/19/23 Rx DULoxetine HCL [Cymbalta] 60 mg PO BID 30 Days #60 cap 11/03/23 11/19/23 Rx Mirtazapine [Remeron] 15 mg PO HS 30 Days #30 tab 11/03/23 11/19/23 Rx Nicotine 14Mg/24Hr Patch [Habitrol] 1 patch TRANSDERM DAILY 14 Days 11/03/23 Rx #14 patch Pantoprazole [Protonix] 40 mg PO AC-BRKFST 30 Days #30 tab 11/03/23 11/19/23 Rx QUEtiapine FUMARATE [SEROquel] 300 mg PO HS 30 Days #30 tablet 11/03/23 11/19/23 Rx traZODone HCL [Desyrel] 100 mg PO HS PRN 30 Days #30 tab 11/03/23 11/19/23 Rx Allergies Allergy/AdvReac Type Severity Reaction Status Date / Time No Known Allergies Allergy Verified 11/18/23 20:08 Surgical - Exam - General no distress, no pain - Eyes normal ocular movement, no pale - ENT normal nares, normal mucosa - Respiratory normal expansion, normal respiratory effort - Abdomen Abdomen: soft, non tender Assessment and Plan Assessment: OR for MRI fusion biopsy of the prostate
[2024-02-19 12:10] VITALS: BMI 25.0
[~2024-02-24 09:30] MED LIST: LIDOCAINE 1% INJ 10MG/ML (20 ML MDV) ONE; PROPOFOL 10 MG/ML 20 ML VIAL IV ONE; fentaNYL (PF) 50 MCG/ML 2 ML AMP ONE
[2024-02-24 10:03] VITALS: RESP 18; TEMP 97.6
[2024-02-24] MEDS: MIDAZOLAM 2 MG/2 ML VIAL IV ONE (10:16)
[2024-02-24] MEDS: GENTAMICIN 40 MG/ML 2 ML VIAL IM PRN (10:17)
[2024-02-24] MEDS: LACTATED RINGERS 1,000 ML IV SCH (10:20)
[2024-02-24] MEDS: IV FLUID CONTINUATION 1,000 ML IV ONE (10:23)
[2024-02-24 12:18] VITALS: BP 111/73; PULSE 62
--- NOTE | 2024-02-24 12:22 | P.OP ---
Date of Procedure: 02/24/24 Preoperative Diagnosis: Elevated PSA Postoperative Diagnosis: Same Procedure(s) Performed: MRI fusion biopsy of the prostate Anesthesia: MAC Surgeon: Efra Hart Estimated Blood Loss (ml): 1 Pathology: other (prostate biopsies) Condition: stable Disposition: PACU Indications for Procedure: This is a 63-year-old male with history of elevated PSA, underwent a prostate MRI that showed evidence of a PI-RADS 4 lesion along the right mid gland. Discussed with him given this finding I do recommend proceeding with an MRI fusion biopsy, aware of the risk of bleeding, infection. He understood all the risk and agreed to proceed with a transrectal MRI fusion biopsy of the prostate Description of Procedure: The patient was taken to the operating room and placed in the left lateral decubitus position. The [employer] transrectal ultrasound probe was placed intrarectally. It was then placed within the stand of the [employer] MRI/TRUS Fusion for Prostate Biopsy system. The prostate was imaged in both the axial and sagittal planes,. Using the Biopsy gun, 3 biopsies were obtained from the target lesion, there were was one lesions, . The remaining 12 biopsies of the peripheral zone were obtained utilizing a standard template. Once the procedure was completed, the ultrasound probe was removed. The patient tolerated the procedure well was taken to the recovery room stable condition
== END 2024-02-24 12:38 | disposition home or self-care (01) ==
LOC: OR 09:30
PROVIDERS: ATTEND Urology
CPT/HCPCS: 88305

== ENCOUNTER 2024-03-08 15:09 | Inpatient (IN) | payer MEDICARE, MEDICAID ==
--- NOTE | 2024-03-08 16:32 | ED ---
Psych HPI - General Source: patient Mode of arrival: ambulatory Limitations: no limitations - History of Present Illness MD Complaint: suicidal ideation, feels depressed Onset/Timin -: days(s) Associated Psychiatric Symptoms: depression, suicidal ideation Quality: constant Context: significant life stressor (Cancer diagnosis) Associated Symptoms: other (Anorexia) Treatments Prior to Arrival: none If Self Harm: admits thoughts of self harm <Seun Comer - Last Filed: 03/08/24 16:30> <Ghulam Trimble - Last Filed: 03/09/24 00:03> - General Chief Complaint: Psychiatric Symptoms Stated Complaint: mental health Time Seen by Provider: 03/08/24 15:24 - History of Present Illness Initial Comments: Quick note: This is a 64-year-old male complains of depression and suicidal ideation x 5 days. Patient states symptoms started immediately following the news of his prostate cancer diagnosis. Patient states he requires mental health evaluation. Patient also endorses decreased appetite and not eating since receiving the news. (Seun Comer) Agree with above (Ghulam Trimble) - Related Data Home Medications Medication Instructions Recorded Confirmed Meloxicam [Mobic] 15 mg PO DAILY 09/18/22 02/19/24 HYDROcodone/APAP 10-325MG [Glidden 1 tab PO BID PRN 02/19/24 02/19/24 10-325] Previous Rx's Medication Instructions Recorded Gabapentin [Neurontin] 800 mg PO TID 15 Days #45 tablet 09/20/22 DULoxetine HCL [Cymbalta] 60 mg PO BID 30 Days #60 cap 11/03/23 Pantoprazole [Protonix] 40 mg PO AC-BRKFST 30 Days #30 tab 11/03/23 QUEtiapine FUMARATE [SEROquel] 300 mg PO HS 30 Days #30 tablet 11/03/23 traZODone HCL [Desyrel] 100 mg PO HS PRN 30 Days #30 tab 11/03/23 Allergies Allergy/AdvReac Type Severity Reaction Status Date / Time No Known Allergies Allergy Verified 02/24/24 09:56 Review of Systems ROS Other: All systems not noted in ROS Statement are negative. <Seun Comer - Last Filed: 03/08/24 16:30> ROS Other: All systems not noted in ROS Statement are negative. Constitutional: Denies: fever, chills, weakness Respiratory: Denies: cough, dyspnea Cardiovascular: Denies: chest pain, edema, syncope Gastrointestinal: Denies: abdominal pain, vomiting, diarrhea Genitourinary: Denies: dysuria, frequency, hematuria Musculoskeletal: Denies: back pain Skin: Denies: rash Neurological: Denies: headache, weakness Psychiatric: Reports: depression, suicidal thoughts. Denies: auditory hallucinations, visual hallucinations, homicidal thoughts <Ghulam Trimble - Last Filed: 03/09/24 00:03> ROS Statement: Those systems with pertinent positive or pertinent negative responses have been documented in the HPI. Past Medical History Past Medical History: Coronary Artery Disease (CAD), CVA/TIA, Hyperlipidemia, Myocardial Infarction (IL), Pneumonia Additional Past Medical History / Comment(s): pneumonia, closed head injury, neuropathy Last Myocardial Infarction Date:: unknown History of Any Multi-Drug Resistant Organisms: None Reported Past Surgical History: Back Surgery, Heart Catheterization With Stent, Joint Replacement, Orthopedic Surgery Additional Past Surgical History / Comment(s): esophogeal surgery, left femur and left hip with rods, bilateral knee replacement Past Anesthesia/Blood Transfusion Reactions: No Reported Reaction Date of Last Stent Placement:: unknown Past Psychological History: Anxiety, Depression Smoking Status: Current every day smoker Past Alcohol Use History: None Reported Past Drug Use History: Marijuana - Past Family History Mother History Unknown: Yes <NahomiSeun - Last Filed: 03/08/24 16:30> General Exam Limitations: physical limitation <NahomiSeun - Last Filed: 03/08/24 16:30> General appearance: alert, in no apparent distress Head exam: Present: atraumatic, normocephalic Eye exam: Present: normal appearance. Absent: scleral icterus, conjunctival injection Neck exam: Present: normal inspection Respiratory exam: Present: normal lung sounds bilaterally. Absent: respiratory distress, wheezes, rales, rhonchi, stridor, accessory muscle use Cardiovascular Exam: Present: regular rate, normal rhythm, normal heart sounds. Absent: systolic murmur, diastolic murmur, rubs, gallop GI/Abdominal exam: Present: soft. Absent: distended, tenderness, guarding Extremities exam: Present: normal inspection, normal capillary refill. Absent: pedal edema, calf tenderness Back exam: Present: normal inspection. Absent: CVA tenderness (R), CVA tenderness (L) Neurological exam: Present: alert Psychiatric exam: Present: depressed, suicidal ideation. Absent: agitated, anxious, manic, homicidal ideation Skin exam: Present: warm, dry, intact, normal color. Absent: rash <Ghulam Trimble - Last Filed: 03/09/24 00:03> - General Exam Comments Initial Comments: Visual Physical Exam Vital signs reviewed General: Well-appearing, nontoxic, no acute distress. Head: Normocephalic, atraumatic Eyes: PERRLA, EOMI ENT: Airway patent Chest: Nonlabored breathing Skin: No visual rash, normal skin tone Neuro: Alert and oriented 3 Musculoskeletal: No gross abnormalities (Seun Comer) Course Vital Signs 03/08/24 15:36 Temperature 97.4 F L Pulse Rate 67 Respiratory 18 Rate Blood Pressure 100/65 O2 Sat by Pulse 97 Oximetry Medical Decision Making <Seun Comer - Last Filed: 03/08/24 16:30> <Ghulam Trimble - Last Filed: 03/09/24 00:03> - Medical Decision Making I completed the quick note portion of this chart signed JAMES Parrish (Seun Comer) I saw the patient and completed medical clearance. Patient seen by EPS personnel and discussed with the psychiatrist. Was pt. sent in by a medical professional or institution (MORGAN Almeida, ECONOMIC ANALYSIS DIRECTOR, urgent care, hospital, or long term...) When possible be specific @ -[No] Did you speak to anyone other than the patient for history (EMS, parent, family, police, friend...)? What history was obtained from this source @ -[No] Did you review nursing and triage notes (agree or disagree)? Why? @ -[I reviewed and agree with nursing and triage notes] Were old charts reviewed (outside hosp., previous admission, EMS record, old EKG, old radiological studies, urgent care reports/EKG's, long term records)? Report findings @ -[No old charts were reviewed] Differential Diagnosis (chest pain, altered mental status, abdominal pain women, abdominal pain men, vaginal bleeding, weakness, fever, dyspnea, syncope, headache, dizziness, GI bleed, back pain, seizure, CVA, palpatations, mental health, musculoskeletal)? @ -[Differential Mental Health Depression, anxiety, bipolar, psychosis, schizophrenia, borderline personality, situational depression, adjustment disorder, behavioral disorder, brain tumor, malingering, substance abuse, encephalopathy, medication reaction, dementia, hypothyroidism, degenerative neurologic disorder, lupus.... This is not meant to be all-inclusive list EKG interpreted by me (3pts min.). @ -[As above] X-rays interpreted by me (1pt min.). @ -[None done] CT interpreted by me (1pt min.). @ -[None done] U/S interpreted by me (1pt. min.). @ -[None done] What testing was considered but not performed or refused? (CT, X-rays, U/S, labs)? Why? @ -[None] What meds were considered but not given or refused? Why? @ -[None] Did you discuss the management of the patient with other professionals (professionals i.e. , PA, ECONOMIC ANALYSIS DIRECTOR, lab, RT, psych nurse, social service liaison, green inspector, teacher, consumer loan officer, employment evaluator/case manager)? Give summary @ -[Case discussed with EPS personnel Was smoking cessation discussed for >3mins.? @ -[No] Was critical care preformed (if so, how long)? @ -[No] Were there social determinants of health that impacted care today? How? (Homelessness, low income, unemployed, alcoholism, drug addiction, transportation, low edu. Level, literacy, decrease access to med. care, nursing home, rehab)? @ -[No] Was there de-escalation of care discussed even if they declined (Discuss DNR or withdrawal of care, Hospice)? DNR status @ -[No] What co-morbidities impacted this encounter? (DM, HTN, Smoking, COPD, CAD, Cancer, CVA, ARF, Chemo, Hep., AIDS, mental health diagnosis, sleep apnea, morbid obesity)? @ -[None] Was patient admitted / discharged? Hospital course, mention meds given and route, prescriptions, significant lab abnormalities, going to OR and other pertinent info. @ -[hospital course] Undiagnosed new problem with uncertain prognosis? @ -[No] Drug Therapy requiring intensive monitoring for toxicity (Heparin, Nitro, Insulin, Cardizem)? @ -[No] Were any procedures done? @ -[No] Diagnosis/symptom? @ -[Acute on chronic mood disorder Suicidal ideation, acute Acute, or Chronic, or Acute on Chronic? @ -[As above Uncomplicated (without systemic symptoms) or Complicated (systemic symptoms)? @ -[Uncomplicated Side effects of treatment? @ -[No] Exacerbation, Progression, or Severe Exacerbation? @ -[No] Poses a threat to life or bodily function? How? (Chest pain, USA, IL, pneumonia, PE, COPD, DKA, ARF, appy, cholecystitis, CVA, Diverticulitis, Homicidal, Suic idal, threat to staff... and all critical care pts) @ -[There is risk of progression to suicide attempt/completion (Ghulam Trimble) Disposition <Seun Comer - Last Filed: 03/08/24 16:30> <Ghulam Trimble - Last Filed: 03/09/24 00:03> Referrals: Miguel Case MD [Primary Care Provider] - 1-2 days
[2024-03-09] MEDS ORDERED: MAGNESIUM HYDROXIDE 2,400 MG/30 ML CUP PO PRN (01:43)
[2024-03-09] MEDS ORDERED: MAG HYDROX/AL HYDROX/SIMETH 355 ML BOTTLE PO PRN (01:43)
[2024-03-09] MEDS ORDERED: LORazepam 2 MG/ML INJ IM PRN (01:43)
[2024-03-09] MEDS ORDERED: ACETAMINOPHEN TAB 325 MG TAB PO PRN (01:43)
[2024-03-09] MEDS: ATORVASTATIN 40 MG TAB PO SCH (08:00)
[2024-03-09] MEDS: NICOTINE 14MG/24HR PATCH TRANSDERM SCH (08:00)
[2024-03-09] MEDS: DULoxetine HCL 60 MG CAPSULE.DR PO SCH (08:00)
[2024-03-09] MEDS: SERTRALINE 100 MG TAB PO SCH (08:00)
[2024-03-09] MEDS: PANTOPRAZOLE 40 MG TABLET PO SCH (08:00)
[2024-03-09 08:11] LABS: Anisocytosis Slight; Basophils % (A) 0 %; Eosinophils # (A) 0.1 k/uL (0-0.7); Eosinophils % (A) 2 %; HCT 41.2 % (39.0-53.0); HGB 13.2 gm/dL (13.0-17.5); Lymphocytes % (A) 28 %; MCH 31.4 pg (25.0-35.0); Macrocytosis Slight; Mean Platelet Volume 7.8; Monocytes # (A) 0.2 k/uL (0-1.0); Monocytes % (A) 5 %; Neutrophils # (A) 2.2 k/uL (1.3-7.7); Neutrophils % (A) 63 %; Platelet Count 175 k/uL (150-450); RDW 16.6 % (11.5-15.5); WBC 3.5 k/uL (3.8-10.6)
[2024-03-09 08:20] LABS: ALT 14 U/L (4-49); AST 24 U/L (17-59); African American GFR (CKD) >90 (>60 ml/min/1.73 sqM); Albumin 3.4 g/dL (3.5-5.0); Alkaline Phosphatase 119 U/L (38-126); Anion Gap 4 mmol/L; Bilirubin, Delta 0.1 mg/dL (0.0-0.2); Bilirubin,Unconjugated 0.2 mg/dL (0.0-1.1); Blood Urea Nitrogen 11 mg/dL (9-20); Carbon Dioxide 24 mmol/L (22-30); Chloride 110 mmol/L (98-107); Glucose 93 mg/dL (74-99); Non-African American GFR(CKD) >90 (>60 ml/min/1.73 sqM); Sodium 138 mmol/L (137-145); Total Bilirubin 0.3 mg/dL (0.2-1.3); Total Protein 5.7 g/dL (6.3-8.2)
[2024-03-09] MEDS: HYDROcodone/APAP 5-325MG 1 EACH TAB PO PRN (08:41)
--- NOTE | 2024-03-09 10:17 | P.HP ---
Psychiatric H&P - . H&P Date: 03/09/24 History & Physical: Allergies Allergy/AdvReac Type Severity Reaction Status Date / Time No Known Allergies Allergy Verified 03/09/24 02:07 Vital Signs Temp 97.0 F L 03/09/24 08:13 Pulse 91 03/09/24 08:42 Resp 18 03/09/24 08:13 BP 105/66 03/09/24 08:42 Pulse Ox 96 03/09/24 08:13 FiO2 Intake & Output 03/08/24 03/09/24 03/09/24 18:59 06:59 18:59 Weight 72.575 kg 66.253 kg Laboratory Last Values WBC 3.5 k/uL (3.8-10.6) L 03/09/24 07:52 RBC 4.20 m/uL (4.30-5.90) L 03/09/24 07:52 Hgb 13.2 gm/dL (13.0-17.5) 03/09/24 07:52 Hct 41.2 % (39.0-53.0) 03/09/24 07:52 MCV 98.0 fL (80.0-100.0) 03/09/24 07:52 MCH 31.4 pg (25.0-35.0) 03/09/24 07:52 MCHC 32.0 g/dL (31.0-37.0) 03/09/24 07:52 RDW 16.6 % (11.5-15.5) H 03/09/24 07:52 Plt Count 175 k/uL (150-450) 03/09/24 07:52 MPV 7.8 03/09/24 07:52 Neutrophils % 63 % 03/09/24 07:52 Lymphocytes % 28 % 03/09/24 07:52 Monocytes % 5 % 03/09/24 07:52 Eosinophils % 2 % 03/09/24 07:52 Basophils % 0 % 03/09/24 07:52 Neutrophils # 2.2 k/uL (1.3-7.7) 03/09/24 07:52 Lymphocytes # 1.0 k/uL (1.0-4.8) 03/09/24 07:52 Monocytes # 0.2 k/uL (0-1.0) 03/09/24 07:52 Eosinophils # 0.1 k/uL (0-0.7) 03/09/24 07:52 Basophils # 0.0 k/uL (0-0.2) 03/09/24 07:52 Anisocytosis Slight 03/09/24 07:52 Macrocytosis Slight 03/09/24 07:52 Sodium 138 mmol/L (137-145) 03/09/24 07:52 Potassium 4.0 mmol/L (3.5-5.1) 03/09/24 07:52 Chloride 110 mmol/L (98-107) H 03/09/24 07:52 Carbon Dioxide 24 mmol/L (22-30) 03/09/24 07:52 Anion Gap 4 mmol/L 03/09/24 07:52 BUN 11 mg/dL (9-20) 03/09/24 07:52 Creatinine 0.63 mg/dL (0.66-1.25) L 03/09/24 07:52 Est GFR (CKD-EPI)AfAm >90 (>60 ml/min/1.73 sqM) 03/09/24 07:52 Est GFR (CKD-EPI)NonAf >90 (>60 ml/min/1.73 sqM) 03/09/24 07:52 Glucose 93 mg/dL (74-99) 03/09/24 07:52 Calcium 9.0 mg/dL (8.4-10.2) 03/09/24 07:52 Total Bilirubin 0.3 mg/dL (0.2-1.3) 03/09/24 07:52 Conjugated Bilirubin 0.0 mg/dL (0.0-0.3) 03/09/24 07:52 Unconjugated Bilirubin 0.2 mg/dL (0.0-1.1) 03/09/24 07:52 Delta Bilirubin 0.1 mg/dL (0.0-0.2) 03/09/24 07:52 AST 24 U/L (17-59) 03/09/24 07:52 ALT 14 U/L (4-49) 03/09/24 07:52 Alkaline Phosphatase 119 U/L (38-126) 03/09/24 07:52 Total Protein 5.7 g/dL (6.3-8.2) L 03/09/24 07:52 Albumin 3.4 g/dL (3.5-5.0) L 03/09/24 07:52 TSH 1.630 mIU/L (0.465-4.680) 03/09/24 07:52 Influenza Type A (PCR) Not Detected (Not Detectd) 03/09/24 00:24 Influenza Type B (PCR) Not Detected (Not Detectd) 03/09/24 00:24 RSV (PCR) Not Detected (Not Detectd) 03/09/24 00:24 SARS-CoV-2 (PCR) Not Detected (Not Detectd) 03/09/24 00:24 03/09/24 10:04 IDENTIFYING DATA: Patient is a 64-year-old male currently disabled living in a senior center with a history of major depressive disorder, bipolar disorder type I, alcohol use disorder, and cannabis use disorder. HPI: Patient presented to the hospital noting that he was having thoughts of related to finding out that he recently was diagnosed a week ago with prostate cancer. Patient notes that the thoughts were suicidal in nature but with no intent or plan. He denied any homicidal ideations or access to guns. Notes one of the main reasons was to get out of his house so he could think stra ighter. Currently he is rating his depression 8/10 and his anxiety 9/10 with 10 being worst. He notes that he is not sleeping well and has midcycle sleep problems related to the recent diagnosis. He notes that his energy is fair and that his appetite is poor. He notes no problems with concentration at this time. He denies any feelings of helplessness, hopelessness or worthlessness. He notes crying bouts when he found out about the diagnosis. Denies any guilt or shame. Review of psychiatric systems were negative for history of manic episodes including racing thoughts, sleep disturbance, impulsive behaviors, or pressured speech. The patient notes a history of mood swings at times. Additionally the patient's anxiety includes chronic worrying 100% of the day, muscle tension, nausea and midcycle awakening. He denies any OCD or PTSD symptoms. He notes a past history of hearing voices but has not heard voices in years. PAST PSYCHIATRIC HISTORY: Patient has a history of patient's been hospitalized up to 7 times in the past. He notes 1 prior suicide attempt years ago by trying to drink himself to . He notes no physical, verbal, or sexual abuse growing up. He denies any self harming behavior. He notes with the exception of the 1 DUI he has not been behind bars for anything else or violent. He is unable to recall past psychotropic medications at this time. He notes that he follows up at [facility] for his mental health needs. PMH: as per ER note ALLERGIES: as per EMR CHEMICAL DEPENDENCY HISTORY: as per HPI Caffeine-positive Tobacco-half a pack daily Alcohol-patient notes that he has not had a drink in 1.5 years. He has been through multiple detoxes and rehabs. He has attended AA in the past. He denies any sobriety medications. He has 1 prior DUI notes that drinking has affected of his life and multiple levels. FAMILY PSYCHIATRIC/SUBSTANCE USE HISTORY: Patient notes that his sister of alcoholism. SOCIAL HISTORY: Patient was born and raised in [place]. The patient dropped out in the ninth grade because he was unable to perform reading and writing task. He describes his childhood as "rough". He has 2 prior marriages and 2 children which he stays in touch with. He used to be a truck manager and woodworking machinist. He is currently in a senior center. He describes himself as a Yarsanism. He denies any prior service. MENTAL STATUS EXAM: General Appearance: Patient appears to be his stated age is alert, patient needs the assistance of a walker due to his medical problems. He did appear disheveled and unshaven. Behavior: Patient is seated without any agitated behavior. Patient presented somewhat anxious and restless. Speech: Patient's speech is fluent and nonpressured. Mood/Affect: Patient reports their mood is depressed, affect is congruent and constricted. Suicidality/Homicidality: Patient denies having any homicidal ideation intent or plan. Denies any suicidal ideations intent or plan Perceptions: Patient denies any visual hallucinations and denies any auditory hallucinations Though content/process: There is no evidence of any delusional thought content and thought process is linear and goal-directed. Memory and concentration: AOX3, grossly intact for the purposes of this session. Judgment and insight: Poor STRENGTHS/WEAKNESSES: strength is that patient is resilient. Weakness is that patient has poor judgment and is impulsive INTELLECT: Average IMPRESSIONS: Adjustment disorder Major depressive disorder recurrent moderate Generalized anxiety disorder Alcohol use disorder in full remission Tobacco use disorder Cannabis use disorder Assessment: 64-year-old male presenting dating that he is having thoughts of but has not formulated a plan or intent at this point. Pain trigger is the finding out of the diagnosis of prostate cancer prior to that he was doing "okay". Interviewing the patient I did not feel that he met criteria currently for bipolar disorder but met the criteria for adjustment disorder, major depressive disorder, and generalized anxiety disorder. Patient was stable on his medications when admitted and it is felt that continuation without adjustments at this time and monitoring is essential. Due to the erratic thoughts in the past history of a prior suicide attempt plus substance abuse it is warranted that the patient remain hospitalized at this time. PLAN: -Patient is admitted under voluntary status to MHU for stabilization of psychiatric symptoms and safety. Patient has signed adult voluntary form and medication consent and is placed in patient's chart. -Medications : Restart patient's Seroquel 300 mg take 1 tablet by mouth at bedtime for insomnia/mood Restart patient's Cymbalta 60 mg take 1 tablet by mouth twice daily for depression/pain Restart patient's Gabapentin 800 mg take 1 tablet by mouth 3 times daily for neuropathy Restart patient's Ativan 0.5 mg take 1 tablet by mouth once daily as needed for anxiety Restart patient's Trazodone 100 mg take 1 tablet by mouth at bedtime for insomnia Restart patient's Zoloft 100 mg take 1 tablet by mouth once daily for depression/anxiety -Ativan and Haldol PRN for agitation/aggression -Patient was informed of the risks, benefits and side effects of the medication and patient verbally consented to taking the medications. Patient signed med consent form and was placed in chart. -Internal Medicine consult to perform medical evaluation and physical. -NRT -nicotine patch not needed as patient does not smoke -SW on board for discharge planning. Encourage patient to participate in groups to work on coping skills. Will await deferral and court date.
[2024-03-09] MEDS: LORazepam 0.5 MG TAB PO SCH (11:40)
[2024-03-09] MEDS: GABAPENTIN 400 MG CAP PO SCH (11:40)
[2024-03-09 15:34] LABS: Chol/HDL Ratio 2.38 Ratio; LDL Cholesterol,Calculated 53.9 mg/dL (0.0-131.0); VLDL Calculation 18.58 mg/dL (5.00-40.00)
[2024-03-09] MEDS ORDERED: NON FORMULARY DRUG (Quetiapine Fumarate [Seroquel] 300 MG Tablet) PO SCH (21:00)
[2024-03-09] MEDS ORDERED: busPIRone HCl 5 MG TAB PO SCH (21:00)
[2024-03-09] MEDS: QUEtiapine 100 MG TAB PO SCH (21:19)
[2024-03-09] MEDS: busPIRone HCl 10 MG TAB PO SCH (21:19)
[2024-03-09] MEDS: traZODone HCL 100 MG TAB PO PRN (21:20)
[2024-03-10 07:10] VITALS: RESP 16
--- NOTE | 2024-03-10 12:39 | P.PN ---
Progress Note - Text Progress Note Date: 03/10/24 Chief complaint: "Thoughts of Interval History: Patient was seen [wandering the hallways] and was directable and agreeable to speak with magazine writer in the office. Patient notes that he is feeling "a lot better". He notes that his depression has gone from an 8 to a 3 with 10 being worst. He notes that his anxiety has gone from a 9 to a 0 with 10 being worst. He notes some of this his encouragement from talking to his sister yesterday and noting that his new granddaughter will be here for Halloween. He notes that he still has midcycle awakening and poor appetite but notes improvements with energy and concentration.. At this time patient denies any suicidal or homical ideations, intent or plan. Patient denies any auditory, visual hallucinations and denies any paranoia or delusions. Patient denies any side effects from the medications and has been compliant with meds. Mental Status Exam: General Appearance: [Patient appears to be stated age is alert, directable, and cooperative.] Behavior: [Patient is calmly seated without any agitated behavior.] Speech: Patient's speech is fluent and nonpressured. Mood/Affect: Mood is improving mildly, affect is congruent and constricted. Suicidality/Homicidality: Patient denies having any suicidal or homicidal ideation intent or plan. Perceptions: Patient denies any visual hallucinations [and denies any auditory hallucinations] Though content/process: [There is no evidence of any delusional thought content and thought process is linear and goal-directed.] Memory and concentration: AOX3, grossly intact for the purposes of this session Judgment and insight: Improving mildly Diagnosis: Adjustment disorder Major depressive disorder recurrent moderate Generalized anxiety disorder Alcohol use disorder in full remission Tobacco use disorder Cannabis use disorder Assessment: Patient is presenting a lot more stable today compared to yesterday. He actually has future thoughts including being with his granddaughter on hollowing. Possible discharge tomorrow. PLAN: -Patient is admitted under voluntary status to MHU for stabilization of psychiatric symptoms and safety. Patient has signed adult voluntary form and medication consent and is placed in patient's chart. -Medications : * Seroquel 300 mg take 1 tablet by mouth at bedtime for insomnia/mood * Cymbalta 60 mg take 1 tablet by mouth twice daily for depression/pain * Gabapentin 800 mg take 1 tablet by mouth 3 times daily for neuropathy * Ativan 0.5 mg take 1 tablet by mouth once daily as needed for anxiety * Trazodone 100 mg take 1 tablet by mouth at bedtime for insomnia * Zoloft 100 mg take 1 tablet by mouth once daily for depression/anxiety -Ativan and Haldol PRN for agitation/aggression -Patient was informed of the risks, benefits and side effects of the medication and patient verbally consented to taking the medications. Patient signed med consent form and was placed in chart. -Internal Medicine consult to perform medical evaluation and physical. -NRT -nicotine patch not needed as patient does not smoke -SW on board for discharge planning. Encourage patient to participate in groups to work on coping skills.
[2024-03-10] MEDS: IBUPROFEN 600 MG TAB PO PRN (15:49)
[2024-03-10] MEDS: LORazepam 1 MG TAB PO PRN (21:17)
[2024-03-11 07:15] VITALS: TEMP 98.9
[2024-03-11 08:39] VITALS: BP 109/73; PULSE 99
[2024-03-11 09:21] LABS: Appearance,Urine Clear (Clear); Bilirubin,Urine Negative (Negative); Blood,Urine Trace (Negative); Color,Urine Yellow; Glucose,Urine (UA) Negative (Negative); Hyaline Casts,Urine 3 /lpf (0-2); Ketones,Urine Negative (Negative); Leukocyte Esterase,Urine Negative (Negative); Mucus,Urine Moderate /hpf; Nitrite,Urine Negative (Negative); PH, Urine 5.5 (5.0-8.0); Protein,Urine Trace (Negative); RBC,Urine 4 /hpf (0-5); Specific Gravity,Urine 1.019 (1.001-1.035); Squamous Epithelial Cell,Urine <1 /hpf (0-4); Urobilinogen,Urine <2.0 mg/dL (<2.0); WBC,Urine 3 /hpf (0-5)
--- NOTE | 2024-03-11 11:13 | P.DS ---
Providers Date of admission: 03/09/24 01:37 Expected date of discharge: 03/11/24 Attending physician: Skyler Pearson MD Admission HPI: Admission note was completed by Dr. Peraza " Patient presented to the hospital noting that he was having thoughts of related to finding out that he recently was diagnosed a week ago with prostate cancer. Patient notes that the thoughts were suicidal in nature but with no intent or plan. He denied any homicidal ideations or access to guns. Notes one of the main reasons was to get out of his house so he could think straighter. Currently he is rating his depression 8/10 and his anxiety 9/10 with 10 being worst. He notes that he is not sleeping well and has midcycle sleep problems related to the recent diagnosis. He notes that his energy is fair and that his appetite is poor. He notes no problems with concentration at this time. He denies any feelings of helplessness, hopelessness or worthlessness. He notes crying bouts when he found out about the diagnosis. Denies any guilt or shame. Review of psychiatric systems were negative for history of manic episodes including racing thoughts, sleep disturbance, impulsive behaviors, or pressured speech. The patient notes a history of mood swings at times. Additionally the patient's anxiety includes chronic worrying 100% of the day, muscle tension, nausea and midcycle awakening. He denies any OCD or PTSD symptoms. He notes a past history of hearing voices but has not heard voices in years." Hospital course: Upon admission to the unit patient was [directable and agreeable to commence treatment and signed adult voluntary form] . . Patient got along well with other patients on the unit and followed unit protocol. Patient was compliant with the medications and denied any side effects throughout hospital course. Patient was started on on all his home medications with no changes. Patient spoke of [his] stressors and engaged in therapy both group and individual. Patient was also seen by medical team for history and physical exam. Throughout the course of the hospitalization patient gradually improved with regards to [mood, anxiety], sleep and [returned back to their baseline level of functioning][became more future oriented with improved insight and judgment]. On the day of discharge patient denied any suicidal or homicidal ideations intent or plan denied any auditory or visual hallucinations. Patient endorsed wanting to live for [their health and family.] The patient denied any access to guns or weapons. Patient denied any paranoia and did not endorse any delusions. Patient does have a significant history of substance abuse [and] was counseled on abstaining from all substances including alcohol and marijuana. [Patient was offered however declined inpatient substance-abuse rehab.] [Patient elected to do outpatient substance use treatment program through their outpatient provider.] . Patient was also counseled on the medications and need for regular compliance and was encouraged to follow-up with their outpatient appointment for mental health and also for primary care. [Prior to discharge a family meeting will be arranged by psychiatric social worker to answer any questions and ensure safety upon discharge incuding making sure that guns/weapons are either removed from the home or locked away.] Patient's recovery was fast due to his granddaughter visiting for [facility]. Day of discharge patient denied any suicidal or homicidal ideations. He noted that his depression and anxiety had resolved. He was looking forward to following up with his medical appointments. He notes that his sleep, energy, appetite and concentration were normal. He was able to voice a safety plan including calling 911. Mental status exam: General Appearance: Patient appears to be his stated age is alert, pleasant, and cooperative. Patient is in no acute distress and has improved hygiene and grooming Behavior: Patient is calmly seated without any agitated behavior. Speech: Patient's speech is fluent and nonpressured. Mood/Affect: Patient reports their mood is "[better][good]", affect is congruent and euthymic. Suicidality/Homicidality: Patient denies having any suicidal or homicidal ideation intent or plan. Perceptions: Patient denies any auditory or visual hallucinations. Though content/process: There is no evidence of any delusional thought content and thought process is linear and goal-directed. [more future oriented] Memory and concentration: AOX3, grossly intact for the purposes of this session. Judgment and insight: [chronically poor, however has] improved with guarded prognosis Impression: Adjustment disorder resolved Major depressive disorder recurrent moderate Generalized anxiety disorder Alcohol use disorder in full remission Tobacco use disorder Cannabis use disorder Plan: -Continue with discharge today as patient has improved and stabilized psychiatrically and is not currently an imminent threat to themself and/or others. -Continue medications: * Seroquel 300 mg take 1 tablet by mouth at bedtime for insomnia/mood * Cymbalta 60 mg take 1 tablet by mouth twice daily for depression/pain * Gabapentin 800 mg take 1 tablet by mouth 3 times daily for neuropathy * Ativan 0.5 mg take 1 tablet by mouth once daily as needed for anxiety * Trazodone 100 mg take 1 tablet by mouth at bedtime for insomnia * Zoloft 100 mg take 1 tablet by mouth once daily for depression/anxiety -Patient was counseled on the need for medication compliance and appropriate follow-up at mental health and also primary care for medical issues. Patient verbalized understanding and agreed. -Social work to [help coordinate patients discharge today][arrange for and conduct family meeting to ensure safety upon discharge and answer any questions/concerns]. also to ensure safe home environment that guns/weapons are either removed from the home or locked away. Social work also to arrange for patients follow up appointments [with [facility]] for psychiatric care along with follow up with primary care provider. -Patient counseled on abstaining from recreational drugs and marijuana and alcohol. Was informed/educated on the adverse effects on their physical and mental health. Patient verbally agreed and understood. -Patient was instructed to return to the hospital or seek immediate medical care if their psychiatric or medical symptoms do worsen or reoccur. Consults: 03/09/24 01:43 Consult Physician Routine Consulting Provider: Miguel Case Consult Reason/Comments: For H & P for Medical Follow up Do you want consulting provider notified?: Yes, Notify in am Primary care physician: Miguel Case Plan - Discharge Summary Discharge Rx Participant: Yes New Discharge Prescriptions: New busPIRone HCl [Buspar] 10 mg PO BID 30 Days #60 tab Nicotine 14Mg/24Hr Patch [Habitrol] 1 patch TRANSDERM DAILY 14 Days #14 patch Atorvastatin [Lipitor] 40 mg PO DAILY 30 Days #30 tab Sertraline [Zoloft] 100 mg PO DAILY 30 Days #30 tab LORazepam [Ativan] 0.5 mg PO DAILY 30 Days #30 tab Gabapentin [Neurontin] 800 mg PO TID #0 cap Continue Pantoprazole [Protonix] 40 mg PO AC-BRKFST 30 Days #30 tab HYDROcodone/APAP 10-325MG [[place] 10-325] 1 tab PO BID PRN PRN Reason: Pain DULoxetine HCL [Cymbalta] 60 mg PO BID 30 Days #60 cap Meloxicam [Mobic] 15 mg PO DAILY traZODone HCL [Desyrel] 100 mg PO HS PRN 30 Days #30 tab PRN Reason: Insomnia QUEtiapine FUMARATE [SEROquel] 300 mg PO HS 30 Days #30 tablet Discontinued Gabapentin [Neurontin] 800 mg PO TID 15 Days #45 tablet Discharge Medication List Meloxicam [Mobic] 15 mg PO DAILY 09/18/22 [History] Pantoprazole [Protonix] 40 mg PO AC-BRKFST 30 Days #30 tab 11/03/23 [Rx] HYDROcodone/APAP 10-325MG [[place] 10-325] 1 tab PO BID PRN 02/19/24 [History] Atorvastatin [Lipitor] 40 mg PO DAILY 30 Days #30 tab 03/11/24 [Rx] DULoxetine HCL [Cymbalta] 60 mg PO BID 30 Days #60 cap 03/11/24 [Rx] Gabapentin [Neurontin] 800 mg PO TID #0 cap 03/11/24 [Rx] LORazepam [Ativan] 0.5 mg PO DAILY 30 Days #30 tab 03/11/24 [Rx] Nicotine 14Mg/24Hr Patch [Habitrol] 1 patch TRANSDERM DAILY 14 Days #14 patch 03/11/24 [Rx] QUEtiapine FUMARATE [SEROquel] 300 mg PO HS 30 Days #30 tablet 03/11/24 [Rx] Sertraline [Zoloft] 100 mg PO DAILY 30 Days #30 tab 03/11/24 [Rx] busPIRone HCl [Buspar] 10 mg PO BID 30 Days #60 tab 03/11/24 [Rx] traZODone HCL [Desyrel] 100 mg PO HS PRN 30 Days #30 tab 03/11/24 [Rx] Follow up Appointment(s)/Referral(s): Cancer, [facility] [Other] - 03/18/24 1:00 pm (03/18 @ 13:[address] Billings ) [facility] [Outside] - 03/15/24 11:00 am (03/15/2024 11:00AM - 12:00PM JOSE LUIS MERCER 03/24/2024 8:00AM - 9:00AM CRISTI GIBSON ) Miguel Case MD [Primary Care Provider] - 1-2 days Discharge Disposition: HOME SELF-CARE
[2024-03-11 18:21] LABS: Urine Alcohol Negative (Negative); Urine Barbiturate Negative (Negative); Urine Cocaine Negative (Negative); Urine Methadone Positive (Negative); Urine Opiates Positive (Negative); Urine Phencyclidine Negative (Negative)
--- NOTE | 2024-03-13 22:41 | HP ---
HISTORY AND PHYSICAL CHIEF COMPLAINT: Major depression. HISTORY OF PRESENT ILLNESS: This is another admission for this 64-year-old gentleman, who presented to the hospital for depression with suicidal thoughts. REVIEW OF SYSTEMS: He has no complaints. The patient has had no headaches, chest pain, abdominal pain, nausea, vomiting, etc. Past medical history, family history, personal and social history are all otherwise unremarkable and noncontributory. PHYSICAL EXAMINATION: VITAL SIGNS: Normal. HEAD, EARS, EYES, NOSE, MOUTH, AND THROAT: Normal. CHEST: Clear. CARDIAC: Normal. ABDOMEN: Soft and nontender. EXTREMITIES: Normal. NEUROLOGIC: Intact. IMPRESSION: Major depression. RECOMMENDATIONS: None. MMODL / IJN: [id number] /
== END 2024-03-11 12:20 | disposition home or self-care (01) | DRG 885 ==
LOC: EC 15:09 → 3MHU 03-09 01:37
PROVIDERS: ADMIT Psychiatry & Neurology Psychiatry; ATTEND Psychiatry & Neurology Psychiatry
DX: F33.1 Major depressive disorder, recurrent, moderate (principal); R45.851 Suicidal ideations; C61 Malignant neoplasm of prostate; E78.5 Hyperlipidemia, unspecified; F10.11 Alcohol abuse, in remission; F12.90 Cannabis use, unspecified, uncomplicated; F17.200 Nicotine dependence, unspecified, uncomplicated; F41.1 Generalized anxiety disorder; F43.20 Adjustment disorder, unspecified; G62.9 Polyneuropathy, unspecified; I25.10 Atherosclerotic heart disease of native coronary artery without angina pectoris; I25.2 Old myocardial infarction; Z79.1 Long term (current) use of non-steroidal anti-inflammatories (NSAID); Z91.51 Personal history of suicidal behavior; Z96.653 Presence of artificial knee joint, bilateral; Z11.52 Encounter for screening for COVID-19
CPT/HCPCS: 80053; 80061; 80306; 81001; 82075; 82248; 83036; 84443; 85025; 87636; 99285

== ENCOUNTER → 2024-03-15 | Outpatient (CLI) | payer MEDICARE, MEDICAID | END | disposition home or self-care (01) | LOC: LABWHC1 13:25 | PROVIDERS: ATTEND Orthopaedic Surgery | DX: M25.561 Pain in right knee (principal); M25.562 Pain in left knee; T84.84XA Pain due to internal orthopedic prosthetic devices, implants and grafts, initial encounter; Z96.651 Presence of right artificial knee joint; Z96.652 Presence of left artificial knee joint | CPT/HCPCS: 36415; 85379; 85652; 86140 ==

== ENCOUNTER → 2024-03-26 | Outpatient (CLI) | payer MEDICARE ==
--- NOTE | 2024-03-28 12:34 | MR ---
EXAMINATION TYPE: MR lumbar spine wo/w con DATE OF EXAM: 03/26/2024 12:29 PM COMPARISON: None. CLINICAL INDICATION: Male, 64 years old with history of M54.51 VERTEBROGENIC LOW BACK PAIN, TECHNIQUE: Multiplanar, multisequence images of the lumbar spine were acquired. IV Contrast: mL (None, if empty) FINDINGS: Cord ends at the L1-L2 level. L5-S1: No focal disc herniation or significant disc bulge. No spinal canal stenosis. Neural foramen are patent. L4-L5: Facet hypertrophy and ligamentum flavum laxity has posterior lateral thecal sac compression. M ild broad-based disc bulge has mild anterior thecal sac flattening. Mild canal narrowing without sten osis may be present. Some lateral canal stenosis may be present. Foramen are patent. L3-L4: No focal disc herniation or significant disc bulge. No spinal canal stenosis. Facet hypertrop hy and ligamentum flavum laxity has posterior lateral thecal sac compression may be slightly greater on the right. No stenosis is evident. Neural foramen are patent. L2-L3: No focal disc herniation or significant disc bulge. No spinal canal stenosis. Neural foramen are patent. L1-L2: No focal disc herniation or significant disc bulge. No spinal canal stenosis. Neural foramen are patent. T12-L1: No focal disc herniation or significant disc bulge. No spinal canal stenosis. Neural forame n are patent. IMPRESSION: 1. Facet hypertrophy and ligamentum flavum laxity with posterior lateral thecal sac compression L4-5. Disc bulge at L4-5 may contribute to some spinal canal narrowing at L4-5. Lateral canal narrowing ma y be present. 2. Posterior lateral thecal sac compression from facet hypertrophy and ligamentum flavum laxity L3-4. No stenosis present [facility], , 03/28/2024 12:32 PM
== END | disposition home or self-care (01) ==
LOC: RADMRIMAIN 11:10
PROVIDERS: ATTEND Physical Medicine & Rehabilitation
DX: M47.816 Spondylosis without myelopathy or radiculopathy, lumbar region (principal); M48.061 Spinal stenosis, lumbar region without neurogenic claudication
CPT/HCPCS: 72158; A9585

== ENCOUNTER → 2024-03-26 | Outpatient (CLI) | payer MEDICARE ==
[2024-03-26 20:13] LABS: Basophils # (A) 0.03 X 10*3/uL (0.00-0.10); Basophils % (A) 0.6 %; Eosinophils # (A) 0.07 X 10*3/uL (0.04-0.35); Eosinophils % (A) 1.3 %; HCT 40.8 % (39.6-50.0); HGB 13.2 g/dL (13.0-17.0); Lymphocytes # (A) 1.38 X 10*3/uL (0.90-5.00); Lymphocytes % (A) 25.4 %; MCHC 32.4 g/dL (32.0-37.0); Mean Platelet Volume 11.6 FL (9.5-12.2); Monocytes # (A) 0.26 X 10*3/uL (0.20-1.00); Monocytes % (A) 4.8 %; NRBC Per 100 WBC 0 X 10*3/uL (0.00-0.01); Neutrophils # (A) 3.68 X 10*3/uL (1.80-7.70); Neutrophils % (A) 67.7 %; Platelet Count 187 X 10*3/uL (140-440); RBC 4.12 X 10*6/uL (4.40-5.60); RDW 16.2 % (11.5-14.5); WBC 5.43 X 10*3/uL (4.50-10.00)
[2024-03-26 20:20] LABS: BUN/Creat Ratio 12.86 Ratio (12.00-20.00); Carbon Dioxide 19.2 mmol/L (21.6-31.8); Chloride 108 mmol/L (96-109); Glucose 96 mg/dL (70-110); Potassium 4.6 mmol/L (3.5-5.5); Sodium 139 mmol/L (135-145)
== END | disposition home or self-care (01) ==
LOC: LABPAT 12:52
PROVIDERS: ATTEND Urology
DX: Z01.812 Encounter for preprocedural laboratory examination (principal); C61 Malignant neoplasm of prostate
CPT/HCPCS: 36415; 80048; 85025

== ENCOUNTER 2024-03-30 12:25 | Day surgery (SDC) | payer MEDICARE, OTHER ==
--- NOTE | 2024-03-30 12:29 | P.HPIHPCON ---
History of Present Illness H&P Date: 03/30/24 Chief Complaint: Prostate cancer This is a 64-year-old male with history of [place] 7(4+3) prostate cancer he elected to proceed with radiation therapy. Option for SpaceOAR gel placement was discussed with him, risk of bleeding, infection, rectal perforation was discussed. Discussed with him the rationale of doing this was to reduce the rectal toxicity, discussed potential of developing toxicity even with SpaceOAR gel placement Consent for Procedure: I have explained the operation/procedure to the patient, including the risks, benefits, side effects, alternative therapies (including not receiving the proposed treatment or service), the likelihood of the patient achieving his/her goals, and potential recuperation problems for the procedure/sedation/analgesia, as well as any blood products, if indicated. I also explained to the patient the risks, benefits and side effects of the alternatives, as well as the risks related to not receiving the proposed procedure, care, treatment, or services. Past Medical History Past Medical History: Coronary Artery Disease (CAD), Cancer, CVA/TIA, GERD/Reflux, Hyperlipidemia, Myocardial Infarction ([place]), Pneumonia Additional Past Medical History / Comment(s): pneumonia, closed head injury, neuropathy back and feet, current prostate cancer, No residuals from stroke. heart attack long ago per pt. Last Myocardial Infarction Date:: unknown History of Any Multi-Drug Resistant Organisms: None Reported Past Surgical History: Back Surgery, Heart Catheterization With Stent, Joint Replacement, Orthopedic Surgery Additional Past Surgical History / Comment(s): esophogeal surgery, left femur and left hip with rods, bilateral knee replacement, colonoscopy Past Anesthesia/Blood Transfusion Reactions: No Reported Reaction Date of Last Stent Placement:: unknown Smoking Status: Current every day smoker - Past Family History Mother History Unknown: Yes Family Medical History: Cancer, Coronary Artery Disease (CAD) Sister(s) Family Medical History: Coronary Artery Disease (CAD) Medications and Allergies Home Medications Medication Instructions Recorded Confirmed Type Pantoprazole [Protonix] 40 mg PO AC-BRKFST 30 Days #30 tab 11/03/23 03/29/24 Rx HYDROcodone/APAP 10-325MG [[place] 1 tab PO BID PRN 02/19/24 03/29/24 History 10-325] Atorvastatin [Lipitor] 40 mg PO DAILY 30 Days #30 tab 03/11/24 03/29/24 Rx DULoxetine HCL [Cymbalta] 60 mg PO BID 30 Days #60 cap 03/11/24 03/29/24 Rx Gabapentin [Neurontin] 800 mg PO TID #0 cap 03/11/24 03/29/24 Rx LORazepam [Ativan] 0.5 mg PO DAILY 30 Days #30 tab 03/11/24 03/29/24 Rx QUEtiapine FUMARATE [SEROquel] 300 mg PO HS 30 Days #30 tablet 03/11/24 03/29/24 Rx Sertraline [Zoloft] 100 mg PO DAILY 30 Days #30 tab 03/11/24 03/29/24 Rx busPIRone HCl [Buspar] 10 mg PO BID 30 Days #60 tab 03/11/24 03/29/24 Rx traZODone HCL [Desyrel] 100 mg PO HS PRN 30 Days #30 tab 03/11/24 03/29/24 Rx Docusate Sodium 100 mg PO DAILY 03/29/24 03/29/24 History Allergies Allergy/AdvReac Type Severity Reaction Status Date / Time No Known Allergies Allergy Verified 03/29/24 08:55 Surgical - Exam - General no distress, no pain - Eyes normal ocular movement, no pale - ENT normal nares, normal mucosa - Respiratory normal expansion, normal respiratory effort - Abdomen Abdomen: soft, non tender Assessment and Plan Assessment: OR for SpaceOAR gel placement
[2024-03-30] MEDS: IV FLUID CONTINUATION 1,000 ML IV ONE (13:19)
[2024-03-30 13:27] VITALS: TEMP 97
[2024-03-30] MEDS: LACTATED RINGERS 1,000 ML IV SCH (13:40)
[2024-03-30] MEDS: MIDAZOLAM 2 MG/2 ML VIAL IV ONE (13:46)
[2024-03-30] MEDS ORDERED: PROPOFOL 10 MG/ML 20 ML VIAL IV ONE (14:56)
[2024-03-30] MEDS ORDERED: fentaNYL (PF) 50 MCG/ML 2 ML AMP ONE (14:56)
[2024-03-30] MEDS ORDERED: MIDAZOLAM 2 MG/2 ML VIAL ONE (14:56)
[2024-03-30] MEDS: LIDOCAINE 2% INJ 20 MG/ML SQ ONE ×2 (15:09)
--- NOTE | 2024-03-30 15:26 | P.OP ---
Date of Procedure: 03/30/24 Preoperative Diagnosis: Prostate cancer Postoperative Diagnosis: Same Procedure(s) Performed: SpaceOAR gel placement Implants: SpaceOAR gel Anesthesia: MAC Estimated Blood Loss (ml): 5 Pathology: none sent Condition: stable Disposition: PACU Indications for Procedure: This is a 64-year-old male with history of [place] 7(4+3) prostate cancer he elected to proceed with radiation therapy. Option for SpaceOAR gel placement was discussed with him, risk of bleeding, infection, rectal perforation was discussed. Discussed with him the rationale of doing this was to reduce the rectal toxicity, discussed potential of developing toxicity even with SpaceOAR gel placement Description of Procedure: The patient was taken to the operating room and placed in the dorsolithotomy position, with his legs supported in Kelvin stirrups. The external genitalia was prepped and draped sterilely. The transrectal ultrasound probe was placed intrarectally. The prostate was imaged. The probe was then placed within the stabilizing stand. A spinal needle was advanced under ultrasonic guidance to the level of the urogenital diaphragm, and lidocaine was used to infiltrate the tissues as the needle was withdrawn. Next, the SpaceOAR needle was passed through the midline of the perineum, 1-2 cm anterior to the anal opening. The needle was slowly advanced under ultrasonic guidance until the needle tip was located within the fat plane between the prostate and rectum, at the level of the mid prostate gland. The needle was confirmed to be midline on the axial imaging. A small amount of normal saline was injected for hydrodissection. Next, the SpaceOAR components were mixed and loaded into the Y connector per protocol. The Y connector was then connected to the needle, and the components were injected slowly over a course of approximately 10 seconds. A total of 10 ml was injected. Significant distance was created between the prostate and rectum, as desired. It should be noted that at no point was there any concern of rectal perforation. The needle was withdrawn, as well as the transrectal ultrasound probe, and the procedure was terminated. The patient tolerated the procedure well and was taken to the recovery room in stable condition
[2024-03-30 15:33] VITALS: BP 96/57; PULSE 70; RESP 16
== END 2024-03-30 16:07 | disposition home or self-care (01) ==
LOC: OR 12:25
PROVIDERS: ATTEND Urology
DX: C61 Malignant neoplasm of prostate (principal); I25.10 Atherosclerotic heart disease of native coronary artery without angina pectoris; I25.2 Old myocardial infarction; E78.5 Hyperlipidemia, unspecified; K21.9 Gastro-esophageal reflux disease without esophagitis; I67.9 Cerebrovascular disease, unspecified; F17.210 Nicotine dependence, cigarettes, uncomplicated; F32.A Depression, unspecified; F41.9 Anxiety disorder, unspecified; Z86.73 Personal history of transient ischemic attack (TIA), and cerebral infarction without residual deficits; Z82.49 Family history of ischemic heart disease and other diseases of the circulatory system; Z96.653 Presence of artificial knee joint, bilateral; Z79.899 Other long term (current) drug therapy; Z79.02 Long term (current) use of antithrombotics/antiplatelets
CPT/HCPCS: 55876; 55874; C1889; J2250; J3010; J2704; J2003

== ENCOUNTER → 2024-04-02 | Outpatient (CLI) | payer MEDICARE, OTHER ==
--- NOTE | 2024-04-06 14:02 | PE ---
EXAMINATION TYPE: PET CT fusion skull to thigh DATE OF EXAM: 04/02/2024 CLINICAL INDICATION:Male, 64 years old with history of C61 PROSTATE CANCER; TECHNIQUE: Following the intravenous administration of 6.16 mCi of Ga-68 Illuccix (PSMA), whole bod y images are performed from the skull base to the midthigh. Images are reviewed on the computer in t he coronal, axial, and sagittal planes. Reconstructed rotating images are created on independent wor kstation and reviewed on the computer. A non-contrast CT is performed in conjunction with the PET s can. CT DLP: 360 mGycm, Automated exposure control for dose reduction was used. COMPARISON: CT None, PET/CT None, MRI: 10/07/2023 and 03/26/2024 FINDINGS: Mediastinal SUV mean is 1.2. Hepatic parenchyma SUV mean is 6.7. SKULL BASE AND NECK: No suspicious radiotracer activity. CHEST, MEDIASTINUM, AND HILAR REGION: Right apical spiculated nodule measuring 9 mm. No uptake identified. ABDOMEN AND PELVIS: * Uptake within the left prostate gland mid gland max SUV 8.7. * Right posterior peripheral zone near the base max SUV 7.2. MUSCULOSKELETAL STRUCTURES: Suspicious uptake identified examples include: Left rib 4 uptake max 8.7 correlating with sclerotic focus. OTHER CT: Atherosclerosis of the carotid bifurcations and the coronary arteries. Left hip fixation baig rdware appears intact. Moderate degeneration changes left hip. Mild and emphysema changes in lung api fozia. IMPRESSION: 1. Abnormal uptake within the left central gland and the right peripheral zone of the prostate gland concerning for primary adenocarcinoma. There is single focus of uptake within left rib 4 and a scler otic focus concerning for metastatic disease until proven otherwise. 2. Spiculated right upper lung pulmonary nodule measuring 9 mm. (This did not have prostate specific radiotracer uptake) Surveillance imaging recommended in 6 months to ensure stability with CT low dos e chest. [facility], , 04/06/2024 1:59 PM
== END | disposition home or self-care (01) ==
LOC: RADPETMAIN 10:15
PROVIDERS: ATTEND Radiology Radiation Oncology
DX: C61 Malignant neoplasm of prostate (principal); R91.1 Solitary pulmonary nodule; J43.9 Emphysema, unspecified; I25.10 Atherosclerotic heart disease of native coronary artery without angina pectoris
CPT/HCPCS: 78815; A9596

== ENCOUNTER 2024-07-06 22:53 | Emergency (ER) | payer MEDICARE, OTHER ==
[2024-07-06 23:00] VITALS: BP 128/72; PULSE 88; RESP 18; TEMP 97.3
[2024-07-07] MEDS: CEPHALEXIN 500 MG CAP PO STA (00:24)
[2024-07-07 01:21] LABS: Basophils % (A) 0 %; Eosinophils # (A) 0.1 k/uL (0-0.7); Eosinophils % (A) 2 %; HCT 40.4 % (39.0-53.0); HGB 12.7 gm/dL (13.0-17.5); Lymphocytes # (A) 0.7 k/uL (1.0-4.8); Lymphocytes % (A) 15 %; MCH 31.4 pg (25.0-35.0); MCHC 31.5 g/dL (31.0-37.0); MCV 99.6 fL (80.0-100.0); Mean Platelet Volume 7.7; Monocytes # (A) 0.2 k/uL (0-1.0); Monocytes % (A) 5 %; Neutrophils # (A) 3.6 k/uL (1.3-7.7); Neutrophils % (A) 76 %; Platelet Count 151 k/uL (150-450); RBC 4.05 m/uL (4.30-5.90); RDW 13.5 % (11.5-15.5); WBC 4.7 k/uL (3.8-10.6)
[2024-07-07 01:33] LABS: ALT 43 U/L (4-49); AST 45 U/L (17-59); African American GFR (CKD) >90 (>60 ml/min/1.73 sqM); Albumin 3.4 g/dL (3.5-5.0); Alkaline Phosphatase 128 U/L (38-126); Anion Gap 5 mmol/L; Blood Urea Nitrogen 14 mg/dL (9-20); Carbon Dioxide 25 mmol/L (22-30); Chloride 104 mmol/L (98-107); Glucose 91 mg/dL (74-99); Non-African American GFR(CKD) >90 (>60 ml/min/1.73 sqM); Potassium 4.2 mmol/L (3.5-5.1); Sodium 134 mmol/L (137-145); Total Bilirubin 0.3 mg/dL (0.2-1.3); Total Protein 5.5 g/dL (6.3-8.2)
[2024-07-07] MEDS: QUEtiapine 100 MG TAB PO STA (01:35)
[2024-07-07] MEDS: traZODone HCL 100 MG TAB PO STA (01:35)
--- NOTE | 2024-07-07 02:37 | ED ---
Psych HPI - General Chief Complaint: Psychiatric Symptoms Stated Complaint: facial swelling mental health Time Seen by Provider: 07/06/24 23:02 Source: patient Mode of arrival: ambulatory - History of Present Illness Initial Comments: This patient is a 64-year-old man who presents to have evaluation for 2 complaints. First complaint is that he feels his underlying depression is getting worse. Patient states he has been bothered by Patient also complains of some right facial itching and's states that his face feels swollen. Patient denies any eye pain or change in vision. No facial pressure. Denies dental pain or congestion. MD Complaint: feels depressed -: days(s) Associated Psychiatric Symptoms: depression History of same: Yes Quality: getting worse Improves With: none Worsens With: none - Related Data Home Medications Medication Instructions Recorded Confirmed HYDROcodone/APAP 10-325MG [[place] 1 tab PO BID PRN 02/19/24 03/30/24 10-325] Docusate Sodium 100 mg PO DAILY 03/29/24 03/30/24 Previous Rx's Medication Instructions Recorded Pantoprazole [Protonix] 40 mg PO AC-BRKFST 30 Days #30 tab 11/03/23 Atorvastatin [Lipitor] 40 mg PO DAILY 30 Days #30 tab 03/11/24 DULoxetine HCL [Cymbalta] 60 mg PO BID 30 Days #60 cap 03/11/24 Gabapentin [Neurontin] 800 mg PO TID #0 cap 03/11/24 LORazepam [Ativan] 0.5 mg PO DAILY 30 Days #30 tab 03/11/24 QUEtiapine FUMARATE [SEROquel] 300 mg PO HS 30 Days #30 tablet 03/11/24 Sertraline [Zoloft] 100 mg PO DAILY 30 Days #30 tab 03/11/24 busPIRone HCl [Buspar] 10 mg PO BID 30 Days #60 tab 03/11/24 traZODone HCL [Desyrel] 100 mg PO HS PRN 30 Days #30 tab 03/11/24 Cephalexin [Keflex] 500 mg PO Q6HR #28 cap 07/07/24 valACYclovir HCL [Valacyclovir] 1,000 mg PO TID #21 tab 07/07/24 Allergies Allergy/AdvReac Type Severity Reaction Status Date / Time No Known Allergies Allergy Verified 07/06/24 23:00 Review of Systems ROS Statement: Those systems with pertinent positive or pertinent negative responses have been documented in the HPI. ROS Other: All systems not noted in ROS Statement are negative. Constitutional: Denies: fever, chills Eyes: Denies: eye pain, eye discharge, vision change ENT: Denies: ear pain, dental pain, congestion Respiratory: Denies: cough, dyspnea Cardiovascular: Denies: chest pain, palpitations Gastrointestinal: Denies: abdominal pain, nausea, vomiting Skin: Reports: as per HPI, rash. Denies: lesions Neurological: Denies: headache, weakness, numbness Psychiatric: Reports: depression. Denies: auditory hallucinations, visual hallucinations, homicidal thoughts, suicidal thoughts Past Medical History Past Medical History: Coronary Artery Disease (CAD), CVA/TIA, Hyperlipidemia, Myocardial Infarction ([place]), Pneumonia Additional Past Medical History / Comment(s): pneumonia, closed head injury, neuropathy Last Myocardial Infarction Date:: unknown History of Any Multi-Drug Resistant Organisms: None Reported Past Surgical History: Back Surgery, Heart Catheterization With Stent, Joint Replacement, Orthopedic Surgery Additional Past Surgical History / Comment(s): esophogeal surgery, left femur and left hip with rods, bilateral knee replacement Past Anesthesia/Blood Transfusion Reactions: No Reported Reaction Date of Last Stent Placement:: unknown Past Psychological History: Anxiety, Depression Smoking Status: Current every day smoker Past Alcohol Use History: None Reported Past Drug Use History: Marijuana - Past Family History Mother History Unknown: Yes General Exam Limitations: no limitations General appearance: alert, in no apparent distress Head exam: Present: atraumatic, normocephalic Eye exam: Present: normal appearance, PERRL, EOMI. Absent: scleral icterus, conjunctival injection, nystagmus ENT exam: Present: normal oropharynx, TM's normal bilaterally Neck exam: Present: normal inspection, full ROM. Absent: tenderness, menin gismus, lymphadenopathy Respiratory exam: Present: normal lung sounds bilaterally. Absent: respiratory distress, wheezes, rales, rhonchi, stridor, accessory muscle use Cardiovascular Exam: Present: regular rate, normal rhythm, normal heart sounds. Absent: systolic murmur, diastolic murmur, rubs, gallop GI/Abdominal exam: Present: soft. Absent: tenderness Extremities exam: Present: normal inspection, normal capillary refill Back exam: Present: normal inspection Neurological exam: Present: alert Skin exam: Present: warm, dry, intact, rash, other (Patient does have some mild right facial dermatitis. No erythema or warmth.). Absent: cyanosis, diaphoretic, erythema, urticaria, vesicles, petechiae, pallor, mottled Course Vital Signs 07/06/24 22:58 Temperature 97.3 F L Pulse Rate 88 Respiratory 18 Rate Blood Pressure 128/72 O2 Sat by Pulse 96 Oximetry Medical Decision Making - Medical Decision Making Was pt. sent in by a medical professional or institution (, PA, [employer], urgent care, hospital, or halfway...) When possible be specific @ -[No] Did you speak to anyone other than the patient for history (EMS, parent, family, police, friend...)? What history was obtained from this source @ -[No] Did you review nursing and triage notes (agree or disagree)? Why? @ -[I reviewed and agree with nursing and triage notes] Were old charts reviewed (outside hosp., previous admission, EMS record, old EKG, old radiological studies, urgent care reports/EKG's, halfway records)? Report findings @ -[No old charts were reviewed] Differential Diagnosis (chest pain, altered mental status, abdominal pain women, abdominal pain men, vaginal bleeding, weakness, fever, dyspnea, syncope, headache, dizziness, GI bleed, back pain, seizure, CVA, palpatations, mental health, musculoskeletal)? @ -[Differential Mental Health Depression, anxiety, bipolar, psychosis, schizophrenia, borderline personality, situational depression, adjustment disorder, behavioral disorder, brain tumor, malingering, substance abuse, encephalopathy, medication reaction, dementia, hypothyroidism, degenerative neurologic disorder, lupus.... This is not meant to be all-inclusive list EKG interpreted by me (3pts min.). @ -[As above] X-rays interpreted by me (1pt min.). @ -[None done] CT interpreted by me (1pt min.). @ -[None done] U/S interpreted by me (1pt. min.). @ -[None done] What testing was considered but not performed or refused? (CT, X-rays, U/S, labs)? Why? @ -[None] What meds were considered but not given or refused? Why? @ -[None] Did you discuss the management of the patient with other professionals (professionals i.e. , PA, [employer], lab, RT, psych nurse, rn social services, lawyers, teacher, placement officer, high risk case manager)? Give summary @ -[Case discussed with EPS personnel Was smoking cessation discussed for >3mins.? @ -[No] Was critical care preformed (if so, how long)? @ -[No] Were there social determinants of health that impacted care today? How? (Homelessness, low income, unemployed, alcoholism, drug addiction, transportation, low edu. Level, literacy, decrease access to med. care, assisted, rehab)? @ -[No] Was there de-escalation of care discussed even if they declined (Discuss DNR or withdrawal of care, Hospice)? DNR status @ -[No] What co-morbidities impacted this encounter? (DM, HTN, Smoking, COPD, CAD, Cancer, CVA, ARF, Chemo, Hep., AIDS, mental health diagnosis, sleep apnea, morbid obesity)? @ -[None] Was patient admitted / discharged? Hospital course, mention meds given and route, prescriptions, significant lab abnormalities, going to OR and other pertinent info. @ -[Patient is seen and evaluated and then also had evaluation by EPS related to his mood disorder. Related to patient's facial dermatitis, discussed appropriate further care as well as follow-up to ensure that this is not the early onset of cellulitis or other onset of shingles. Patient has no evidence of ocular involvement Undiagnosed new problem with uncertain prognosis? @ -[No] Drug Therapy requiring intensive monitoring for toxicity (Heparin, Nitro, Insulin, Cardizem)? @ -[No] Were any procedures done? @ -[No] Diagnosis/symptom? @ -[Facial dermatitis, possible cellulitis versus shingles Mood disorder Acute, or Chronic, or Acute on Chronic? @ -[Acute Uncomplicated (without systemic symptoms) or Complicated (systemic symptoms)? @ -[Uncomplicated Side effects of treatment? @ -[No] Exacerbation, Progression, or Severe Exacerbation? @ -[No] Poses a threat to life or bodily function? How? (Chest pain, [place], [place], pneumonia, PE, COPD, DKA, ARF, appy, cholecystitis, CVA, Diverticulitis, Homicidal, Suicidal, threat to staff... and all critical care pts) @ -[No] All treatments are based on ideal body weight as in ED triage - Lab Data Result diagrams: 07/07/24 01:10 07/07/24 01:10 Lab Results 07/07/24 07/07/24 07/07/24 Range/Units 01:10 01:10 01:47 WBC 4.7 (3.8-10.6) k/uL RBC 4.05 L (4.30-5.90) m/uL Hgb 12.7 L (13.0-17.5) gm/dL Hct 40.4 (39.0-53.0) % MCV 99.6 (80.0-100.0) fL MCH 31.4 (25.0-35.0) pg MCHC 31.5 (31.0-37.0) g/dL RDW 13.5 (11.5-15.5) % Plt Count 151 (150-450) k/uL MPV 7.7 Neutrophils % 76 % Lymphocytes % 15 % Monocytes % 5 % Eosinophils % 2 % Basophils % 0 % Neutrophils # 3.6 (1.3-7.7) k/uL Lymphocytes # 0.7 L (1.0-4.8) k/uL Monocytes # 0.2 (0-1.0) k/uL Eosinophils # 0.1 (0-0.7) k/uL Basophils # 0.0 (0-0.2) k/uL Sodium 134 L (137-145) mmol/L Potassium 4.2 (3.5-5.1) mmol/L Chloride 104 (98-107) mmol/L Carbon Dioxide 25 (22-30) mmol/L Anion Gap 5 mmol/L BUN 14 (9-20) mg/dL Creatinine 0.53 L (0.66-1.25) mg/dL Est GFR (CKD-EPI)AfAm >90 (>60 ml/min/1.73 sqM) Est GFR (CKD-EPI)NonAf >90 (>60 ml/min/1.73 sqM) Glucose 91 (74-99) mg/dL Calcium 9.0 (8.4-10.2) mg/dL Total Bilirubin 0.3 (0.2-1.3) mg/dL AST 45 (17-59) U/L ALT 43 (4-49) U/L Alkaline Phosphatase 128 H (38-126) U/L Total Protein 5.5 L (6.3-8.2) g/dL Albumin 3.4 L (3.5-5.0) g/dL Influenza Type A (PCR) Not Detected (Not Detectd) Influenza Type B (PCR) Not Detected (Not Detectd) RSV (PCR) Not Detected (Not Detectd) SARS-CoV-2 (PCR) Not Detected (Not Detectd) Disposition Clinical Impression: Mood disorder, Dermatitis Disposition: HOME SELF-CARE Condition: Good Prescriptions: Cephalexin [Keflex] 500 mg PO Q6HR #28 cap valACYclovir HCL [Valacyclovir] 1,000 mg PO TID #21 tab Is patient prescribed a controlled substance at d/c from ED?: No Referrals: Malina Bass MD [Primary Care Provider] - 1-2 days Shlomo Everett MD [STAFF PHYSICIAN] - 1-2 days
[2024-07-07 06:02] LABS: Influenza A Not Detected (Not Detectd); Influenza B Not Detected (Not Detectd); RSV Not Detected (Not Detectd)
[2024-07-07] MEDS ORDERED: valACYclovir HCL 1,000 MG TABLET PO SCH (09:00)
== END 2024-07-07 02:47 | disposition home or self-care (01) ==
LOC: EC 22:53
DX: F39 Unspecified mood [affective] disorder (principal); L30.9 Dermatitis, unspecified; F17.200 Nicotine dependence, unspecified, uncomplicated; Z11.52 Encounter for screening for COVID-19
CPT/HCPCS: 36415; 80053; 82075; 85025; 87636; 99285

== ENCOUNTER → 2024-07-06 | Outpatient (CLI) | payer MEDICARE, OTHER | END | disposition home or self-care (01) | LOC: LABWHC1 12:22 | PROVIDERS: ATTEND Radiology Radiation Oncology | DX: C61 Malignant neoplasm of prostate (principal); F17.210 Nicotine dependence, cigarettes, uncomplicated | CPT/HCPCS: 36415; 84153 ==

== ENCOUNTER → 2024-07-08 | Outpatient (CLI) | payer MEDICARE, OTHER ==
--- NOTE | 2024-07-08 17:43 | CTL ---
EXAMINATION TYPE: CT Low Dose Lung DATE OF EXAM: 07/08/2024 5:23 PM COMPARISON: None. CLINICAL INDICATION: Male, 64 years old with history of Z12.2, F17.210 NICOTINE DEPENDANCE, Lung scre ening for nicotine dependence of 1ppd x45 years, current smoker. TECHNIQUE: Axial images were obtained at 5 mm thick sections. Reconstructed images are reviewed on [employer] computer in the coronal plane. Contrast used: mL of , (none if empty) Oral contrast used: (none if empty) CT DLP: 91.3 mGycm, Automated exposure control for dose reduction was used. FINDINGS: Portion of the thyroid visualized is normal. There is a spiculated density in the right apex measuring 1.7 x 0.8 cm. Series 4 image 37. This has e nlarged from the prior study. Previous measurement 0.9 cm. PET/CT recommended for additional evaluati on. Given additional findings of potential prostate cancer PSMA PET/CT may be recommended. Differenti al could include second primary or a metastatic lesion. There is a small area of increased density in the posterior right apex. Image 41. Emphysematous changes are present. No enlarged mediastinal or hilar adenopathy is evident. The ascending aorta diameter at the level o f the main pulmonary artery is 3.5 cm. The main pulmonary artery diameter at the bifurcation is 2.7 cm. Coronary artery calcification is present. Limited CT sections are obtained through the upper abdomen. Abdomen is essentially unremarkable. IMPRESSION: 1. Enlarging suspicious spiculated mass right apex. Follow-up PET/CT PSMA recommended. [facility], , 07/08/2024 5:40 PM
== END | disposition home or self-care (01) ==
LOC: RADCTMAIN 15:47
PROVIDERS: ATTEND Internal Medicine
DX: Z12.2 Encounter for screening for malignant neoplasm of respiratory organs (principal); F17.210 Nicotine dependence, cigarettes, uncomplicated
CPT/HCPCS: 71271

== ENCOUNTER → 2024-08-05 | Outpatient (CLI) | payer MEDICARE, OTHER ==
--- NOTE | 2024-08-06 10:12 | PE ---
EXAMINATION TYPE: PET CT fusion skull to thigh DATE OF EXAM: 08/05/2024 COMPARISON: Prior PET/CT April 02, 2024. Prior low-dose lung screening CT July 08, 2024 HISTORY: Solitary pulmonary nodule. Abnormal recent CT. History of prostate cancer. TECHNIQUE: Following the intravenous administration of 8.64 mCi of F-18 FDG, whole body images are p erformed from the skull base to the midthigh. Images are reviewed on the computer in the coronal, ax ial, and sagittal planes. Reconstructed rotating images are created on independent workstation and r eviewed on the computer. A localization and attenuation correction CT is performed in conjunction w ith the PET scan. Blood glucose level equals 102 SCAN: Initial Scan FINDINGS: SKULL BASE AND NECK: No areas of abnormal hypermetabolic uptake. CHEST, MEDIASTINUM, AND HILAR REGION: Moderate underlying emphysematous change is redemonstrated. The re is persistent right apical 1.3 x 0.6 cm spiculated nodule axial image 68. This does not show abnor mal hypermetabolic uptake on this or prior PET/CT. New nodule or nodular consolidation in the right middle lobe just above the diaphragm measuring 1.8 x 1.0 cm axial image 129 has some abnormal hypermetabolic uptake, max SUV is 6.85. ABDOMEN AND PELVIS: Normal excretion is seen. Nonspecific bowel uptake are identified. No areas of levine spicious abnormal hypermetabolic uptake noted. OSSEOUS STRUCTURES: No areas of suspicious abnormal hypermetabolic uptake including the left fourth r ib at area prior uptake on prior PET/CT. Stable sclerotic focus axial image [address]: A left anterior medial wall loop recorder is redemonstrated. Moderate calcified plaque bila teral carotid bulb level again seen. There is [id number] coronary calcifications and/or stent s redemonstrated. Surgical change to the left proximal femur is noted. IMPRESSION: Area of concern anterior right lung apex favors scar. New hypermetabolic nodule or nodula r consolidation favors infectious or inflammatory change. Correlate clinically. Neoplasm not entirely excluded though felt less likely. Follow-up short-term diagnostic CT in 2-3 months time after treatm ent is advised to reassess to rule out malignant etiology. [facility], , 08/06/2024 10:10 AM
== END | disposition home or self-care (01) ==
LOC: RADPETMAIN 10:06
PROVIDERS: ATTEND Internal Medicine
DX: R91.8 Other nonspecific abnormal finding of lung field (principal)
CPT/HCPCS: 78815; A9552

== ENCOUNTER → 2024-10-15 | Outpatient (CLI) | payer MEDICARE, OTHER ==
[2024-10-15 14:42] LABS: African American GFR (CKD) >90 (>60 ml/min/1.73 sqM); Blood Urea Nitrogen 11 mg/dL (9-20); Non-African American GFR(CKD) >90 (>60 ml/min/1.73 sqM)
--- NOTE | 2024-10-15 15:14 | CT ---
EXAMINATION TYPE: CT chest w con CT DLP: 273.7 mGycm, Automated exposure control for dose reduction was used. DATE OF EXAM: 10/15/2024 3:04 PM COMPARISON: PET/CT 08/05/2024, CT low-dose lung 07/08/2024, PET/CT 04/02/2024 CLINICAL INDICATION:Male, 64 years old with history of R91.1 SOLITARY PULMONARY NODULE; PHH, Lung nod ule, h/o prostate cancer TECHNIQUE: Multiple axial images were obtained through the chest following the administration of 100 cc of Isovue 300. . Coronal and sagittal reformats reviewed. FINDINGS: LUNGS/ PLEURA: No pleural effusion, pneumothorax, focal consolidation. Fat filled right [place] her reji. Moderate centrilobular emphysematous changes. Stable spiculated focal opacity within the right lung apex measuring up to 1.4 cm (series 4, image 11). Stable right upper lobe 4.5 mm nodular opacity (series 4, image 12). Stable peripheral left upper lobe 2.9 mm pulmonary nodular opacity (series 4, image 28). No new or enlarging pulmonary nodules. AIRWAY: Patent and unremarkable.. HEART: Size within normal limits.Ectasia of the aortic root measuring up to 3.9 cm. No pericardial ef fusion. Moderate coronary artery calcifications present. MEDIASTINUM: No gross evidence of adenopathy. VASCULATURE: No aortic aneurysm. Moderate atherosclerotic calcification of the aorta and its branche s. Most pronounced involving the visualized abdominal aorta. No central pulmonary embolism identified . MUSCULOSKELETAL: No acute osseous abnormalities. No aggressive osseous lesion. DISH of the thoracic s pine. SOFT TISSUES/LYMPH NODES: Loop recorder within the left anterior chest wall. LOWER NECK: No significant findings. UPPER ABDOMEN: No significant findings. IMPRESSION: 1. Stable right lung apex spiculated nodular opacity. This again may represent a scar. Additional co uple of stable pulmonary nodule opacities from prior exams. No new or enlarging pulmonary nodules. Fo llow-up CT chest in 12 months is recommended. 2. Moderate emphysematous changes. [facility], , 10/15/2024 3:12 PM
== END | disposition home or self-care (01) ==
LOC: RADCTMAIN 13:55
PROVIDERS: ATTEND Internal Medicine Critical Care Medicine
DX: J43.2 Centrilobular emphysema (principal); R91.8 Other nonspecific abnormal finding of lung field
CPT/HCPCS: 82565; 84520; 71260; 36415; Q9967

== ENCOUNTER 2024-10-26 17:20 | Observation (INO) | payer MEDICARE, OTHER ==
--- NOTE | 2024-10-26 18:14 | ED ---
GI Bleed HPI - General Source: patient, RN notes reviewed Mode of arrival: ambulatory Limitations: no limitations <Seun Comer - Last Filed: 10/26/24 18:13> <Venkatesh Barnett - Last Filed: 10/26/24 20:08> - General Chief complaint: GI Bleed Stated complaint: Urogenital Time Seen by Provider: 10/26/24 17:37 - History of Present Illness Initial comments: Quick note: This is a 64-year-old male with history of prostate CA and ulcer bleeding presenting for GI bleed x 7 days. Patient states he has had dark red blood in his stool for the past week with associated abdominal pain x 5 days and blood in his urine for the past 4 days. (Seun Comer) Dictation was produced using [employer] dictation software. please excuse any grammatical, word or spelling errors. Chief Complaint: 64-year-old male with history of peptic ulcer presents to the emergency department bright blood per rectum History of Present Illness: Patient 64-year-old male presents emergency department with bright red blood per rectum for the last 2 to 3 days. Patient also states that he has had 1 day of hematuria. History of peptic ulcer diagnosed here in this hospital. He does report associated diffuse abdominal tenderness. The ROS documented in this emergency department record has been reviewed and c onfirmed by me. Those systems with pertinent positive or negative responses have been documented in the HPI. All other systems are other negative and/or noncontributory. (Venkatesh Barnett) - Related Data Home Medications Medication Instructions Recorded Confirmed HYDROcodone/APAP 10-325MG [Storden 1 tab PO BID PRN 02/19/24 03/30/24 10-325] Docusate Sodium 100 mg PO DAILY 03/29/24 03/30/24 Previous Rx's Medication Instructions Recorded Pantoprazole [Protonix] 40 mg PO AC-BRKFST 30 Days #30 tab 11/03/23 Atorvastatin [Lipitor] 40 mg PO DAILY 30 Days #30 tab 03/11/24 DULoxetine HCL [Cymbalta] 60 mg PO BID 30 Days #60 cap 03/11/24 Gabapentin [Neurontin] 800 mg PO TID #0 cap 03/11/24 LORazepam [Ativan] 0.5 mg PO DAILY 30 Days #30 tab 03/11/24 QUEtiapine FUMARATE [SEROquel] 300 mg PO HS 30 Days #30 tablet 03/11/24 Sertraline [Zoloft] 100 mg PO DAILY 30 Days #30 tab 03/11/24 busPIRone HCl [Buspar] 10 mg PO BID 30 Days #60 tab 03/11/24 traZODone HCL [Desyrel] 100 mg PO HS PRN 30 Days #30 tab 03/11/24 Cephalexin [Keflex] 500 mg PO Q6HR #28 cap 07/07/24 valACYclovir HCL [Valacyclovir] 1,000 mg PO TID #21 tab 07/07/24 Lidocaine 5% Patch [Lidoderm] 1 patch TOPICAL DAILY #30 patch 09/23/24 Allergies Allergy/AdvReac Type Severity Reaction Status Date / Time No Known Allergies Allergy Verified 07/06/24 23:00 Review of Systems ROS Other: All systems not noted in ROS Statement are negative. <Seun Comer - Last Filed: 10/26/24 18:13> ROS Other: All systems not noted in ROS Statement are negative. <Venkatesh Barnett - Last Filed: 10/26/24 20:08> ROS Statement: Those systems with pertinent positive or pertinent negative responses have been documented in the HPI. Past Medical History Past Medical History: Coronary Artery Disease (CAD), Cancer, CVA/TIA, Hyperlipi demia, Myocardial Infarction (ME), Pneumonia Additional Past Medical History / Comment(s): pneumonia, closed head injury, neuropathy, prostate ca lung ca Last Myocardial Infarction Date:: unknown History of Any Multi-Drug Resistant Organisms: None Reported Past Surgical History: Back Surgery, Heart Catheterization With Stent, Joint Replacement, Orthopedic Surgery Additional Past Surgical History / Comment(s): esophogeal surgery, left femur and left hip with rods, bilateral knee replacement Past Anesthesia/Blood Transfusion Reactions: No Reported Reaction Date of Last Stent Placement:: unknown Past Psychological History: Anxiety, Depression Smoking Status: Current every day smoker Past Alcohol Use History: None Reported Past Drug Use History: Marijuana - Past Family History Mother History Unknown: Yes <Seun Comer - Last Filed: 10/26/24 18:13> General Exam Limitations: no limitations <Seun Comer - Last Filed: 10/26/24 18:13> <Venkatesh Barnett - Last Filed: 10/26/24 20:08> - General Exam Comments Initial Comments: Visual Physical Exam Vital signs reviewed General: Well-appearing, nontoxic, no acute distress. Head: Normocephalic, atraumatic Eyes: PERRLA, EOMI ENT: Airway patent Chest: Nonlabored breathing Skin: No visual rash, normal skin tone Neuro: Alert and oriented 3 Musculoskeletal: No gross abnormalities (Seun Comer) PHYSICAL EXAM: General Impression: Alert and oriented x3, not in acute distress HEENT: Normocephalic atraumatic, extra-ocular movements intact, pupils equal and reactive to light bilaterally, mucous membranes moist. Cardiovascular: Heart regular rate and rhythm Chest: Able to complete full sentences, no retractions, no tachypnea Abdomen: abdomen soft, diffuse palpatory tenderness, non-distended, no organomegaly Musculoskeletal: Pulses present and equal in all extremities, no peripheral edema Motor: no focal deficits noted Neurological: CN II-XII grossly intact, no focal motor or sensory deficits noted Skin: Intact with no visualized rashes Psych: Normal affect and mood (Venkatesh Barnett) Course Vital Signs 10/26/24 17:40 Temperature 98 F Pulse Rate 81 Respiratory 16 Rate Blood Pressure 117/73 O2 Sat by Pulse 98 Oximetry Medical Decision Making <Seun Comer - Last Filed: 10/26/24 18:13> - Lab Data Result diagrams: 10/26/24 18:22 10/26/24 18:22 <Venkatesh Barnett - Last Filed: 10/26/24 20:08> - Medical Decision Making I completed the quick note portion of this chart signed JAMES Parrish (Seun Comre) My EKG interpretation: Ventricular rate 60, sinus rhythm, parable 163, cures 89, QTc 4 6. No NC prolongation, no QTC prolongation, no ST or T-wave changes noted. Overall, this EKG is unremarkable Was pt. sent in by a medical professional or institution ([facility] [employer], ACADEMIC AFFAIRS COORDINATOR, urgent care, hospital, or prison...) When possible be specific @ -No Did you speak to anyone other than the patient for history (EMS, parent, family, police, friend...)? What history was obtained from this source @ -No Did you review nursing and triage notes (agree or disagree)? Why? @ -I reviewed and agree with nursing and triage notes Were old charts reviewed (outside hosp., previous admission, EMS record, old EKG, old radiological studies, urgent care reports/EKG's, prison records)? Report findings @ -No old charts were reviewed Differential Diagnosis (chest pain, altered mental status, abdominal pain women, abdominal pain men, vaginal bleeding, musculoskeletal, weakness, fever, dyspnea, syncope, headache, dizziness, GI bleed, back pain, seizure, CVA, palpatations, mental health)? @ -Differential Abdominal Pain Men: Appendicitis, cholecystitis, diverticulosis, ischemic bowel, pancreatitis, hepatitis, UTI, gastroenteritis, AAA, incarcerated hernia, bowel obstruction, constipation, inflammatory bowel, hepatitis, peptic ulcer disease, splenic infa rction, perforated viscus, testicular torsion, this is not meant to be an all- inclusive list EKG interpreted by me (3pts min.). @ -None done X-rays interpreted by me (1pt min.). @ -None done CT interpreted by me (1pt min.). @ -CT abdomen pelvis shows ileus. There is incidental finding of aortic occlusion with reconstitution at the femoral artery U/S interpreted by me (1pt. min.). @ -None done What testing was considered but not performed or refused? (CT, X-rays, U/S, labs)? Why? @ -None What meds were considered but not given or refused? Why? @ -None Was smoking cessation discussed for >3mins.? @ -No Were there social determinants of health that impacted care today? How? (Homelessness, low income, unemployed, alcoholism, drug addiction, transportation, low edu. Level, literacy, decrease access to med. care, long term, rehab)? @ -No Was there de-escalation of care discussed even if they declined (Discuss DNR or withdrawal of care, Hospice)? DNR status @ -No What co-morbidities impacted this encounter? (DM, HTN, Smoking, COPD, CAD, Cancer, CVA, ARF, Chemo, Hep., AIDS, mental health diagnosis, sleep apnea, morbid obesity)? @ -Peptic ulcer disease Was patient admitted / discharged? Hospital course, mention meds given and route, prescriptions, significant lab abnormalities, going to OR and other pertinent info. @ -64-year-old well-appearing male presents to the emergency department with abdominal pain and reported bright red blood per rectum. Physical examination is benign. Rectal exam is unremarkable. Vital signs are stable. Laboratory evaluation obtained. Hemoglobin stable patient on anticoagulation medications. Laboratory evaluation is otherwise unremarkable. CT shows ileus. Patient significantly tender. There is incidental finding of aortic occlusion with reconstitution at the femoral artery. Patient denies any lower extremity symptoms acutely. Case discussed with vascular surgery who is agreeable with consultation. Case discussed with hospitalist for admission. General surgery on consult Did you discuss the management of the patient with other professionals (professionals i.e. , PA, ACADEMIC AFFAIRS COORDINATOR, lab, RT, psych nurse, social media content specialist, hydroelectric production manager, teacher, chief digital media officer, case operator)? Give summary @ -See above Was critical care preformed (if so, how long)? @ -No Undiagnosed new problem with uncertain prognosis? @ -No Drug Therapy requiring intensive monitoring for toxicity (Heparin, Nitro, Insulin, Cardizem)? @ -No Were any procedures done? @ -No Diagnosis/symptom? Acute, or Chronic, or Acute on Chronic? Uncomplicated (without systemic symptoms) or Complicated (systemic symptoms)? @ -Ileus Side effects of treatment? @ -No Exacerbation, Progression, or Severe Exacerbation? @ -No Poses a threat to life or bodily function? How? (Chest pain, USA, ME, pneumonia, PE, COPD, DKA, ARF, appy, cholecystitis, CVA, Diverticulitis, Homicidal, Suicidal, threat to staff... and all critical care pts) @ -yes (Venkatesh Barnett) - Lab Data Lab Results 10/26/24 10/26/24 10/26/24 Range/Units 18:16 18:22 18:22 WBC 4.86 (4.50-10.00) 10*3/uL RBC 4.01 L (4.40-5.60) 10*6/uL Hgb 12.9 L (13.0-17.0) g/dL Hct 38.3 L (39.6-50.0) % MCV 95.5 (80.0-97.0) fL MCH 32.2 H (27.0-32.0) pg MCHC 33.7 (32.0-37.0) g/dL Plt Count 185 (140-440) 10*3/uL MPV 10.4 (9.5-12.2) fL Immature Gran % (Auto) 0.2 % Neutrophils % 59.2 % Lymphocytes % 31.3 % Monocytes % 6.4 % Eosinophils % 2.5 % Basophils % 0.4 % Immature Gran # 0.01 (0.00-0.04) 10*3/uL Neutrophils # 2.88 (1.80-7.70) 10*3/uL Lymphocytes # 1.52 (0.90-5.00) 10*3/uL Monocytes # 0.31 (0.20-1.00) 10*3/uL Eosinophils # 0.12 (0.04-0.35) 10*3/uL Basophils # 0.02 (0.00-0.10) 10*3/uL PT 10.4 (10.0-12.5) sec INR 0.9 (<1.2) APTT 23.3 (22.0-30.0) sec Sodium (137-145) mmol/L Potassium (3.5-5.1) mmol/L Chloride (98-107) mmol/L Carbon Dioxide (22-30) mmol/L Anion Gap mmol/L BUN (9-20) mg/dL Creatinine (0.66-1.25) mg/dL Est GFR (CKD-EPI)AfAm (>60 ml/min/1.73 sqM) Est GFR (CKD-EPI)NonAf (>60 ml/min/1.73 sqM) Glucose (74-99) mg/dL Plasma Lactic Acid Sergio (0.7-2.0) mmol/L Calcium (8.4-10.2) mg/dL Total Bilirubin (0.2-1.3) mg/dL AST (17-59) U/L ALT (4-49) U/L Alkaline Phosphatase (38-126) U/L Troponin I (0.000-0.034) ng/mL Total Protein (6.3-8.2) g/dL Albumin (3.5-5.0) g/dL Lipase (23-300) U/L Blood Type A Positive Blood Type Confirm Blood Type Recheck No Previous Record Bld Type Recheck Status CABO Indicated Antibody Screen NEGATIVE Spec Expiration Date 10/29/2024 - 231510/26/24 10/26/24 10/26/24 Range/Units 18:22 18:22 18:22 WBC (4.50-10.00) 10*3/uL RBC (4.40-5.60) 10*6/uL Hgb (13.0-17.0) g/dL Hct (39.6-50.0) % MCV (80.0-97.0) fL MCH (27.0-32.0) pg MCHC (32.0-37.0) g/dL Plt Count (140-440) 10*3/uL MPV (9.5-12.2) fL Immature Gran % (Auto) % Neutrophils % % Lymphocytes % % Monocytes % % Eosinophils % % Basophils % % Immature Gran # (0.00-0.04) 10*3/uL Neutrophils # (1.80-7.70) 10*3/uL Lymphocytes # (0.90-5.00) 10*3/uL Monocytes # (0.20-1.00) 10*3/uL Eosinophils # (0.04-0.35) 10*3/uL Basophils # (0.00-0.10) 10*3/uL PT (10.0-12.5) sec INR (<1.2) APTT (22.0-30.0) sec Sodium 136 L (137-145) mmol/L Potassium 4.4 (3.5-5.1) mmol/L Chloride 111 H (98-107) mmol/L Carbon Dioxide 20 L (22-30) mmol/L Anion Gap 5 mmol/L BUN 11 (9-20) mg/dL Creatinine 0.70 (0.66-1.25) mg/dL Est GFR (CKD-EPI)AfAm >90 (>60 ml/min/1.73 sqM) Est GFR (CKD-EPI)NonAf >90 (>60 ml/min/1.73 sqM) Glucose 95 (74-99) mg/dL Plasma Lactic Acid Sergio 0.7 (0.7-2.0) mmol/L Calcium 8.9 (8.4-10.2) mg/dL Total Bilirubin 0.2 (0.2-1.3) mg/dL AST 57 (17-59) U/L ALT 45 (4-49) U/L Alkaline Phosphatase 139 H (38-126) U/L Troponin I <0.012 (0.000-0.034) ng/mL Total Protein 5.6 L (6.3-8.2) g/dL Albumin 3.4 L (3.5-5.0) g/dL Lipase 110 (23-300) U/L Blood Type Blood Type Confirm Blood Type Recheck Bld Type Recheck Status Antibody Screen Spec Expiration Date 10/26/24 Range/Units 18:28 WBC (4.50-10.00) 10*3/uL RBC (4.40-5.60) 10*6/uL Hgb (13.0-17.0) g/dL Hct (39.6-50.0) % MCV (80.0-97.0) fL MCH (27.0-32.0) pg MCHC (32.0-37.0) g/dL Plt Count (140-440) 10*3/uL MPV (9.5-12.2) fL Immature Gran % (Auto) % Neutrophils % % Lymphocytes % % Monocytes % % Eosinophils % % Basophils % % Immature Gran # (0.00-0.04) 10*3/uL Neutrophils # (1.80-7.70) 10*3/uL Lymphocytes # (0.90-5.00) 10*3/uL Monocytes # (0.20-1.00) 10*3/uL Eosinophils # (0.04-0.35) 10*3/uL Basophils # (0.00-0.10) 10*3/uL PT (10.0-12.5) sec INR (<1.2) APTT (22.0-30.0) sec Sodium (137-145) mmol/L Potassium (3.5-5.1) mmol/L Chloride (98-107) mmol/L Carbon Dioxide (22-30) mmol/L Anion Gap mmol/L BUN (9-20) mg/dL Creatinine (0.66-1.25) mg/dL Est GFR (CKD-EPI)AfAm (>60 ml/min/1.73 sqM) Est GFR (CKD-EPI)NonAf (>60 ml/min/1.73 sqM) Glucose (74-99) mg/dL Plasma Lactic Acid Sergio (0.7-2.0) mmol/L Calcium (8.4-10.2) mg/dL Total Bilirubin (0.2-1.3) mg/dL AST (17-59) U/L ALT (4-49) U/L Alkaline Phosphatase (38-126) U/L Troponin I (0.000-0.034) ng/mL Total Protein (6.3-8.2) g/dL Albumin (3.5-5.0) g/dL Lipase (23-300) U/L Blood Type Blood Type Confirm A Positive Blood Type Recheck Bld Type Recheck Status Antibody Screen Spec Expiration Date Disposition <Seun Comer - Last Filed: 10/26/24 18:13> Decision Time: 20:08 <Venkatesh Barnett - Last Filed: 10/26/24 20:08> Clinical Impression: Ileus Disposition: ADMITTED IP TO THIS HOSP Condition: Fair Referrals: Malina Bass MD [Primary Care Provider] - 1-2 days
[2024-10-26 18:31] LABS: Basophils # (A) 0.02 10*3/uL (0.00-0.10); Basophils % (A) 0.4 %; Eosinophils # (A) 0.12 10*3/uL (0.04-0.35); Eosinophils % (A) 2.5 %; HCT 38.3 % (39.6-50.0); HGB 12.9 g/dL (13.0-17.0); Lymphocytes # (A) 1.52 10*3/uL (0.90-5.00); Lymphocytes % (A) 31.3 %; MCH 32.2 pg (27.0-32.0); MCHC 33.7 g/dL (32.0-37.0); MCV 95.5 fL (80.0-97.0); Mean Platelet Volume 10.4 fL (9.5-12.2); Monocytes # (A) 0.31 10*3/uL (0.20-1.00); Monocytes % (A) 6.4 %; Neutrophils # (A) 2.88 10*3/uL (1.80-7.70); Neutrophils % (A) 59.2 %; Platelet Count 185 10*3/uL (140-440); RBC 4.01 10*6/uL (4.40-5.60); WBC 4.86 10*3/uL (4.50-10.00)
[2024-10-26 18:41] LABS: INR 0.9 (<1.2); Partial Thromboplastin Time 23.3 sec (22.0-30.0); Prothrombin Time 10.4 sec (10.0-12.5)
[2024-10-26 18:47] LABS: ALT 45 U/L (4-49); AST 57 U/L (17-59); African American GFR (CKD) >90 (>60 ml/min/1.73 sqM); Albumin 3.4 g/dL (3.5-5.0); Alkaline Phosphatase 139 U/L (38-126); Anion Gap 5 mmol/L; Blood Urea Nitrogen 11 mg/dL (9-20); Calcium 8.9 mg/dL (8.4-10.2); Carbon Dioxide 20 mmol/L (22-30); Chloride 111 mmol/L (98-107); Glucose 95 mg/dL (74-99); Lipase 110 U/L (23-300); Non-African American GFR(CKD) >90 (>60 ml/min/1.73 sqM); Potassium 4.4 mmol/L (3.5-5.1); Sodium 136 mmol/L (137-145); Total Bilirubin 0.2 mg/dL (0.2-1.3); Total Protein 5.6 g/dL (6.3-8.2)
--- NOTE | 2024-10-26 19:41 | CT ---
EXAMINATION TYPE: CT abdomen pelvis w con DATE OF EXAM: 10/26/2024 7:26 PM COMPARISON: 08/05/2024 PET/CT CLINICAL INDICATION: Male, 64 years old with history of brbpr, abdominal pain, abdominal pain, hematu roslyn, blood in stool, known ulcer TECHNIQUE: Axial images were obtained from above the diaphragm to the pubic rami in the axial plane a t 5 mm thick sections. Reconstructed images are reviewed on the computer in the coronal plane. CONTRAST: 100 mL of Isovue 300. Study performed without Oral Contrast DLP: 742.2 mGycm, Automated exposure control for dose reduction was used. FINDINGS: Limited CT sections are obtained the lung bases. The lung bases are clear. CT ABDOMEN: Liver: Normal Spleen: Normal Pancreas: Normal Adrenal glands: The adrenal glands are normal. Gallbladder: Normal Kidneys: No masses are evident. No hydronephrosis is present. No cysts are present. Delayed images were obtained through the kidneys, which remain unremarkable. Aorta: Vascular calcification is within the aorta. Contrast extends to the mid abdominal aorta. No a neurysm is evident. No contrast within the distal aorta or iliac vessels is identified. Common femora l arteries appear to be reconstituted from collateral flow. Inferior vena cava: Normal. CT PELVIS: Loops of bowel within the abdomen and pelvis are normal. There are prominent fluid-filled small bowel loops present. Correlate for ileus. Some fluid is within the colon. Gastroenteritis could be conside red. Appendix: Not identified. No dilated tubular structure or inflammatory changes are evident Urinary bladder: Normal. Genitourinary structures: Prostate appears normal Osseous structures: No suspicious lytic or sclerotic lesions. Left hip is present. Degenerative joint changes at the bilateral hips. Sacroiliac joint degenerative changes on the left. Facet degenerative changes are present. IMPRESSION: 1. Obstruction of the distal abdominal aorta and iliac vessels. Femoral arteries are reconstituted f rom collateral flow. 2. Small bowel ileus and/or gastroenteritis. 3. [facility], , 10/26/2024 7:39 PM
[2024-10-26] MEDS ORDERED: ACETAMINOPHEN TAB 325 MG TAB PO PRN (20:05)
[2024-10-26] MEDS ORDERED: NALOXONE 0.4 MG/ML 1 ML VIAL IV PRN (20:05)
[2024-10-26] MEDS: MORPHINE SULFATE 4 MG/ML SYRINGE IV STA (20:17)
[2024-10-26] MEDS: SODIUM CHLORIDE 0.9% 1,000 ML IV SCH (21:19)
[2024-10-26] MEDS: HYDROmorphone 1 MG/ML 1 ML SYRINGE IVP PRN (23:18)
[2024-10-27] MEDS ORDERED: ACETAMINOPHEN TAB 325 MG TAB PO PRN (00:11)
[2024-10-27] MEDS ORDERED: LORazepam 0.5 MG TAB PO PRN (00:11)
[2024-10-27] MEDS: QUEtiapine 100 MG TAB PO SCH (00:42)
[2024-10-27] MEDS: traZODone HCL 100 MG TAB PO SCH (00:42)
[2024-10-27 00:47] LABS: Appearance,Urine Clear (Clear); Bilirubin,Urine Negative (Negative); Blood,Urine Negative (Negative); Color,Urine Colorless; Glucose,Urine (UA) Negative (Negative); Ketones,Urine Negative (Negative); Leukocyte Esterase,Urine Negative (Negative); Nitrite,Urine Negative (Negative); PH, Urine 5.5 (5.0-8.0); Protein,Urine Negative (Negative); Urobilinogen,Urine <2.0 mg/dL (<2.0)
[2024-10-27 01:07] LABS: Specific Gravity,Urine >1.050 (1.001-1.035)
[2024-10-27] MEDS: PANTOPRAZOLE 40 MG TABLET PO SCH (08:11)
[2024-10-27] MEDS: ATORVASTATIN 80 MG TAB PO SCH (08:12)
[2024-10-27] MEDS: DULoxetine HCL 60 MG CAPSULE.DR PO SCH (08:12)
[2024-10-27] MEDS: GABAPENTIN 400 MG CAP PO SCH (08:12)
[2024-10-27] MEDS: TAMSULOSIN 0.4 MG CAP.ER.24H PO SCH (08:12)
[2024-10-27] MEDS: FERROUS SULFATE 325 MG TAB PO SCH (08:12)
[2024-10-27] MEDS: HYDROcodone/APAP 10-325MG 1 EACH TAB PO PRN (08:13)
[2024-10-27 13:01] VITALS: BMI 23.0
--- NOTE | 2024-10-27 13:51 | P.HPIM ---
History of Present Illness H&P Date: 10/27/24 Chief Complaint: Rectal bleeding/ileus/possible obstruction of the distal aorta HISTORY OF PRESENT ILLNESS: This is a 64-year-old male a fairly new patient to my practice with a previous medical history significant for prostate cancer, chronic tobacco use and dependence with chronic obstructive pulmonary disease, mixed hyperlipidemia, chronic alcohol use and dependence with alcohol abuse, peripheral neuropathy, bipolar disorder with moderate dangelo, mild cognitive disorder, patient presented to the emergency department at [facility] yesterday because of 2-day history of rectal bleeding associated with intractable nausea and vomiting, without any hematemesis, patient was seen and evaluated Emergency Department, underwent CT scan of the abdomen pelvis that showed evidence of ileus along with with what appears to be an obstruction of the distal abdominal aorta with reconstitution of the iliac and femoral arteries from collateral vessels., because of that the patient was admitted to hospital for evaluation by general surgery as well as by vascular surgery, he was started on IV fluid resuscitation a full normal saline 130 cc cc an hour, he was placed on Zofran 4 mg IV push every 6 hours, as well as Protonix 40 mg IV push every 24 hours, he will be seen in consultation by general surgery for possible EGD and if the EGD is negative we will go for colonoscopy after that. Vascular surgery consultation for possible distal aorta obstruction. REVIEW OF SYSTEMS: Constitutional: No documented fever, no chills, no night sweats. No weight adrián nge. No weakness, fatigue or lethargy. No daytime sleepiness. EENT: No headache. No blurred vision or double vision, no loss of vision. No loss of Hearing, no ringing in the ears, no dizziness. No nasal drainage or congestion. No epistaxis. No sore throat. Lungs: No shortness of breath, OCCASIONAL cough, no sputum production. No wheezing. Reports dyspnea with activity. Cardiovascular: No chest pain, no lower extremity edema. No palpitations. No paroxysmal nocturnal dyspnea. No orthopnea. No lightheadedness or dizziness. No syncopal episodes. Abdominal: Reports abdominal pain. Positive for nausea, vomiting. No diarrhea. No constipation. rteports bloody no tarry stools reports loss of appetite. Genitourinary: No dysuria, increased frequency, urgency. No urinary retention. Musculoskeletal: No myalgias. No muscle weakness, no gait dysfunction, no frequent falls. positive for back pain. No neck pain. Integumentary: No wounds, no lesions. No rash or pruritus. No unusual bruising. No change in hair or nails. Neurologic: No aphasia. No facial droop. No change in mentation. No head injury. No headache. No paralysis. No paresthesia. Psychiatric: positive for depression. positive for anxiety. positive for mood swings. Endocrine: No abnormal blood sugars. No weight change. PAST MEDICAL HISTORY: Coronary artery disease status post PCI of the RCA 12/25/2018 Prostate cancer Mixed hyperlipidemia Chronic alcohol use and dependence Chronic tobacco use and dependence with COPD Bipolar disorder with moderate dangelo Mild cognitive disorder. PAST SURGICAL HISTORY: Right total knee replacement 2021 Left total knee replacement 2022 Left hip replacement with caitlin placement 2017 Lumbar fusion 1999 Left heart catheterization with PCI x 6 of the RCA 12/25/2018 Loop recorder 08/06/2021 Palate fracture surgery from fall 2009 Thoracotomy for esophageal stricture anastomosis 1999. SOCIAL HISTORY: Patient smokes about a half a pack a day since the age of 14, he continues to smoke, he drinks on a daily basis, he denies any drug use or abuse. FAMILY HISTORY: Father of unknown cause, mother at the age of 82 from heart failure and CAD, patient had 1 brother older brother who who at the age of 81 from heart failure patient has 1 sister 78-year-old alive and healthy patient has 1 son 4-year-old alive and healthy and 38 with lumbar pain drug abuse and overdose with a brain injury patient has 1 daughter 38-year-old who is alive and healthy. PHYSICAL EXAMINATION: General: 64-year-old male laying down in bed in no apparent distress. HEENT: Head is atraumatic, normocephalic, pupils were equal round reactive to light and recommendation, extraocular muscle movement were intact, sclera nonicteric, conjunctivae were pale, mucous membranes of the mouth are somewhat dry. Neck: Supple, no JVP, normal carotid upstroke bilaterally, no lymphadenopathy. Chest: Decreased breath sounds at the bases, few rhonchi, no expiratory wheezes, no chest wall tenderness, no intercostal retractions. Heart: First heart sound is normal, second heart sounds normal there is systolic ejection murmur 2 over cystic in the left sternal border. Abdomen: Soft, mild tenderness to the left lower quadrant no rebound or guarding positive bowel sounds, no hepatosplenomegaly. Extremities: There is no edema no calf tenderness DP +2 bilaterally. Neurologic examination: Patient is awake alert and oriented X3, cranial nerves II-12 appear grossly intact, muscle power were 5 out of 5 in upper extremities and 5 out of 5 in bilateral lower extremities, deep tendon reflexes normal bilaterally. ASSESSMENT AND PLAN: 1. Rectal bleed with ileus patient will be admitted to the hospital, will continue to monitor the patient CBC, keep the hemoglobin above 8 all the time, continue IV fluid resuscitation but decrease to 100 cc an hour, monitor the patient CBC, start the patient on Protonix 40 mg IV push every 24 hours, general surgery consultation for further evaluation recommendation possibly EGD tomorrow morning 2. Obstruction of the distal abdominal aorta with reconstitution of the iliac and femoral arteries from collaterals vascular surgery consultation for their opinion. 3. History of coronary artery disease status post PCI of the RCA back in 2018. Continue patient on rosuvastatin 20 mg once every day, monitor the patient (, keep LDL 55-70. 4. Hyperlipidemia. Continue rosuvastatin 20 mg orally once every day, monitor lipid panel. 5. History of esophageal stricture status post thoracotomy and anastomosis back in 1999 patient is scheduled to go for EGD tomorrow morning, continue Protonix 40 mg IV push every 24 hours. 6. History of bipolar disorder with moderate dangelo. Continue current duloxetine 60 mg orally twice every day, continue with Seroquel 300 mg orally once every day as well as mirtazapine 15 mg orally once every day. 7. History of chronic low back pain. Continue patient on gabapentin 800 mg orally 3 times every day continue current pain management as well. 8. Tobacco dependence with chronic obstructive pulmonary disease. Smoking cessation and counseling and increased risk of CAD, CVA and malignancy. Will st art the patient on nicotine patch 14 mg daily. 9. History of anemia continue iron supplement 325 mg orally twice every day. 10. Chronic alcohol use and dependence. Abstinence from alcohol no evidence of any delirium at this point in time. Continue lorazepam 0.5 mg orally once at bedtime as needed. 11. DVT prophylaxis. Lovenox 40 mg subcutaneous every 24 hours along with bilateral knee-high SIRIA hose. 12. GI prophylaxis. Continue patient on Protonix 40 mg IV push every 24 hours. 13. Admit to inpatient. Estimated length of stay 2 midnights. 14. Patient is full code. Past Medical History Past Medical History: Coronary Artery Disease (CAD), Cancer, CVA/TIA, Hyperlipidemia, Myocardial Infarction ([place]), Pneumonia Additional Past Medical History / Comment(s): pneumonia, closed head injury, neuropathy, prostate ca, R lung ca Last Myocardial Infarction Date:: unknown History of Any Multi-Drug Resistant Organisms: None Reported Past Surgical History: Back Surgery, Heart Catheterization With Stent, Joint Replacement, Orthopedic Surgery Additional Past Surgical History / Comment(s): esophogeal surgery, left femur a nd left hip with rods, bilateral knee replacement Past Anesthesia/Blood Transfusion Reactions: No Reported Reaction Date of Last Stent Placement:: unknown Past Psychological History: Anxiety, Depression Smoking Status: Current every day smoker Past Alcohol Use History: None Reported Additional Past Alcohol Use History / Comment(s): Pt reports no ETOH xone year Past Drug Use History: Marijuana - Past Family History Mother History Unknown: Yes Medications and Allergies Home Medications Medication Instructions Recorded Confirmed Type HYDROcodone/APAP 10-325MG [[place] 1 tab PO Q6HR PRN 02/19/24 10/26/24 History 10-325] DULoxetine HCL [Cymbalta] 60 mg PO BID 30 Days #60 cap 03/11/24 10/26/24 Rx QUEtiapine FUMARATE [SEROquel] 300 mg PO HS 30 Days #30 tablet 03/11/24 10/26/24 Rx Acetaminophen [Tylenol 8 Hour] 650 mg PO Q6H PRN 10/26/24 10/26/24 History Ferrous Sulfate [Feosol] 325 mg PO BID 10/26/24 10/26/24 History Gabapentin 800 mg PO TID 10/26/24 10/26/24 History LORazepam [Ativan] 0.5 mg PO HS PRN 10/26/24 10/26/24 History Mirtazapine [Remeron] 15 mg PO HS 10/26/24 10/26/24 History Pantoprazole [Protonix] 40 mg PO DAILY 10/26/24 10/26/24 History Rosuvastatin Calcium [Crestor] 40 mg PO DAILY 10/26/24 10/26/24 History Tamsulosin [Flomax] 0.4 mg PO BID 10/26/24 10/26/24 History traZODone HCL [Desyrel] 100 mg PO HS 10/26/24 10/26/24 History Allergies Allergy/AdvReac Type Severity Reaction Status Date / Time No Known Allergies Allergy Verified 10/26/24 20:44 Physical Exam Vitals: Vital Signs Temp Pulse Pulse Resp BP BP Pulse Ox 10/27/24 12:17 98.4 F 58 L 18 120/77 96 10/27/24 07:09 97.9 F 69 20 108/68 97 10/27/24 01:30 97.9 F 62 14 132/76 96 10/26/24 22:39 97.6 F 53 L 14 131/84 100 10/26/24 20:11 84 18 128/60 99 10/26/24 17:40 98 F 81 16 117/73 98 Intake and Output 10/26/24 10/27/24 10/27/24 22:59 06:59 14:59 Output Total 725 400 Balance -725 -400 Output: Urine 725 400 Other: Voiding Method Toilet Toilet Urinal Urinal # Voids 1 Weight 66.678 kg 66.678 kg Results CBC & Chem 7: 10/26/24 18:22 10/26/24 18:22 Labs: Abnormal Lab Results - Last 24 Hours (Table) 10/26/24 10/26/24 10/26/24 Range/Units 18:22 18:22 22:50 RBC 4.01 L (4.40-5.60) 10*6/uL Hgb 12.9 L (13.0-17.0) g/dL Hct 38.3 L (39.6-50.0) % MCH 32.2 H (27.0-32.0) pg Sodium 136 L (137-145) mmol/L Chloride 111 H (98-107) mmol/L Carbon Dioxide 20 L (22-30) mmol/L Alkaline Phosphatase 139 H (38-126) U/L Total Protein 5.6 L (6.3-8.2) g/dL Albumin 3.4 L (3.5-5.0) g/dL Ur Specific [place] >1.050 H (1.001-1.035) Thrombosis Risk Factor Assmnt - Choose All That Apply Any of the Below Risk Factors Present?: No Other Risk Factors: Yes Each Risk Factor Represents 2 Points: Age 61-74 years Other congenital or acquired thrombophilia - If yes, enter type in comment: No Thrombosis Risk Factor Assessment Total Risk Factor Score: 2 Thrombosis Risk Factor Assessment Level: Low Risk
[2024-10-27 14:36] LABS: Basophils # (A) 0.02 10*3/uL (0.00-0.10); Basophils % (A) 0.4 %; Eosinophils # (A) 0.08 10*3/uL (0.04-0.35); Eosinophils % (A) 1.7 %; HCT 39.9 % (39.6-50.0); HGB 12.6 g/dL (13.0-17.0); Lymphocytes # (A) 1.11 10*3/uL (0.90-5.00); MCHC 31.6 g/dL (32.0-37.0); Mean Platelet Volume 10.1 fL (9.5-12.2); Monocytes # (A) 0.25 10*3/uL (0.20-1.00); Monocytes % (A) 5.4 %; Neutrophils # (A) 3.16 10*3/uL (1.80-7.70); Neutrophils % (A) 68.3 %; Platelet Count 165 10*3/uL (140-440); RBC 4.07 10*6/uL (4.40-5.60); RDW 15.1 % (11.5-14.5); WBC 4.63 10*3/uL (4.50-10.00)
[2024-10-27 14:51] LABS: ALT 40 U/L (4-49); AST 46 U/L (17-59); African American GFR (CKD) >90 (>60 ml/min/1.73 sqM); Albumin 3.2 g/dL (3.5-5.0); Albumin/Globulin Ratio 1.5; Alkaline Phosphatase 142 U/L (38-126); Anion Gap 5 mmol/L; Blood Urea Nitrogen 8 mg/dL (9-20); Calcium 8.9 mg/dL (8.4-10.2); Carbon Dioxide 24 mmol/L (22-30); Chloride 108 mmol/L (98-107); Globulin 2.1 g/dL; Glucose 100 mg/dL (74-99); Non-African American GFR(CKD) >90 (>60 ml/min/1.73 sqM); Potassium 4.5 mmol/L (3.5-5.1); Sodium 137 mmol/L (137-145); Total Bilirubin 0.3 mg/dL (0.2-1.3); Total Protein 5.3 g/dL (6.3-8.2)
[2024-10-27] MEDS: ONDANSETRON 4 MG/2 ML VIAL IVP PRN (16:01)
--- NOTE | 2024-10-27 21:32 | P.GSCN ---
History of Present Illness Consult date: 10/27/24 Reason for Consult: Hematuria Requesting physician: Malina Bass History of present illness: The patient is a 64-year-old white male diagnosed with prostate cancer in February 2024. His PSA level was 11.5, and 9 of 13 biopsies showed evidence of prostate cancer with a maximal Rocio score of 7 (4+3). He was treated with 6 months of androgen deprivation therapy along with IMRT, which he completed on June 01, 2024. He now presents with a several day history of upper abdominal pain, dark red blood per rectum, and gross hematuria. The hematuria has resolved. Review of Systems - Gastrointestinal Reports as per HPI - Genitourinary Reports hematuria, Denies dysuria, Denies flank pain Past Medical History Past Medical History: Coronary Artery Disease (CAD), Cancer, CVA/TIA, Hyperlipidemia, Myocardial Infarction ([place]), Pneumonia Additional Past Medical History / Comment(s): pneumonia, closed head injury, neuropathy, prostate ca, R lung ca Last Myocardial Infarction Date:: unknown History of Any Multi-Drug Resistant Organisms: None Reported Past Surgical History: Back Surgery, Heart Catheterization With Stent, Joint Replacement, Orthopedic Surgery Additional Past Surgical History / Comment(s): esophogeal surgery, left femur and left hip with rods, bilateral knee replacement Past Anesthesia/Blood Transfusion Reactions: No Reported Reaction Date of Last Stent Placement:: unknown Past Psychological History: Anxiety, Depression Smoking Status: Current every day smoker Past Alcohol Use History: None Reported Additional Past Alcohol Use History / Comment(s): Pt reports no ETOH x one year Past Drug Use History: Marijuana - Past Family History Mother History Unknown: Yes Medications and Allergies Home Medications Medication Instructions Recorded Confirmed Type HYDROcodone/APAP 10-325MG [[place] 1 tab PO Q6HR PRN 02/19/24 10/26/24 History 10-325] DULoxetine HCL [Cymbalta] 60 mg PO BID 30 Days #60 cap 03/11/24 10/26/24 Rx QUEtiapine FUMARATE [SEROquel] 300 mg PO HS 30 Days #30 tablet 03/11/24 10/26/24 Rx Acetaminophen [Tylenol 8 Hour] 650 mg PO Q6H PRN 10/26/24 10/26/24 History Ferrous Sulfate [Feosol] 325 mg PO BID 10/26/24 10/26/24 History Gabapentin 800 mg PO TID 10/26/24 10/26/24 History LORazepam [Ativan] 0.5 mg PO HS PRN 10/26/24 10/26/24 History Mirtazapine [Remeron] 15 mg PO HS 10/26/24 10/26/24 History Pantoprazole [Protonix] 40 mg PO DAILY 10/26/24 10/26/24 History Rosuvastatin Calcium [Crestor] 40 mg PO DAILY 10/26/24 10/26/24 History Tamsulosin [Flomax] 0.4 mg PO BID 10/26/24 10/26/24 History traZODone HCL [Desyrel] 100 mg PO HS 10/26/24 10/26/24 History Allergies Allergy/AdvReac Type Severity Reaction Status Date / Time No Known Allergies Allergy Verified 10/26/24 20:44 Surgical - Exam Vital Signs Temp Pulse Resp BP Pulse Ox 98 F 81 16 117/73 98 10/26/24 17:40 10/26/24 17:40 10/26/24 17:40 10/26/24 17:40 10/26/24 17:40 - General well developed, well nourished, no distress - Respiratory normal respiratory effort - Psychiatric oriented to time, oriented to person, oriented to place, speech is normal, memory intact Results - Labs 10/27/24 14:03 10/27/24 14:03 Abnormal Lab Results - Last 24 Hours (Table) 10/26/24 10/26/24 10/26/24 Range/Units 18:22 18:22 22:50 RBC 4.01 L (4.40-5.60) 10*6/uL Hgb 12.9 L (13.0-17.0) g/dL Hct 38.3 L (39.6-50.0) % MCV (80.0-97.0) fL MCH 32.2 H (27.0-32.0) pg MCHC (32.0-37.0) g/dL RDW (11.5-14.5) % Sodium 136 L (137-145) mmol/L Chloride 111 H (98-107) mmol/L Carbon Dioxide 20 L (22-30) mmol/L BUN (9-20) mg/dL Creatinine (0.66-1.25) mg/dL Glucose (74-99) mg/dL Alkaline Phosphatase 139 H (38-126) U/L Total Protein 5.6 L (6.3-8.2) g/dL Albumin 3.4 L (3.5-5.0) g/dL Ur Specific [place] >1.050 H (1.001-1.035) 10/27/24 10/27/24 Range/Units 14:03 14:03 RBC 4.07 L (4.40-5.60) 10*6/uL Hgb 12.6 L (13.0-17.0) g/dL Hct (39.6-50.0) % MCV 98.0 H (80.0-97.0) fL MCH (27.0-32.0) pg MCHC 31.6 L (32.0-37.0) g/dL RDW 15.1 H (11.5-14.5) % Sodium (137-145) mmol/L Chloride 108 H (98-107) mmol/L Carbon Dioxide (22-30) mmol/L BUN 8 L (9-20) mg/dL Creatinine 0.55 L (0.66-1.25) mg/dL Glucose 100 H (74-99) mg/dL Alkaline Phosphatase 142 H (38-126) U/L Total Protein 5.3 L (6.3-8.2) g/dL Albumin 3.2 L (3.5-5.0) g/dL Ur Specific [place] (1.001-1.035) Diabetes panel 10/26/24 10/27/24 Range/Units 18:22 14:03 Sodium 136 L 137 (137-145) mmol/L Potassium 4.4 4.5 (3.5-5.1) mmol/L Chloride 111 H 108 H (98-107) mmol/L Carbon Dioxide 20 L 24 (22-30) mmol/L BUN 11 8 L (9-20) mg/dL Creatinine 0.70 0.55 L (0.66-1.25) mg/dL Glucose 95 100 H (74-99) mg/dL Calcium 8.9 8.9 (8.4-10.2) mg/dL AST 57 46 (17-59) U/L ALT 45 40 (4-49) U/L Alkaline Phosphatase 139 H 142 H (38-126) U/L Total Protein 5.6 L 5.3 L (6.3-8.2) g/dL Albumin 3.4 L 3.2 L (3.5-5.0) g/dL Calcium panel 10/26/24 10/27/24 Range/Units 18:22 14:03 Calcium 8.9 8.9 (8.4-10.2) mg/dL Albumin 3.4 L 3.2 L (3.5-5.0) g/dL Pituitary panel 10/26/24 10/27/24 Range/Units 18:22 14:03 Sodium 136 L 137 (137-145) mmol/L Potassium 4.4 4.5 (3.5-5.1) mmol/L Chloride 111 H 108 H (98-107) mmol/L Carbon Dioxide 20 L 24 (22-30) mmol/L BUN 11 8 L (9-20) mg/dL Creatinine 0.70 0.55 L (0.66-1.25) mg/dL Glucose 95 100 H (74-99) mg/dL Calcium 8.9 8.9 (8.4-10.2) mg/dL Adrenal panel 10/26/24 10/27/24 Range/Units 18:22 14:03 Sodium 136 L 137 (137-145) mmol/L Potassium 4.4 4.5 (3.5-5.1) mmol/L Chloride 111 H 108 H (98-107) mmol/L Carbon Dioxide 20 L 24 (22-30) mmol/L BUN 11 8 L (9-20) mg/dL Creatinine 0.70 0.55 L (0.66-1.25) mg/dL Glucose 95 100 H (74-99) mg/dL Calcium 8.9 8.9 (8.4-10.2) mg/dL Total Bilirubin 0.2 0.3 (0.2-1.3) mg/dL AST 57 46 (17-59) U/L ALT 45 40 (4-49) U/L Alkaline Phosphatase 139 H 142 H (38-126) U/L Total Protein 5.6 L 5.3 L (6.3-8.2) g/dL Albumin 3.4 L 3.2 L (3.5-5.0) g/dL - Imaging CT scan - abdomen: report reviewed, image reviewed Assessment and Plan (1) Gross hematuria Current Visit: Yes Status: Acute Code(s): R31.0 - GROSS HEMATURIA SNOMED Code(s): 434727162 Plan: I have reviewed the patient's CT scan, which shows no urologic abnormalities. The hematuria has resolved, and urinalysis obtained at the time of admission showed no evidence of microhematuria. 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 I have suggested to Emmanuel Mabel that he follow-up with Dr. Hart upon discharge to undergo office cystoscopy to rule out intravesical pathology. Please notify me if I can be of any further assistance. Time with Patient: Greater than 30
--- NOTE | 2024-10-27 21:53 | CONS ---
CONSULTATION CHIEF COMPLAINT: Bright red GI bleed. HISTORY OF PRESENT ILLNESS/HOSPITAL COURSE: This is a 64-year-old male with a known history of prostate cancer and peptic ulcer disease. He presented to the hospital with complaints of dark blood in his stools. He also complained of hematuria. He reports that his urine started an orange color and then turned red. He does report some abdominal discomfort. He has been nauseous. His last EGD was about a year ago and that is when he was diagnosed with the peptic ulcer disease. He denies being on any anticoagulation. He is on iron at home. His hemoglobin was 12.[address] scan of the abdomen and pelvis reported ileus and obstruction of the distal aorta, iliac vessels, and vascular surgery is on consult. Surgical Service has been consulted in regard to GI bleed and ileus. REVIEW OF SYSTEMS: Please refer to HPI. Otherwise unremarkable. PHYSICAL EXAMINATION: VITAL SIGNS: Stable. ABDOMEN: Soft, nontender, nondistended. CT scan reports ileus and obstruction of distal abdominal aorta and iliac vessels. LABORATORY DATA: Hemoglobin 12.9, WBC 4.86, sodium 136. Please note, computers are down, unable to dictate all the full report of the CAT scan and lab results. ASSESSMENT: 1. Acute gastrointestinal bleed with dark stools. 2. Hematuria. 3. History of peptic ulcer disease. 4. History of prostate cancer. PLAN: The patient is scheduled for EGD tomorrow with Dr. Navarrete. Abelardo for clear liquid diet today and n.p.o. after midnight. Consult Urology for hematuria. MMODL / IJN: [id number] /
[2024-10-27] MEDS: MIRTAZAPINE 15 MG TAB PO SCH (22:37)
[2024-10-28 07:39] VITALS: RESP 18
--- NOTE | 2024-10-28 08:28 | P.GSCN ---
History of Present Illness Consult date: 10/27/24 History of present illness: Note being redictated as there was downtime in EMR. 64-year-old male presented to the emergency department with complaint of hematuria and blood in his stool. He has history of prostate cancer and peptic ulcer disease. He states that with his peptic ulcer disease he does occasionally have dark stool. He is on iron supplementation. Denies any anticoagulation. He states that hematuria is new and he has never had that issue previously. His last scope was about a year ago. Review of Systems All systems: negative Past Medical History Past Medical History: Coronary Artery Disease (CAD), Cancer, CVA/TIA, Hyperlipidemia, Myocardial Infarction ([place]), Pneumonia Additional Past Medical History / Comment(s): pneumonia, closed head injury, neuropathy, prostate ca, R lung ca Last Myocardial Infarction Date:: unknown History of Any Multi-Drug Resistant Organisms: None Reported Past Surgical History: Back Surgery, Heart Catheterization With Stent, Joint Replacement, Orthopedic Surgery Additional Past Surgical History / Comment(s): esophogeal surgery, left femur and left hip with rods, bilateral knee replacement Past Anesthesia/Blood Transfusion Reactions: No Reported Reaction Date of Last Stent Placement:: unknown Past Psychological History: Anxiety, Depression Smoking Status: Current every day smoker Past Alcohol Use History: None Reported Additional Past Alcohol Use History / Comment(s): Pt reports no ETOH x one year Past Drug Use History: Marijuana - Past Family History Mother History Unknown: Yes Medications and Allergies Home Medications Medication Instructions Recorded Confirmed Type HYDROcodone/APAP 10-325MG [[place] 1 tab PO Q6HR PRN 02/19/24 10/26/24 History 10-325] DULoxetine HCL [Cymbalta] 60 mg PO BID 30 Days #60 cap 03/11/24 10/26/24 Rx QUEtiapine FUMARATE [SEROquel] 300 mg PO HS 30 Days #30 tablet 03/11/24 10/26/24 Rx Acetaminophen [Tylenol 8 Hour] 650 mg PO Q6H PRN 10/26/24 10/26/24 History Ferrous Sulfate [Feosol] 325 mg PO BID 10/26/24 10/26/24 History Gabapentin 800 mg PO TID 10/26/24 10/26/24 History LORazepam [Ativan] 0.5 mg PO HS PRN 10/26/24 10/26/24 History Mirtazapine [Remeron] 15 mg PO HS 10/26/24 10/26/24 History Pantoprazole [Protonix] 40 mg PO DAILY 10/26/24 10/26/24 History Rosuvastatin Calcium [Crestor] 40 mg PO DAILY 10/26/24 10/26/24 History Tamsulosin [Flomax] 0.4 mg PO BID 10/26/24 10/26/24 History traZODone HCL [Desyrel] 100 mg PO HS 10/26/24 10/26/24 History Allergies Allergy/AdvReac Type Severity Reaction Status Date / Time No Known Allergies Allergy Verified 10/26/24 20:44 Surgical - Exam Osteopathic Statement: *. No significant issues noted on an osteopathic structural exam other than those noted in the History and Physical/Consult. Vital Signs Temp Pulse Resp BP Pulse Ox 98 F 81 16 117/73 98 10/26/24 17:40 10/26/24 17:40 10/26/24 17:40 10/26/24 17:40 10/26/24 17:40 - General well nourished, no distress - Neck trachea midline - Respiratory normal respiratory effort - Abdomen Abdomen: soft, non tender - Psychiatric oriented to time, oriented to person, oriented to place Results - Labs 10/27/24 14:03 10/27/24 14:03 Abnormal Lab Results - Last 24 Hours (Table) 10/27/24 10/27/24 Range/Units 14:03 14:03 RBC 4.07 L (4.40-5.60) 10*6/uL Hgb 12.6 L (13.0-17.0) g/dL MCV 98.0 H (80.0-97.0) fL MCHC 31.6 L (32.0-37.0) g/dL RDW 15.1 H (11.5-14.5) % Chloride 108 H (98-107) mmol/L BUN 8 L (9-20) mg/dL Creatinine 0.55 L (0.66-1.25) mg/dL Glucose 100 H (74-99) mg/dL Alkaline Phosphatase 142 H (38-126) U/L Total Protein 5.3 L (6.3-8.2) g/dL Albumin 3.2 L (3.5-5.0) g/dL Diabetes panel 10/27/24 Range/Units 14:03 Sodium 137 (137-145) mmol/L Potassium 4.5 (3.5-5.1) mmol/L Chloride 108 H (98-107) mmol/L Carbon Dioxide 24 (22-30) mmol/L BUN 8 L (9-20) mg/dL Creatinine 0.55 L (0.66-1.25) mg/dL Glucose 100 H (74-99) mg/dL Calcium 8.9 (8.4-10.2) mg/dL AST 46 (17-59) U/L ALT 40 (4-49) U/L Alkaline Phosphatase 142 H (38-126) U/L Total Protein 5.3 L (6.3-8.2) g/dL Albumin 3.2 L (3.5-5.0) g/dL Calcium panel 10/27/24 Range/Units 14:03 Calcium 8.9 (8.4-10.2) mg/dL Albumin 3.2 L (3.5-5.0) g/dL Pituitary panel 10/27/24 Range/Units 14:03 Sodium 137 (137-145) mmol/L Potassium 4.5 (3.5-5.1) mmol/L Chloride 108 H (98-107) mmol/L Carbon Dioxide 24 (22-30) mmol/L BUN 8 L (9-20) mg/dL Creatinine 0.55 L (0.66-1.25) mg/dL Glucose 100 H (74-99) mg/dL Calcium 8.9 (8.4-10.2) mg/dL Adrenal panel 10/27/24 Range/Units 14:03 Sodium 137 (137-145) mmol/L Potassium 4.5 (3.5-5.1) mmol/L Chloride 108 H (98-107) mmol/L Carbon Dioxide 24 (22-30) mmol/L BUN 8 L (9-20) mg/dL Creatinine 0.55 L (0.66-1.25) mg/dL Glucose 100 H (74-99) mg/dL Calcium 8.9 (8.4-10.2) mg/dL Total Bilirubin 0.3 (0.2-1.3) mg/dL AST 46 (17-59) U/L ALT 40 (4-49) U/L Alkaline Phosphatase 142 H (38-126) U/L Total Protein 5.3 L (6.3-8.2) g/dL Albumin 3.2 L (3.5-5.0) g/dL Assessment and Plan Plan: 64-year-old male with concern for GI bleed. Hemoglobin currently stable. With history of peptic ulcer disease and continued dark stool, we will plan for upper endoscopy. Risks, benefits and alternatives were provided to the patient. All questions answered. Plan for EGD in AM.
[2024-10-28] MEDS: PANTOPRAZOLE 40 MG/10 ML VIAL IVP SCH (08:44)
[2024-10-28] MEDS: NICOTINE 14MG/24HR PATCH TRANSDERM SCH (08:45)
[2024-10-28] MEDS: LORazepam 0.5 MG TAB PO STA (11:23)
[2024-10-28] MEDS: ENOXAPARIN 40 MG/0.4 ML SYRINGE SQ SCH (11:25)
[2024-10-28] MEDS ORDERED: PROPOFOL 10 MG/ML 20 ML VIAL IV ONE (12:28)
[2024-10-28] MEDS ORDERED: LIDOCAINE 2% (PF) 20 MG/ML 5 ML VIAL ONE (12:28)
[2024-10-28] MEDS: IV FLUID CONTINUATION 1,000 ML IV ONE (12:35)
--- NOTE | 2024-10-28 12:43 | P.PCN ---
Date of Procedure: 10/28/24 Preoperative Diagnosis: GI bleed Postoperative Diagnosis: Gastritis Healing gastric ulcer Procedure(s) Performed: EGD with biopsy Anesthesia: JENSEN Surgeon: Adilia Navarrete Pathology: none sent (Biopsy of duodenum, antrum, GE junction) Condition: stable Disposition: floor Indications for Procedure: 64-year-old male presented with concern for GI bleed and hematuria. He does have a history of peptic ulcer disease. Plan is for upper endoscopy for further evaluation. Risks, benefits and alternatives provided to the patient. All questions answered Operative Findings: Gastritis Healing gastric ulcer Description of Procedure: The patient was brought into the endoscopy suite and placed in left lateral decubitus position. Adequate sedation was achieved using conscious sedation. A bite-block was placed and an endoscope was placed in the oropharynx and advanced under endoscopic visualization. The endoscope was advanced through the esophagus into the stomach, through the gastric antrum and in through the pylorus. The third portion of duodenum was visualized. The endoscope was then slowly withdrawn. The first portion of duodenum was noted to have mild inflammatory changes. Biopsies were taken. The antrum was noted to have inflammatory changes. Biopsies were taken. Area of previous ulcer was noted with tattoo in the area. This appears to be healing and portions are well- healed. The gastric body distended normally and the gastric folds appeared normal and flattened with insufflation. A retroflexed view of the fundus and GE junction revealed mild hiatal hernia. GE junction appeared normal and biopsies were taken. The esophagus appeared endoscopically normal. Excess air was removed and the scope was withdrawn and the procedure was completed. The patient was sent to PACU in stable condition.
--- NOTE | 2024-10-28 12:55 | P.GSCN ---
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 He had a CT of the abdomen and pelvis with IV contrast that reported obstruction of the distal abdominal aorta and iliac vessels. Femoral arteries are reconstituted from collateral flow. Small bowel ileus and/or gastroenteritis. Vascular surgery was consulted for abdominal aorta occlusion. Patient denies any abdominal pain, denies any known history of abdominal aortic calcification or occlusion. He does state that he gets lower extremity pain but he has had multiple surgeries including bilateral knee surgery, left hip surgery x 2 with caitlin and back surgery. But he does state when asked that he will get cramping in his lower extremities with ambulating and can be improved with rest. General Surgery was consulted for blood in stool and history of peptic ulcer disease and is scheduled to undergo upper endoscopy today. Patient's hematuria has resolved. Hemoglobin has been stable at 12.9 which appears to be his baseline. Review of Systems A 14 point review systems was completed all pertinent positives and negatives as stated in the HPI. Past Medical History Past Medical History: Coronary Artery Disease (CAD), Cancer, CVA/TIA, Hyperl ipidemia, Myocardial Infarction ([place]), Pneumonia Additional Past Medical History / Comment(s): pneumonia, closed head injury, neuropathy, prostate ca, R lung ca Last Myocardial Infarction Date:: unknown History of Any Multi-Drug Resistant Organisms: None Reported Past Surgical History: Back Surgery, Heart Catheterization With Stent, Joint Replacement, Orthopedic Surgery Additional Past Surgical History / Comment(s): esophogeal surgery, left femur and left hip with rods, bilateral knee replacement Past Anesthesia/Blood Transfusion Reactions: No Reported Reaction Date of Last Stent Placement:: unknown Past Psychological History: Anxiety, Depression Smoking Status: Current every day smoker Past Alcohol Use History: None Reported Additional Past Alcohol Use History / Comment(s): Pt reports no ETOH x one year Past Drug Use History: Marijuana - Past Family History Mother History Unknown: Yes Medications and Allergies Home Medications Medication Instructions Recorded Confirmed Type HYDROcodone/APAP 10-325MG [[place] 1 tab PO Q6HR PRN 02/19/24 10/26/24 History 10-325] DULoxetine HCL [Cymbalta] 60 mg PO BID 30 Days #60 cap 03/11/24 10/26/24 Rx QUEtiapine FUMARATE [SEROquel] 300 mg PO HS 30 Days #30 tablet 03/11/24 10/26/24 Rx Acetaminophen [Tylenol 8 Hour] 650 mg PO Q6H PRN 10/26/24 10/26/24 History Ferrous Sulfate [Feosol] 325 mg PO BID 10/26/24 10/26/24 History Gabapentin 800 mg PO TID 10/26/24 10/26/24 History LORazepam [Ativan] 0.5 mg PO HS PRN 10/26/24 10/26/24 History Mirtazapine [Remeron] 15 mg PO HS 10/26/24 10/26/24 History Pantoprazole [Protonix] 40 mg PO DAILY 10/26/24 10/26/24 History Rosuvastatin Calcium [Crestor] 40 mg PO DAILY 10/26/24 10/26/24 History Tamsulosin [Flomax] 0.4 mg PO BID 10/26/24 10/26/24 History traZODone HCL [Desyrel] 100 mg PO HS 10/26/24 10/26/24 History Allergies Allergy/AdvReac Type Severity Reaction Status Date / Time No Known Allergies Allergy Verified 10/26/24 20:44 Surgical - Exam Vital Signs Temp Pulse Resp BP Pulse Ox 98 F 81 16 117/73 98 10/26/24 17:40 10/26/24 17:40 10/26/24 17:40 10/26/24 17:40 10/26/24 17:40 General appearance: The patient is alert, oriented, appears in no acute distress. HET: Head is normocephalic and atraumatic. Pupils are equal and reactive. Neck: Supple. Heart: Regular. Lungs: Equal expansion, normal respiratory effort. Abdomen: Soft, nontender, nondistended. Extremities: Normal skin color and turgor. Faint palpable femoral pulses. Nonpalpable DP or PT pulse, monophasic DP and PT signals. Neurological: No focal deficits. Strength and sensation are grossly intact. Results - Labs 10/27/24 14:03 10/27/24 14:03 Abnormal Lab Results - Last 24 Hours (Table) 10/27/24 10/27/24 Range/Units 14:03 14:03 RBC 4.07 L (4.40-5.60) 10*6/uL Hgb 12.6 L (13.0-17.0) g/dL MCV 98.0 H (80.0-97.0) fL MCHC 31.6 L (32.0-37.0) g/dL RDW 15.1 H (11.5-14.5) % Chloride 108 H (98-107) mmol/L BUN 8 L (9-20) mg/dL Creatinine 0.55 L (0.66-1.25) mg/dL Glucose 100 H (74-99) mg/dL Alkaline Phosphatase 142 H (38-126) U/L Total Protein 5.3 L (6.3-8.2) g/dL Albumin 3.2 L (3.5-5.0) g/dL Diabetes panel 10/27/24 Range/Units 14:03 Sodium 137 (137-145) mmol/L Potassium 4.5 (3.5-5.1) mmol/L Chloride 108 H (98-107) mmol/L Carbon Dioxide 24 (22-30) mmol/L BUN 8 L (9-20) mg/dL Creatinine 0.55 L (0.66-1.25) mg/dL Glucose 100 H (74-99) mg/dL Calcium 8.9 (8.4-10.2) mg/dL AST 46 (17-59) U/L ALT 40 (4-49) U/L Alkaline Phosphatase 142 H (38-126) U/L Total Protein 5.3 L (6.3-8.2) g/dL Albumin 3.2 L (3.5-5.0) g/dL Calcium panel 10/27/24 Range/Units 14:03 Calcium 8.9 (8.4-10.2) mg/dL Albumin 3.2 L (3.5-5.0) g/dL Pituitary panel 10/27/24 Range/Units 14:03 Sodium 137 (137-145) mmol/L Potassium 4.5 (3.5-5.1) mmol/L Chloride 108 H (98-107) mmol/L Carbon Dioxide 24 (22-30) mmol/L BUN 8 L (9-20) mg/dL Creatinine 0.55 L (0.66-1.25) mg/dL Glucose 100 H (74-99) mg/dL Calcium 8.9 (8.4-10.2) mg/dL Adrenal panel 10/27/24 Range/Units 14:03 Sodium 137 (137-145) mmol/L Potassium 4.5 (3.5-5.1) mmol/L Chloride 108 H (98-107) mmol/L Carbon Dioxide 24 (22-30) mmol/L BUN 8 L (9-20) mg/dL Creatinine 0.55 L (0.66-1.25) mg/dL Glucose 100 H (74-99) mg/dL Calcium 8.9 (8.4-10.2) mg/dL Total Bilirubin 0.3 (0.2-1.3) mg/dL AST 46 (17-59) U/L ALT 40 (4-49) U/L Alkaline Phosphatase 142 H (38-126) U/L Total Protein 5.3 L (6.3-8.2) g/dL Albumin 3.2 L (3.5-5.0) g/dL - Imaging Comments: CT of the abdomen and pelvis with IV contrast that reported obstruction of the distal abdominal aorta and iliac vessels. Femoral arteries are reconstituted from collateral flow. Small bowel ileus and/or gastroenteritis. Assessment and Plan Assessment: 1. Distal abdominal aortic occlusion, appears chronic 2. Reported melena 3. Hematuria now resolved 4. Coronary artery disease with history of [place] and previous cardiac stenting 5. Hyperlipidemia 6. Daily tobacco use 7. History of left knee replacement, left femur surgery with caitlin and left hip replacement Plan: Patient scheduled for upper endoscopy for melena. Hematuria resolved patient was seen by urology recommend outpatient follow-up likely secondary to radiation cystitis. From a vascular standpoint abdominal aortic occlusion appears to be chronic, possible claudication secondary to the above. Recommend outpatient follow-up and will obtain further workup at that time. Thank you for this consultation, vascular surgery will sign off at this time. The impression and plan of care has been dictated as directed. Dr. Cassidy Wong performed a history and examination of this patient, discussed the same with the dictator. I agree with the dictator's note ,documented as a scribe. Any additional findings or plans will be noted.
[2024-10-28 13:40] VITALS: BP 162/97; PULSE 61; TEMP 98
--- NOTE | 2024-10-28 18:42 | P.DS ---
Providers Date of admission: 10/26/24 20:05 Expected date of discharge: 10/28/24 Attending physician: Malina Bass Consults: 10/26/24 20:05 Consult Physician Routine Consulting Provider: Ghulam Fofana Consult Reason/Comments: aortic occlusion Do you want consulting provider notified?: Already Contacted Consult Physician Routine Consulting Provider: Adilia Navarrete Consult Reason/Comments: ileus Do you want consulting provider notified?: Yes 10/27/24 09:03 Consult Physician Routine Consulting Provider: Kam Luis Consult Reason/Comments: hematuria Do you want consulting provider notified?: Yes Primary care physician: Malina Bass Hospital Course: HISTORY OF PRESENT ILLNESS: This is a 64-year-old male a fairly new patient to my practice with a previous medical history significant for prostate cancer, chronic tobacco use and dependence with chronic obstructive pulmonary disease, mixed hyperlipidemia, chronic alcohol use and dependence with alcohol abuse, peripheral neuropathy, bipolar disorder with moderate dangelo, mild cognitive disorder, patient presented to the emergency department at [facility] yesterday because of 2-day history of rectal bleeding associated with intractable nausea and vomiting, without any hematemesis, patient was seen and evaluated Emergency Department, underwent CT scan of the abdomen pelvis that showed evidence of ileus along with with what appears to be an obstruction of the distal abdominal aorta with reconstitution of the iliac and femoral arteries from collateral vessels., because of that the patient was admitted to hospital for evaluation by general surgery as well as by vascular surgery, he was started on IV fluid resuscitation a full normal saline 130 cc cc an hour, he was placed on Zofran 4 mg IV push every 6 hours, as well as Protonix 40 mg IV push every 24 hours, he will be seen in consultation by general surgery for possible EGD and if the EGD is negative we will go for colonoscopy after that. Vascular surgery consultation for possible distal aorta obstruction. 10/28: Patient was seen in consultation by vascular surgery who recommended that the patient has a chronic occlusion of the distal abdominal aorta, and he is to follow-up as an outpatient, he already has collateral, he does complain of claudication due to the above, he already seen in consultation by urology who recommended to follow-up with Dr. Hart as an outpatient, due to possible radiation induced hematuria, patient also was seen in consultation by general surgery who underwent EGD that showed evidence of healing ulcer without evidence of any acute abnormalities, he did appear to have a mild hiatal hernia at the same time, biopsies were taken from the first portion of the duodenum which showed some inflammatory changes, patient will be switched to oral Protonix 40 mg once every day, he would be discharged home today, follow-up with me as an outpatient next week. Discharge diagnoses: 1. Rectal bleed with ileus. Resolved status post EGD that showed evidence of healing ulcer with mild hiatal hernia. 2. Obstruction of the distal abdominal aorta with reconstitution of the iliac and femoral arteries from collaterals appears to be chronic. 3. History of coronary artery disease status post PCI of the RCA back in 2019. 4. Hyperlipidemia. 5. History of esophageal stricture status post thoracotomy and anastomosis back in 1999 patient 6. History of bipolar disorder with moderate dangelo. 7. History of chronic low back pain. 8. Tobacco dependence with chronic obstructive pulmonary disease. 9. History of anemia 10. Chronic alcohol use and dependence. Patient Condition at Discharge: Fair Plan - Discharge Summary Discharge Rx Participant: No New Discharge Prescriptions: Continue HYDROcodone/APAP 10-325MG [[place] 10-325] 1 tab PO Q6HR PRN PRN Reason: Pain DULoxetine HCL [Cymbalta] 60 mg PO BID 30 Days #60 cap traZODone HCL [Desyrel] 100 mg PO HS Tamsulosin [Flomax] 0.4 mg PO BID Gabapentin 800 mg PO TID Mirtazapine [Remeron] 15 mg PO HS Ferrous Sulfate [Iron (65 MG Elemental)] 325 mg PO BID Acetaminophen [Tylenol 8 Hour] 650 mg PO Q6H PRN PRN Reason: Pain Or Fever > 100.5 QUEtiapine FUMARATE [SEROquel] 300 mg PO HS 30 Days #30 tablet LORazepam [Ativan] 0.5 mg PO HS PRN PRN Reason: SLEEP/ANXIETY Rosuvastatin Calcium [Crestor] 40 mg PO DAILY Changed Pantoprazole [Protonix] 40 mg PO DAILY #30 tab Discharge Medication List HYDROcodone/APAP 10-325MG [[place] 10-325] 1 tab PO Q6HR PRN 02/19/24 [History] DULoxetine HCL [Cymbalta] 60 mg PO BID 30 Days #60 cap 03/11/24 [Rx] QUEtiapine FUMARATE [SEROquel] 300 mg PO HS 30 Days #30 tablet 10/31/24 [Rx] Acetaminophen [Tylenol 8 Hour] 650 mg PO Q6H PRN 10/26/24 [History] Ferrous Sulfate [Iron (65 MG Elemental)] 325 mg PO BID 10/26/24 [History] Gabapentin 800 mg PO TID 10/26/24 [History] LORazepam [Ativan] 0.5 mg PO HS PRN 10/26/24 [History] Mirtazapine [Remeron] 15 mg PO HS 10/26/24 [History] Rosuvastatin Calcium [Crestor] 40 mg PO DAILY 10/26/24 [History] Tamsulosin [Flomax] 0.4 mg PO BID 10/26/24 [History] traZODone HCL [Desyrel] 100 mg PO HS 10/26/24 [History] Pantoprazole [Protonix] 40 mg PO DAILY #30 tab 10/28/24 [Rx] Follow up Appointment(s)/Referral(s): Malina Bass MD [Primary Care Provider] - 11/04/24 9:45 am (with DATABASE SECURITY EXPERT, Dana Alvarez) Efra Hart MD [STAFF PHYSICIAN] - 11/10/24 3:20 pm Ghulam Fofana DO [STAFF PHYSICIAN] - 1 Week Patient Instructions/Handouts: Gastritis (DC), Diet for Stomach Ulcers and Gastritis (ED) Activity/Diet/Wound Care/Special Instructions: At time of discharge, schedule follow-up appointment with Dr. Hart for office cystoscopy.
== END 2024-10-28 14:36 | disposition home or self-care (01) ==
LOC: EC 17:20 → INTOOBSV 20:05 → 5NMEDONC 20:05
PROVIDERS: ADMIT Internal Medicine; ATTEND Internal Medicine
DX: K56.7 Ileus, unspecified (principal); K25.9 Gastric ulcer, unspecified as acute or chronic, without hemorrhage or perforation; K44.9 Diaphragmatic hernia without obstruction or gangrene; K29.51 Unspecified chronic gastritis with bleeding; K31.A0 Gastric intestinal metaplasia, unspecified; I74.09 Other arterial embolism and thrombosis of abdominal aorta; D64.9 Anemia, unspecified; I25.10 Atherosclerotic heart disease of native coronary artery without angina pectoris; F41.9 Anxiety disorder, unspecified; J44.9 Chronic obstructive pulmonary disease, unspecified; E78.2 Mixed hyperlipidemia; F30.12 Manic episode without psychotic symptoms, moderate; G62.9 Polyneuropathy, unspecified; M54.50 Low back pain, unspecified; G89.29 Other chronic pain; I25.2 Old myocardial infarction; F10.20 Alcohol dependence, uncomplicated; F17.200 Nicotine dependence, unspecified, uncomplicated; Z85.118 Personal history of other malignant neoplasm of bronchus and lung; Z85.46 Personal history of malignant neoplasm of prostate; Z86.73 Personal history of transient ischemic attack (TIA), and cerebral infarction without residual deficits; Z87.11 Personal history of peptic ulcer disease; Z92.3 Personal history of irradiation; Z95.5 Presence of coronary angioplasty implant and graft; Z96.652 Presence of left artificial knee joint; Z79.899 Other long term (current) drug therapy
CPT/HCPCS: 96361; 96375 ×3; 96374; 99285; 36415; 93005; 86900; 86901; 88305; 80053 ×2; 83605; 83690; 84484; 85025 ×2; 85610; 85730; 86850; 81003; 74177; 43239; G0378 ×3; S4990; J2270; J2405; J1171; J2704; Q9967; J2003; J2470; 99291

== ENCOUNTER → 2024-11-03 | Outpatient (CLI) | payer MEDICARE, OTHER | END | disposition home or self-care (01) | LOC: LABWHC1 14:20 | PROVIDERS: ATTEND Internal Medicine Critical Care Medicine | DX: C61 Malignant neoplasm of prostate (principal) | CPT/HCPCS: 36415; 84153 ==

== ENCOUNTER 2024-11-30 14:36 | Inpatient (IN) | payer MEDICARE, MEDICAID ==
--- NOTE | 2024-11-30 15:26 | ED ---
General Adult HPI - General Chief complaint: Psychiatric Symptoms Stated complaint: Psych eval Time Seen by Provider: 11/30/24 14:53 Source: patient, RN notes reviewed Mode of arrival: ambulatory Limitations: no limitations - History of Present Illness Initial comments: Patient is a 64-year-old male present to the emergency department with concerns with depression and suicidal thoughts. Patient has chronic depression and has felt more suicidal lately and has a plan. No homicidal thoughts. No recent hallucinations. No alcohol or street drug use. Patient does use marijuana. No new physical complaints. - Related Data Home Medications Medication Instructions Recorded Confirmed HYDROcodone/APAP 10-325MG [[place] 1 tab PO Q6HR PRN 02/19/24 11/30/24 10-325] Acetaminophen [Tylenol 8 Hour] 650 mg PO Q6H PRN 10/26/24 11/30/24 Gabapentin 800 mg PO TID 10/26/24 11/30/24 LORazepam [Ativan] 0.5 mg PO HS PRN 10/26/24 11/30/24 Mirtazapine [Remeron] 15 mg PO HS 10/26/24 11/30/24 Rosuvastatin Calcium [Crestor] 40 mg PO DAILY 10/26/24 11/30/24 Tamsulosin [Flomax] 0.4 mg PO BID 10/26/24 11/30/24 traZODone HCL [Desyrel] 100 mg PO HS 10/26/24 11/30/24 Docusate [Colace] 100 mg PO DAILY PRN 11/30/24 11/30/24 Previous Rx's Medication Instructions Recorded DULoxetine HCL [Cymbalta] 60 mg PO BID 30 Days #60 cap 03/11/24 QUEtiapine FUMARATE [SEROquel] 300 mg PO HS 30 Days #30 tablet 03/11/24 Pantoprazole [Protonix] 40 mg PO DAILY #30 tab 10/28/24 Allergies Allergy/AdvReac Type Severity Reaction Status Date / Time No Known Allergies Allergy Verified 11/30/24 16:52 Review of Systems ROS Statement: Those systems with pertinent positive or pertinent negative responses have been documented in the HPI. ROS Other: All systems not noted in ROS Statement are negative. Constitutional: Denies: fever Eyes: Denies: eye pain ENT: Denies: ear pain Respiratory: Denies: cough Cardiovascular: Denies: chest pain Psychiatric: Reports: depression, suicidal thoughts Past Medical History Past Medical History: Coronary Artery Disease (CAD), Cancer, CVA/TIA, Hyperlipidemia, Myocardial Infarction ([place]), Pneumonia Additional Past Medical History / Comment(s): pneumonia, closed head injury, neuropathy, prostate ca, R lung ca Last Myocardial Infarction Date:: unknown History of Any Multi-Drug Resistant Organisms: None Reported Past Surgical History: Back Surgery, Heart Catheterization With Stent, Joint Replacement, Orthopedic Surgery Additional Past Surgical History / Comment(s): esophogeal surgery, left femur and left hip with rods, bilateral knee replacement Past Anesthesia/Blood Transfusion Reactions: No Reported Reaction Date of Last Stent Placement:: unknown Past Psychological History: Anxiety, Depression Smoking Status: Current every day smoker Past Alcohol Use History: None Reported Past Drug Use History: Marijuana - Past Family History Mother History Unknown: Yes General Exam Limitations: no limitations General appearance: alert, in no apparent distress Head exam: Present: normocephalic Eye exam: Present: normal appearance Neck exam: Present: normal inspection Respiratory exam: Present: normal lung sounds bilaterally Cardiovascular Exam: Present: regular rate, normal rhythm GI/Abdominal exam: Present: soft. Absent: tenderness Extremities exam: Present: normal inspection Neurological exam: Present: alert Psychiatric exam: Present: depressed Skin exam: Present: normal color Course Vital Signs 11/30/24 14:49 Temperature 97.6 F Pulse Rate 92 Respiratory 18 Rate Blood Pressure 97/70 O2 Sat by Pulse 98 Oximetry Medical Decision Making - Medical Decision Making Was pt. sent in by a medical professional or institution (, PA, [employer], urgent care, hospital, or snf...) When possible be specific @ -No Did you speak to anyone other than the patient for history (EMS, parent, family, police, friend...)? What history was obtained from this source @ -No Did you review nursing and triage notes (agree or disagree)? Why? @ -I reviewed and agree with nursing and triage notes Were old charts reviewed (outside hosp., previous admission, EMS record, old EKG, old radiological studies, urgent care reports/EKG's, snf records)? Report findings @ -No old charts were reviewed Differential Diagnosis (chest pain, altered mental status, abdominal pain women, abdominal pain men, vaginal bleeding, weakness, fever, dyspnea, syncope, headache, dizziness, GI bleed, back pain, seizure, CVA, palpatations, mental health, musculoskeletal)? @ -Differential Mental Health Depression, anxiety, bipolar, psychosis, schizophrenia, borderline personality, situational depression, adjustment disorder, behavioral disorder, brain tumor, malingering, substance abuse, encephalopathy, medication reaction, dementia, hypothyroidism, degenerative neurologic disorder, lupus.... This is not meant to be all-inclusive list EKG interpreted by me (3pts min.). @ -As above X-rays interpreted by me (1pt min.). @ -None done CT interpreted by me (1pt min.). @ -None done U/S interpreted by me (1pt. min.). @ -None done What testing was considered but not performed or refused? (CT, X-rays, U/S, labs)? Why? @ -None What meds were considered but not given or refused? Why? @ -None Did you discuss the management of the patient with other professionals (professionals i.e. , PA, [employer], lab, RT, psych nurse, social media marketing manager, forest fire fighters dispatcher, teacher, chief fundraising officer, continuous pillowcase cutter)? Give summary @ -I did discuss the case with psychiatric nurse with plans for psychiatric admission Was smoking cessation discussed for >3mins.? @ -No Was critical care preformed (if so, how long)? @ -No Were there social determinants of health that impacted care today? How? (Homelessness, low income, unemployed, alcoholism, drug addiction, transportation, low edu. Level, literacy, decrease access to med. care, correction, rehab)? @ -No Was there de-escalation of care discussed even if they declined (Discuss DNR or withdrawal of care, Hospice)? DNR status @ -No What co-morbidities impacted this encounter? (DM, HTN, Smoking, COPD, CAD, Cancer, CVA, ARF, Chemo, Hep., AIDS, mental health diagnosis, sleep apnea, morbid obesity)? @ -History of depression Was patient admitted / discharged? Hospital course, mention meds given and route, prescriptions, significant lab abnormalities, going to OR and other pertinent info. @ -Patient presents with worsening depression and suicidal thoughts and plans. Patient will be admitted to mental health floor Undiagnosed new problem with uncertain prognosis? @ -No Drug Therapy requiring intensive monitoring for toxicity (Heparin, Nitro, Insulin, Cardizem)? @ -No Were any procedures done? @ -No Diagnosis/symptom? @ -Depression Acute, or Chronic, or Acute on Chronic? @ -Acute Uncomplicated (without systemic symptoms) or Complicated (systemic symptoms)? @ -Complicated with suicidal thoughts and plan Side effects of treatment? @ -No Exacerbation, Progression, or Severe Exacerbation? @ -No Poses a threat to life or bodily function? How? (Chest pain, [place], [place], pneumonia, PE, COPD, DKA, ARF, appy, cholecystitis, CVA, Diverticulitis, Homicidal, Suicidal, threat to staff... and all critical care pts) @ -No - Lab Data Lab Results 11/30/24 Range/Units 15:08 Urine Opiates Screen Detected H (NotDetected) Ur Oxycodone Screen Detected H (NotDetected) Urine Methadone Screen Not Detected (NotDetected) Ur Barbiturates Screen Not Detected (NotDetected) U Tricyclic Antidepress Detected H (NotDetected) Ur Phencyclidine Scrn Not Detected (NotDetected) Ur Amphetamines Screen Not Detected (NotDetected) U Methamphetamines Scrn Not Detected (NotDetected) U Benzodiazepines Scrn Detected H (NotDetected) Urine Cocaine Screen Not Detected (NotDetected) U Marijuana (THC) Screen Detected H (NotDetected) Disposition Clinical Impression: Depression Disposition: TRANSFER TO PSYCH HOSP/UNIT Is patient prescribed a controlled substance at d/c from ED?: No Referrals: Malina Bass MD [Primary Care Provider] - 1-2 days Time of Disposition: 17:36
[2024-11-30 16:09] LABS: Barbiturate Screen,Urine Not Detected (NotDetected); Benzodiazepines Screen,Urine Detected (NotDetected); Opiate Screen,Urine Detected (NotDetected); Oxycodone Screen, Urine Detected (NotDetected); Phencyclidine Screen,Urine Not Detected (NotDetected); Tricyclic Antidepressant,Urine Detected (NotDetected); Urn Cannabinoid Scrn Detected (NotDetected)
[2024-11-30] MEDS ORDERED: MAG HYDROX/AL HYDROX/SIMETH 355 ML BOTTLE PO PRN (19:34)
[2024-11-30] MEDS ORDERED: IBUPROFEN 600 MG TAB PO PRN (19:34)
[2024-11-30] MEDS ORDERED: MAGNESIUM HYDROXIDE 2,400 MG/30 ML CUP PO PRN (19:34)
[2024-11-30] MEDS ORDERED: ACETAMINOPHEN TAB 325 MG TAB PO PRN (19:34)
[2024-11-30] MEDS ORDERED: LORazepam 0.5 MG TAB PO PRN (19:36)
[2024-11-30] MEDS ORDERED: DOCUSATE 100 MG CAP PO PRN (19:36)
[2024-11-30] MEDS: HYDROcodone/APAP 10-325MG 1 EACH TAB PO PRN (20:39)
[2024-11-30] MEDS: GABAPENTIN 400 MG CAP PO SCH (21:39)
[2024-11-30] MEDS: TAMSULOSIN 0.4 MG CAP.ER.24H PO SCH (21:40)
[2024-11-30] MEDS: QUEtiapine 100 MG TAB PO SCH (21:40)
[2024-11-30] MEDS: DULoxetine HCL 60 MG CAPSULE.DR PO SCH (21:40)
[2024-11-30] MEDS: MIRTAZAPINE 15 MG TAB PO SCH (21:40)
[2024-12-01] MEDS: PANTOPRAZOLE 40 MG TABLET PO SCH (08:28)
[2024-12-01] MEDS: ATORVASTATIN 80 MG TAB PO SCH (08:28)
[2024-12-01] MEDS: NICOTINE 14MG/24HR PATCH TRANSDERM SCH (08:31)
[2024-12-01 08:45] LABS: Basophils # (A) 0.03 10*3/uL (0.00-0.10); Basophils % (A) 0.6 %; Eosinophils # (A) 0.06 10*3/uL (0.04-0.35); Eosinophils % (A) 1.2 %; HCT 48.6 % (39.6-50.0); Lymphocytes # (A) 1.77 10*3/uL (0.90-5.00); Lymphocytes % (A) 36.7 %; MCH 31.8 pg (27.0-32.0); MCHC 32.9 g/dL (32.0-37.0); MCV 96.6 fL (80.0-97.0); Monocytes # (A) 0.33 10*3/uL (0.20-1.00); Monocytes % (A) 6.8 %; Neutrophils # (A) 2.62 10*3/uL (1.80-7.70); Neutrophils % (A) 54.5 %; Platelet Count 181 10*3/uL (140-440); RBC 5.03 10*6/uL (4.40-5.60); RDW 14.9 % (11.5-14.5); WBC 4.82 10*3/uL (4.50-10.00)
[2024-12-01 08:53] LABS: HGB 16.0 g/dL (13.0-17.0)
[2024-12-01 09:08] LABS: ALT 26 U/L (4-49); AST 36 U/L (17-59); African American GFR (CKD) >90 (>60 ml/min/1.73 sqM); Albumin 3.9 g/dL (3.5-5.0); Alkaline Phosphatase 202 U/L (38-126); Anion Gap 6 mmol/L; Blood Urea Nitrogen 9 mg/dL (9-20); Calcium 9.8 mg/dL (8.4-10.2); Carbon Dioxide 27 mmol/L (22-30); Chloride 109 mmol/L (98-107); Glucose 93 mg/dL (74-99); Non-African American GFR(CKD) >90 (>60 ml/min/1.73 sqM); Potassium 4.4 mmol/L (3.5-5.1); Sodium 142 mmol/L (137-145); Total Protein 6.3 g/dL (6.3-8.2)
--- NOTE | 2024-12-01 11:07 | P.MDCNMH ---
History of Present Illness H&P Date: 12/01/24 Chief Complaint: Bipolar depression/suicide HISTORY OF PRESENT ILLNESS: This is a 64-year-old male a fairly new patient to my practice with a previous medical history significant for prostate cancer, chronic tobacco use and dependence with chronic obstructive pulmonary disease, mixed hyperlipidemia, chronic alcohol use and dependence with alcohol abuse, peripheral neuropathy, bipolar disorder with moderate dangelo, mild cognitive disorder, patient presented to the emergency department at [facility] yesterday because of severe depression and suicidal thoughts and ideation, he was admitted to mental health unit for evaluation and treatment by the mental health unit team, and I was asked to see the patient for medical management REVIEW OF SYSTEMS: Constitutional: No documented fever, no chills, no night sweats. positive for weight change. No weakness, fatigue or lethargy. No daytime sleepiness. EENT: No headache. No blurred vision or double vision, no loss of vision. No loss of Hearing, no ringing in the ears, no dizziness. No nasal drainage or congestion. No epistaxis. No sore throat. Lungs: No shortness of breath, occasional cough, no sputum production. No wheezing. Reports dyspnea with activity. Cardiovascular: No chest pain, no lower extremity edema. No palpitations. No paroxysmal nocturnal dyspnea. No orthopnea. No lightheadedness or dizziness. No syncopal episodes. Abdominal: Reports no abdominal pain. no nausea, vomiting. No diarrhea. No constipation. rteports bloody no tarry stools reports loss of appetite. Genitourinary: No dysuria, increased frequency, urgency. No urinary retention. Musculoskeletal: No myalgias. No muscle weakness, mild gait dysfunction, no frequent falls. positive for back pain. No neck pain. Integumentary: No wounds, no lesions. No rash or pruritus. No unusual bruising. No change in hair or nails. Neurologic: No aphasia. No facial droop. No change in mentation. No head injury. No headache. No paralysis. No paresthesia. Psychiatric: positive for depression. positive for anxiety. positive for mood swings. Endocrine: No abnormal blood sugars. positive for weight change. PAST MEDICAL HISTORY: Coronary artery disease status post PCI of the RCA 12/25/2018 Prostate cancer Mixed hyperlipidemia Chronic alcohol use and dependence Chronic tobacco use and dependence with COPD Bipolar disorder with moderate dangelo Mild cognitive disorder. PAST SURGICAL HISTORY: Right total knee replacement 2021 Left total knee replacement 2022 Left hip replacement with caitlin placement 2017 Lumbar fusion 1999 Left heart catheterization with PCI x 6 of the RCA 12/25/2018 Loop recorder 08/06/2021 Palate fracture surgery from fall 2010 Thoracotomy for esophageal stricture anastomosis 1999. SOCIAL HISTORY: Patient smokes about a half a pack a day since the age of 14, he continues to smoke, he drinks on a daily basis, he denies any drug use or abuse. FAMILY HISTORY: Father of unknown cause, mother at the age of 82 from heart failure and CAD, patient had 1 brother older brother who who at the age of 81 from heart failure patient has 1 sister 78-year-old alive and healthy patient has 1 son 4-year-old alive and healthy and 38 with lumbar pain drug abuse and overdose with a brain injury patient has 1 daughter 38-year-old who is alive and healthy. PHYSICAL EXAMINATION: General: 64-year-old male laying down in bed in no apparent distress. HEENT: Head is atraumatic, normocephalic, pupils were equal round reactive to light and recommendation, extraocular muscle movement were intact, sclera nonicteric, conjunctivae were pale, mucous membranes of the mouth are somewhat dry. Neck: Supple, no JVP, normal carotid upstroke bilaterally, no lymphadenopathy. Chest: Decreased breath sounds at the bases, few rhonchi, no expiratory wheezes, no chest wall tenderness, no intercostal retractions. Heart: First heart sound is normal, second heart sounds normal there is systolic ejection murmur 2/6 located at the left sternal border. Abdomen: Soft, mild tenderness to the left lower quadrant no rebound or guarding positive bowel sounds, no hepatosplenomegaly. Extremities: There is no edema no calf tenderness DP +2 bilaterally. Neurologic examination: Patient is awake alert and oriented X3, cranial nerves II-12 appear grossly intact, muscle power were 5 out of 5 in upper extremities and 5 out of 5 in bilateral lower extremities, deep tendon reflexes normal bilaterally. ASSESSMENT AND PLAN: 1. Bipolar disorder with severe depression and suicidal thoughts and ideation with racing thoughts Patient was admitted to the mental health unit, continue current management per mental health unit team, will follow the patient very closely 2. History of coronary artery disease status post PCI of the RCA back in 2018. Continue patient on rosuvastatin 20 mg once every day, monitor the patient (, keep LDL 55-70. 3. Hyperlipidemia. Continue Atorvastatin 80 mg orally once every day, monitor lipid panel. 4. History of esophageal stricture status post thoracotomy and anastomosis back in 1999 patient is scheduled to go for EGD tomorrow morning, continue Protonix 40 mg orally daily 5. History of bipolar disorder with moderate dangelo. Continue current duloxetine 60 mg orally twice every day, continue with Seroquel 300 mg orally once every day as well as mirtazapine 15 mg orally once every day. 6. History of chronic low back pain. Continue patient on gabapentin 800 mg orally 3 times every day continue current pain management as well. 7. Tobacco dependence with chronic obstructive pulmonary disease. Smoking cessation and counseling and increased risk of CAD, CVA and malignancy. Will start the patient on nicotine patch 14 mg daily. 8. History of anemia continue iron supplement 325 mg orally twice every day. 9. Chronic alcohol use and dependence. Abstinence from alcohol no evidence of any delirium at this point in time. Continue lorazepam 0.5 mg orally once at bedtime as needed. 10. DVT prophylaxis. Increase activity levels. 11. GI prophylaxis. Continue patient on Protonix 40 mg orally once every day. 12. History of prostate cancer . we will continue with Flomax 0.4 mg orally twice a day. 13. Thank you for the consultation we will follow the patient with you Past Medical History Past Medical History: Coronary Artery Disease (CAD), Cancer, CVA/TIA, Hyperlipidemia, Myocardial Infarction ([place]), Pneumonia Additional Past Medical History / Comment(s): pneumonia, closed head injury, neuropathy, prostate ca, R lung ca Last Myocardial Infarction Date:: unknown History of Any Multi-Drug Resistant Organisms: None Reported Past Surgical History: Back Surgery, Heart Catheterization With Stent, Joint Replacement, Orthopedic Surgery Additional Past Surgical History / Comment(s): esophogeal surgery, left femur and left hip with rods, bilateral knee replacement Past Anesthesia/Blood Transfusion Reactions: No Reported Reaction Date of Last Stent Placement:: unknown Past Psychological History: Anxiety, Depression Smoking Status: Current every day smoker, Vaper Past Alcohol Use History: None Reported Past Drug Use History: Marijuana - Past Family History Mother History Unknown: Yes Medications and Allergies Home Medications Medication Instructions Recorded Confirmed Type HYDROcodone/APAP 10-325MG [[place] 1 tab PO Q6HR PRN 02/19/24 11/30/24 History 10-325] DULoxetine HCL [Cymbalta] 60 mg PO BID 30 Days #60 cap 03/11/24 11/30/24 Rx QUEtiapine FUMARATE [SEROquel] 300 mg PO HS 30 Days #30 tablet 03/11/24 11/30/24 Rx Acetaminophen [Tylenol 8 Hour] 650 mg PO Q6H PRN 10/26/24 11/30/24 History Gabapentin 800 mg PO TID 10/26/24 11/30/24 History LORazepam [Ativan] 0.5 mg PO HS PRN 10/26/24 11/30/24 History Mirtazapine [Remeron] 15 mg PO HS 10/26/24 11/30/24 History Rosuvastatin Calcium [Crestor] 40 mg PO DAILY 10/26/24 11/30/24 History Tamsulosin [Flomax] 0.4 mg PO BID 10/26/24 11/30/24 History traZODone HCL [Desyrel] 100 mg PO HS 10/26/24 11/30/24 History Pantoprazole [Protonix] 40 mg PO DAILY #30 tab 10/28/24 11/30/24 Rx Docusate [Colace] 100 mg PO DAILY PRN 11/30/24 11/30/24 History Allergies Allergy/AdvReac Type Severity Reaction Status Date / Time No Known Allergies Allergy Verified 11/30/24 16:52 Physical Exam Vitals: Vital Signs Temp Pulse Pulse Resp BP BP Pulse Ox 12/01/24 08:34 99 18 75/53 100 11/30/24 20:39 97.1 F L 70 16 102/62 96 11/30/24 20:12 97.8 F 71 16 107/68 96 11/30/24 14:49 97.6 F 92 18 97/70 98 Intake and Output 11/30/24 12/01/24 12/01/24 22:59 06:59 14:59 Other: Weight 61.745 kg Cranial Nerve Examination - Cranial Nerves Cranial Nerve I- Olfactory: Intact Cranial Nerve II- Optic: Intact Cranial Nerve III- Oculomotor: Intact Cranial Nerve IV- Trochlear: Intact Cranial Nerve V- Trigeminal: Intact Cranial Nerve - Abducens: Intact Cranial Nerve VII- Facial: Intact Cranial Nerve VIII- Auditory: Intact Cranial Nerve IX- Glossopharyngeal: Intact Cranial Nerve X- Vagus: Intact Cranial Nerve XI- Accessory: Intact Cranial Nerve XII- Hypoglossal: Intact Results CBC & Chem 7: 12/01/24 08:11 12/01/24 08:11 Labs: Abnormal Lab Results - Last 24 Hours (Table) 11/30/24 12/01/24 Range/Units 15:08 08:11 Chloride 109 H (98-107) mmol/L Creatinine 0.64 L (0.66-1.25) mg/dL Alkaline Phosphatase 202 H (38-126) U/L Urine Opiates Screen Detected H (NotDetected) Ur Oxycodone Screen Detected H (NotDetected) U Tricyclic Antidepress Detected H (NotDetected) U Benzodiazepines Scrn Detected H (NotDetected) U Marijuana (THC) Screen Detected H (NotDetected)
--- NOTE | 2024-12-01 13:02 | P.HP ---
Psychiatric H&P - . H&P Date: 12/01/24 History & Physical: Allergies Allergy/AdvReac Type Severity Reaction Status Date / Time No Known Allergies Allergy Verified 11/30/24 16:52 Vital Signs Temp 97.1 F L 11/30/24 20:39 Pulse 99 12/01/24 08:34 Resp 18 12/01/24 08:34 BP 105/65 12/01/24 10:53 Pulse Ox 100 12/01/24 08:34 FiO2 Intake & Output 11/30/24 12/01/24 12/01/24 18:59 06:59 18:59 Weight 66.678 kg 61.745 kg Laboratory Last Values WBC 4.82 10*3/uL (4.50-10.00) 12/01/24 08:11 RBC 5.03 10*6/uL (4.40-5.60) 12/01/24 08:11 Hgb 16.0 g/dL (13.0-17.0) D 12/01/24 08:11 Hct 48.6 % (39.6-50.0) 12/01/24 08:11 MCV 96.6 fL (80.0-97.0) 12/01/24 08:11 MCH 31.8 pg (27.0-32.0) 12/01/24 08:11 MCHC 32.9 g/dL (32.0-37.0) 12/01/24 08:11 Plt Count 181 10*3/uL (140-440) 12/01/24 08:11 MPV 10.0 fL (9.5-12.2) 12/01/24 08:11 Immature Gran % (Auto) 0.2 % 12/01/24 08:11 Neutrophils % 54.5 % 12/01/24 08:11 Lymphocytes % 36.7 % 12/01/24 08:11 Monocytes % 6.8 % 12/01/24 08:11 Eosinophils % 1.2 % 12/01/24 08:11 Basophils % 0.6 % 12/01/24 08:11 Immature Gran # 0.01 10*3/uL (0.00-0.04) 12/01/24 08:11 Neutrophils # 2.62 10*3/uL (1.80-7.70) 12/01/24 08:11 Lymphocytes # 1.77 10*3/uL (0.90-5.00) 12/01/24 08:11 Monocytes # 0.33 10*3/uL (0.20-1.00) 12/01/24 08:11 Eosinophils # 0.06 10*3/uL (0.04-0.35) 12/01/24 08:11 Basophils # 0.03 10*3/uL (0.00-0.10) 12/01/24 08:11 Sodium 142 mmol/L (137-145) 12/01/24 08:11 Potassium 4.4 mmol/L (3.5-5.1) 12/01/24 08:11 Chloride 109 mmol/L (98-107) H 12/01/24 08:11 Carbon Dioxide 27 mmol/L (22-30) 12/01/24 08:11 Anion Gap 6 mmol/L 12/01/24 08:11 BUN 9 mg/dL (9-20) 12/01/24 08:11 Creatinine 0.64 mg/dL (0.66-1.25) L 12/01/24 08:11 Est GFR (CKD-EPI)AfAm >90 (>60 ml/min/1.73 sqM) 12/01/24 08:11 Est GFR (CKD-EPI)NonAf >90 (>60 ml/min/1.73 sqM) 12/01/24 08:11 Glucose 93 mg/dL (74-99) 12/01/24 08:[address] Glu mg/dL 108 mg/dL 12/01/24 08:11 Hemoglobin A1c 5.4 % (<=6.0) 12/01/24 08:11 Calcium 9.8 mg/dL (8.4-10.2) 12/01/24 08:11 Total Bilirubin 0.4 mg/dL (0.2-1.3) 12/01/24 08:11 AST 36 U/L (17-59) 12/01/24 08:11 ALT 26 U/L (4-49) 12/01/24 08:11 Alkaline Phosphatase 202 U/L (38-126) H 12/01/24 08:11 Total Protein 6.3 g/dL (6.3-8.2) 12/01/24 08:11 Albumin 3.9 g/dL (3.5-5.0) 12/01/24 08:11 TSH 1.000 mIU/L (0.465-4.680) 12/01/24 08:11 Urine Opiates Screen Detected (NotDetected) H 11/30/24 15:08 Ur Oxycodone Screen Detected (NotDetected) H 11/30/24 15:08 Urine Methadone Screen Not Detected (NotDetected) 11/30/24 15:08 Ur Barbiturates Screen Not Detected (NotDetected) 11/30/24 15:08 U Tricyclic Antidepress Detected (NotDetected) H 11/30/24 15:08 Ur Phencyclidine Scrn Not Detected (NotDetected) 11/30/24 15:08 Ur Amphetamines Screen Not Detected (NotDetected) 11/30/24 15:08 U Methamphetamines Scrn Not Detected (NotDetected) 11/30/24 15:08 U Benzodiazepines Scrn Detected (NotDetected) H 11/30/24 15:08 Urine Cocaine Screen Not Detected (NotDetected) 11/30/24 15:08 U Marijuana (THC) Screen Detected (NotDetected) H 11/30/24 15:08 SARS-CoV-2 (PCR) Not Detected (Not Detectd) 11/30/24 18:18 12/01/24 12:54 IDENTIFYING DATA: Patient is a 64-year-old male, on SSD, living independently CHIEF COMPLAINT: SI with a plan HPI: Patient presented to the hospital with depression, suicidal thoughts. EPS no states, "Patient brought self to ER related to suicidal ideation with a plan to hang himself or jump over an overpass. patient assessed in ER11 from 1632- 1645. Patient states "I can't handle it anymore". Patient discusses having increased depression, and suicidal ideation with increase in frequency and intensity. Patient verbalizes that he has been compliant with his outpatient medications but feels like they have not been effective. Patient verbalizes being easily triggered and having severe anxiety recently. Patient verbalizes being open with [facility] and sees a employment case manager weekly with marv or mu. Patient states that he lost his brother about 1 month ago and was unable to attend his and has been worsening since. Patient verbalizes history of one aborted suicide attempt, verbalizes sitting on railroad tracks and called a friend whom came and got him, and was admitted for mental health at that time. Patient denies homicidal ideations. Patient denies current auditory or visual hallucinations. Patient verbalizes poor appetite and poor sleep." Patient seen and evaluated on the unit and was agreeable with speaking to sql report writer in office. He states he has been on the current cocktail of medications for many years how ever he feels as though he needs some medication adjustments. He denied being suicidal, stating that he will not harm himself however given his worsening depression he felt it was best to come here for help. Stressors include the loss of his brother and close friend roughly 1 month ago, states that he was unable to go to his brother's as he could not afford a flight to [place]. He talked about relationship issues with his sister. Patient also reports a history of prostate cancer however he did receive radiation therapy a few months ago. He states he might have lung cancer he is following up with a specialist for this. Patient denied any sleep or appetite changes, low energy or concentration difficulties. He does admit to anhedonia, hopelessness. Patient denies any suicidal or homicidal ideations intent or plan. At this time patient denies any auditory or visual hallucinations. Patient denies any flight of ideas racing thoughts and increased in goal directed behavior. Patient admits to using THC a few times a week, last using alcohol 2.5 years ago and smoking cigarettes daily. He does mention a history of dangelo. Patient is future oriented, states he misses his cat and that his friend is looking after it while he is here. PAST PSYCHIATRIC HISTORY: Patient has a history of adjustment disorder, major depressive disorder, KELLY. Patient is currently prescribed Remeron 15 mg at bedtime, Seroquel 300 mg at bedtime, Cymbalta 60 mg twice daily, Ativan 0.5 mg as needed at bedtime, trazodone 100 mg at bedtime. Patient reports at least 5 inpatient hospitalizations last being in February 2024. Patient does follow with [facility] regularly. Patient denies any history of suicide attempts in the past. PMH: as per ER note ALLERGIES: as per EMR SUBSTANCE USE HISTORY: As per HPI FAMILY PSYCHIATRIC/SUBSTANCE USE HISTORY: Patient states his sister has bipolar disorder SOCIAL HISTORY: Patient is and has 2 kids however he lives alone. He completed schooling up to the ninth grade and is currently on SSD. MENTAL STATUS EXAM: General Appearance: Patient appears to be stated age is alert, directable, and attempts to cooperate. Patient appears to have fair hygiene and grooming. Behavior: Patient is seated without any agitated behavior. Speech: Patient's speech is fluent and nonpressured. Mood/Affect: Patient reports their mood is depressed, affect is congruent and blunted. Suicidality/Homicidality: Patient denies having any homicidal ideation intent or plan. Denies any suicidal ideations intent or plan Perceptions: Patient denies any visual hallucinations and denies any auditory hallucinations Though content/process: There is no evidence of any delusional thought content and thought process is linear and goal-directed. Memory and concentration: AOX3, grossly intact for the purposes of this session. Can spell "WORLD" backwards Judgment and insight: Fair STRENGTHS/WEAKNESSES: strength is that patient is resilient, reports both friend and cat support. Weakness is that patient has poor judgment and is impulsive INTELLECT: Average IMPRESSIONS: Adjustment disorder with mixed depressed and anxious mood Cannabis use disorder Nicotine dependence Alcohol use disorder, in sustained remission History of TBI PLAN: -Patient is admitted under voluntary status to [facility] for stabilization of psychiatric symptoms and safety. Patient has signed adult voluntary form and and is placed in patient's chart. -Medications : Increase Remeron to 22.5 mg at bedtime for depression/anxiety, continue Seroquel 300 mg at bedtime for insomnia/mood, Cymbalta 60 mg twice daily for depression/anxiety, Ativan 0.5 mg as needed at bedtime, trazodone 100 mg at bedtime for insomnia -Patient was counselled on substance abuse and desired to cut back on use -Patient was informed of the risks, benefits and side effects of the medication and patient verbally consented to taking the medications. Patient signed med consent form and was placed in chart. Patient offered and declined patient education sheet for psychotropic medications. -Internal Medicine consult to perform medical evaluation and physical. -NRT -nicotine patch - on board for discharge planning. Encourage patient to participate in groups to work on coping skills. Anticipate discharge home on Friday. Patient is agreeable with starting grief counseling at [facility]
[2024-12-01 16:01] LABS: Cholesterol 135.00 mg/dL (0.00-200.00); HDL Cholesterol 64.60 mg/dL (40.00-60.00); LDL Cholesterol,Calculated 52.8 mg/dL (0.0-131.0); Triglycerides 88.10 mg/dL (0.00-149.00); VLDL Calculation 17.62 mg/dL (5.00-40.00)
[2024-12-01 19:58] LABS: Bilirubin,Urine Negative (Negative); Blood,Urine Negative (Negative); Calcium Oxalate Crystals,Urine Rare /hpf; Color,Urine Light Red; Glucose,Urine (UA) Negative (Negative); Ketones,Urine Negative (Negative); Leukocyte Esterase,Urine Negative (Negative); Mucus,Urine Few /hpf; Nitrite,Urine Negative (Negative); PH, Urine 5.5 (5.0-8.0); Protein,Urine Trace (Negative); RBC,Urine 6 /hpf (0-5); Specific Gravity,Urine 1.038 (1.001-1.035); Urobilinogen,Urine 3.0 mg/dL (<2.0); WBC,Urine 6 /hpf (0-5)
[2024-12-01] MEDS: MIRTAZAPINE 15 MG TAB PO SCH (22:44)
--- NOTE | 2024-12-02 11:48 | P.PN ---
Progress Note - Text Progress Note Date: 12/02/24 Interval History: Patient was seen in the lounge and was directable and agreeable to speak with screenplay writer in the office. He appeared bright in affect, profusely thanked screenplay writer for the medication adjustments, states this is the best he has felt in a while, stating that he feels "blessed and happy". He does report a slight increase in appetite today, sleeping better. He talked about his cat at midnight whom he has had since he was a kitten, future oriented. At this time patient denies any suicidal or homicidal ideations, intent or plan. Patient denies any auditory, visual hallucinations and denies any paranoia or delusions. Patient denies any side effects from the medications and has been compliant with meds. Mental Status Exam: General Appearance: Patient appears to be stated age is alert, directable, and cooperative. Behavior: Patient is calmly seated without any agitated behavior. Speech: Patient's speech is fluent and nonpressured. Mood/Affect: Mood is "happy", affect is congruent and reactive. Suicidality/Homicidality: Patient denies having any suicidal or homicidal idea tion intent or plan. Perceptions: Patient denies any visual hallucinations and denies any auditory hallucinations Though content/process: There is no evidence of any delusional thought content and thought process is linear and goal-directed. Memory and concentration: AOX3, grossly intact for the purposes of this session Judgment and insight: Improving mildly Assessment Adjustment disorder with mixed depressed and anxious mood Cannabis use disorder Nicotine dependence Alcohol use disorder, in sustained remission History of TBI Plan: -Patient continues to meet criteria for inpatient psychiatric admission for symptom stabilization and safety. Patient has signed adult voluntary form and medication consent and was placed in patient's chart. -Medications: Continue Remeron 22.5 mg at bedtime for depression/anxiety, Seroquel 300 mg at bedtime for insomnia/mood, Cymbalta 60 mg twice daily for depression/anxiety, Ativan 0.5 mg as needed at bedtime for insomnia, trazodone 100 mg at bedtime for insomnia -Labs: Reviewed, CBC, A1c, lipid panel and TSH all grossly WNL -NRT - nicotine patch -SW on board for discharge planning. Encouraged the patient to participate in milieu. Anticipate discharge home tomorrow
[2024-12-02 22:03] VITALS: RESP 16
[2024-12-03 09:22] VITALS: BP 109/78; PULSE 110; TEMP 97.2
--- NOTE | 2024-12-03 10:27 | P.DS ---
Providers Date of admission: 11/30/24 19:26 Expected date of discharge: 12/03/24 Attending physician: Mariola Max MD Consults: 11/30/24 19:34 Consult Physician Routine Consulting Provider: Malina Bass Consult Reason/Comments: History and Physical, New Admission Do you want consulting provider notified?: Yes Primary care physician: Malina Shelia - Discharge Diagnosis(es) (1) Adjustment disorder with mixed anxiety and depressed mood Current Visit: Yes Status: Acute Priority: High (2) Cannabis use disorder Current Visit: Yes Status: Acute Priority: Low (3) Nicotine dependence Current Visit: Yes Status: Chronic Priority: Low (4) Alcohol use disorder in remission Current Visit: No Status: Suspected Priority: Low Hospital Course: Admission HPI: Admission note was completed by tag writer "Patient presented to the hospital with depression, suicidal thoughts. EPS no states, "Patient brought self to ER related to suicidal ideation with a plan to hang himself or jump over an overpa ss. patient assessed in ER11 from 1305-5905. Patient states "I can't handle it anymore". Patient discusses having increased depression, and suicidal ideation with increase in frequency and intensity. Patient verbalizes that he has been compliant with his outpatient medications but feels like they have not been effective. Patient verbalizes being easily triggered and having severe anxiety recently. Patient verbalizes being open with [facility] and sees a case resolution specialist weekly with paul dobbins. Patient states that he lost his brother about 1 month ago and was unable to attend his and has been worsening since. Patient verbalizes history of one aborted suicide attempt, verbalizes sitting on railroad tracks and called a friend whom came and got him, and was admitted for mental health at that time. Patient denies homicidal ideations. Patient denies current auditory or visual hallucinations. Patient verbalizes poor appetite and poor sleep." Patient seen and evaluated on the unit and was agreeable with speaking to tag writer in office. He states he has been on the current cocktail of medications for many years however he feels as though he needs some medication adjustments. He denied being suicidal, stating that he will not harm himself however given his worsening depression he felt it was best to come here for help. Stressors include the loss of his brother and close friend roughly 1 month ago, states that he was unable to go to his brother's as he could not afford a flight to [place]. He talked about relationship issues with his sister. Patient also reports a history of prostate cancer however he did receive radiation therapy a few months ago. He states he might have lung cancer he is following up with a specialist for this. Patient denied any sleep or appetite changes, low energy or concentration difficulties. He does admit to anhedonia, hopelessness. Patient denies any suicidal or homicidal ideations intent or plan. At this time patient denies any auditory or visual hallucinations. Patient denies any flight of ideas racing thoughts and increased in goal directed behavior. Patient admits to using THC a few times a week, last using alcohol 2.5 years ago and smoking cigarettes daily. He does mention a history of dangelo. Patient is future oriented, states he misses his cat and that his friend is looking after it while he is here." Hospital course: Upon admission to the unit patient was directable and agreeable to commence treatment and signed adult voluntary form. Patient got along well with other patients on the unit and followed unit protocol. Patient was compliant with the medications and denied any side effects throughout hospital course. Patient was continued on Seroquel 300 mg at bedtime for insomnia/mood, Cymbalta 60 mg twice daily for depression/anxiety, trazodone 100 mg at bedtime for insomnia, mirtazapine increased to 22.5 mg at bedtime for depression/anxiety. Patient spoke of his stressors and engaged in therapy both group and individual. Patient was also seen by medical team for history and physical exam. Throughout the course of the hospitalization patient gradually improved with regards to mood, anxiety, sleep and became more future oriented with improved insight and judgment. On the day of discharge patient denied any suicidal or homicidal ideations intent or plan denied any auditory or visual hallucinations. The patient denied any access to guns or weapons. Patient denied any paranoia and did not endorse any delusions. Patient does not have a significant history of substance abuse and was counseled on abstaining from all substances including alcohol and marijuana. Patient was also counseled on the medications and need for regular compliance and was encouraged to follow-up with their outpatient appointment for mental health and also for primary care. Patient to be discharged home alone and will follow-up with [facility]. Mental status exam: General Appearance: Patient appears to be stated age is alert, pleasant, and cooperative. Patient is in no acute distress and has improved hygiene and grooming Behavior: Patient is calmly seated without any agitated behavior. Speech: Patient's speech is fluent and nonpressured. Mood/Affect: Patient reports their mood is "better", affect is congruent and euthymic, reactive. Suicidality/Homicidality: Patient denies having any suicidal or homicidal ideation intent or plan. Perceptions: Patient denies any auditory or visual hallucinations. Though content/process: There is no evidence of any delusional thought content and thought process is linear and goal-directed. More future oriented Memory and concentration: AOX3, grossly intact for the purposes of this session. Can spell "WORLD" backwards correctly. Judgment and insight: Good Impression: Adjustment disorder with mixed depressed and anxious mood Cannabis use disorder Nicotine dependence Alcohol use disorder, in sustained remission History of TBI Plan: -Continue with discharge today as patient has improved and stabilized psychiatrically and is not currently an imminent threat to themself and/or others. -Continue medications: Remeron 22.5 mg at bedtime, Seroquel 300 mg at bedtime, Cymbalta 60 mg twice daily, trazodone 100 mg at bedtime -Patient was counseled on the need for medication compliance and appropriate follow-up at mental health and also primary care for medical issues. Patient verbalized understanding and agreed. -Social work to help coordinate patients discharge today. also to ensure safe home environment that guns/weapons are either removed from the home or locked away. Social work also to arrange for patients follow up appointments with [facility] for psychiatric care along with follow up with primary care provider. -Patient counseled on abstaining from recreational drugs and marijuana and alcohol. Was informed/educated on the adverse effects on their physical and mental health. Patient verbally agreed and understood. -Patient was instructed to return to the hospital or seek immediate medical care if their psychiatric or medical symptoms do worsen or reoccur. Abnormal Labs 11/30/24 11/30/24 12/01/24 15:08 15:08 08:11 Chloride 109 H Creatinine 0.64 L Alkaline Phosphatase 202 H HDL Cholesterol 64.60 H Ur Specific [place] 1.038 H Urine Protein Trace H Urine RBC 6 H Urine WBC 6 H Calcium Oxalate Crystal Rare H Urine Mucus Few H Urine Opiates Screen Detected H Ur Oxycodone Screen Detected H U Tricyclic Antidepress Detected H U Benzodiazepines Scrn Detected H U Marijuana (THC) Screen Detected H Allergies Allergy/AdvReac Type Severity Reaction Status Date / Time No Known Allergies Allergy Verified 11/30/24 16:52 Vital Signs Temp 97.2 F L 12/03/24 09:00 Pulse 110 H 12/03/24 09:00 Resp 16 12/03/24 09:00 BP 109/78 12/03/24 09:00 Pulse Ox 99 12/03/24 09:00 FiO2 Patient Condition at Discharge: Stable Plan - Discharge Summary Discharge Rx Participant: No New Discharge Prescriptions: New Nicotine 14Mg/24Hr Patch [Habitrol] 1 patch TRANSDERM DAILY patch Mirtazapine [Remeron] 22.5 mg PO HS 30 Days #45 tab Continue HYDROcodone/APAP 10-325MG [[place] 10-325] 1 tab PO Q6HR PRN PRN Reason: Pain DULoxetine HCL [Cymbalta] 60 mg PO BID 30 Days #60 cap traZODone HCL [Desyrel] 100 mg PO HS 30 Days #30 tab Gabapentin 800 mg PO TID 30 Days #90 tab Pantoprazole [Protonix] 40 mg PO DAILY #30 tab LORazepam [Ativan] 0.5 mg PO HS PRN PRN Reason: SLEEP/ANXIETY Rosuvastatin Calcium [Crestor] 40 mg PO DAILY 30 Days #30 tab Tamsulosin [Flomax] 0.4 mg PO BID 30 Days #60 cap QUEtiapine FUMARATE [SEROquel] 300 mg PO HS 30 Days #30 tablet Discontinued Mirtazapine [Remeron] 15 mg PO HS Acetaminophen [Tylenol 8 Hour] 650 mg PO Q6H PRN PRN Reason: Pain Or Fever > 100.5 Docusate [Colace] 100 mg PO DAILY PRN PRN Reason: Constipation Discharge Medication List HYDROcodone/APAP 10-325MG [[place] 10-325] 1 tab PO Q6HR PRN 02/19/24 [History] LORazepam [Ativan] 0.5 mg PO HS PRN 10/26/24 [History] DULoxetine HCL [Cymbalta] 60 mg PO BID 30 Days #60 cap 12/03/24 [Rx] Gabapentin 800 mg PO TID 30 Days #90 tab 12/03/24 [Rx] Mirtazapine [Remeron] 22.5 mg PO HS 30 Days #45 tab 12/03/24 [Rx] Nicotine 14Mg/24Hr Patch [Habitrol] 1 patch TRANSDERM DAILY patch 12/03/24 [Rx] Pantoprazole [Protonix] 40 mg PO DAILY #30 tab 12/03/24 [Rx] QUEtiapine FUMARATE [SEROquel] 300 mg PO HS 30 Days #30 tablet 12/03/24 [Rx] Rosuvastatin Calcium [Crestor] 40 mg PO DAILY 30 Days #30 tab 12/03/24 [Rx] Tamsulosin [Flomax] 0.4 mg PO BID 30 Days #60 cap 12/03/24 [Rx] traZODone HCL [Desyrel] 100 mg PO HS 30 Days #30 tab 12/03/24 [Rx] Follow up Appointment(s)/Referral(s): [facility] [Outside] - 12/06/24 1:30 pm (12/06 @ 13:30 with Paul Mccullough at apartment 12/07 at 9am with Yoko Gutierrez 12/13 at 12pm with Marian Rogers NP) Malina Bass MD [Primary Care Provider] - 1-2 days Activity/Diet/Wound Care/Special Instructions: [facility] Discharge Info Avoid the use of street drugs and alcohol. Take all medications as prescribed. When you are in need of refills on your medications, please contact your outpatient medical provider and/or outpatient psychiatrist. Please go to your scheduled outpatient appointments for aftercare treatment. If symptoms return or become worse, call the crisis line at or and/or visit the nearest emergency room for assistance. [place] [facility] Lifeline - call or text [phone].Medical physician recommends to follow up outpatient in 4-6 weeks to have thyroid levels checked again. Recommendations to have an EMG outpatient on bilateral upper extremities for probable bilateral carpal tunnel. Discharge Disposition: HOME SELF-CARE
== END 2024-12-03 11:53 | disposition home or self-care (01) | DRG 882 ==
LOC: EC 14:36 → 3MHU 19:26
PROVIDERS: ADMIT Psychiatry & Neurology Psychiatry; ATTEND Psychiatry & Neurology Psychiatry
DX: F43.23 Adjustment disorder with mixed anxiety and depressed mood (principal); R45.851 Suicidal ideations; J44.9 Chronic obstructive pulmonary disease, unspecified; F10.20 Alcohol dependence, uncomplicated; F12.10 Cannabis abuse, uncomplicated; I25.10 Atherosclerotic heart disease of native coronary artery without angina pectoris; I25.2 Old myocardial infarction; G47.00 Insomnia, unspecified; F17.210 Nicotine dependence, cigarettes, uncomplicated; E78.2 Mixed hyperlipidemia; G62.9 Polyneuropathy, unspecified; G31.84 Mild cognitive impairment of uncertain or unknown etiology; G89.29 Other chronic pain; M54.50 Low back pain, unspecified; D38.1 Neoplasm of uncertain behavior of trachea, bronchus and lung; Z79.899 Other long term (current) drug therapy; Z85.46 Personal history of malignant neoplasm of prostate; Z92.3 Personal history of irradiation; Z86.11 Personal history of tuberculosis; Z87.820 Personal history of traumatic brain injury; Z96.642 Presence of left artificial hip joint; Z96.653 Presence of artificial knee joint, bilateral; Z98.1 Arthrodesis status; Z95.5 Presence of coronary angioplasty implant and graft; Z71.41 Alcohol abuse counseling and surveillance of alcoholic; Z71.51 Drug abuse counseling and surveillance of drug abuser
CPT/HCPCS: 80053; 80061; 80306; 81001; 82075; 83036; 84443; 85025; 87635; 99285